=== PATIENT | male | born 1955 | race Hispanic/Latino ===

== ENCOUNTER 2017-05-30 21:04 | Emergency (ER) | payer BC ==
--- NOTE | 2017-05-30 22:43 | RAD ---
CERVICAL SPINE THREE VIEWS 05/30/17 HISTORY: Arrested for DWI with negative MRIs and neck pain. COMPARISON: None. FINDINGS: Dense calcification of the right carotid bulb. The C1-2 articulation appears normal although limited due to non true views. Cervical spine alignment is normal. No acute fracture. IMPRESSION: Mild spondylosis. No acute fracture. POS: [facility]
== END 2017-05-30 23:11 ==
LOC: ERS 21:04
DX: F10.129 Alcohol abuse with intoxication, unspecified (principal); M54.2 Cervicalgia; G89.29 Other chronic pain; E11.9 Type 2 diabetes mellitus without complications; I10 Essential (primary) hypertension
CPT/HCPCS: 72040

== ENCOUNTER 2019-07-17 17:32 | Observation (INO) | payer BC, SELFPAY ==
--- NOTE | 2019-07-17 18:27 | RAD ---
PORTABLE CHEST ONE VIEW: 07/17/19 at 6:13 p.m. HISTORY: Chest pain. FINDINGS: There is elevation of the left hemidiaphragm. The heart size is normal. No focal areas of consolidati on, pneumothoraces, or pleural effusions are seen. IMPRESSION: No acute process. POS: [facility]
[2019-07-17 18:36] LABS: #Basophils 0.1 thou/uL (0.0-0.2); #Eosinphils 0.6 thou/uL (0.0-0.7); #Lymphocytes 4.3 thou/uL (1.20-3.40); #Monocytes 1.4 thou/uL (0.11-0.59); #Neutrophils 7.6 thou/uL (1.40-6.50); %Basophils 0.9 % (0.0-1.0); %Eosinophils 4.4 % (0.0-10.0); %Lymphocytes 30.7 % (21.0-51.0); %Monocytes 10.2 % (0.0-10.0); %Neutrophils 53.8 % (42.0-75.0); Hemoglobin 14.4 g/dL (14.0-18.0); Mean Corpuscular HGB CONC 34.4 g/dL (32.0-36.0); Mean Corpuscular Hemoglobin 32.2 pg (27.0-31.0); Mean Corpuscular Volume 93.5 fL (78.0-98.0); Platelet Count 196 thou/uL (130-400); Red Blood Cell (RBC) Count 4.46 mill/uL (4.70-6.10); White Blood Cell (WBC) Count 14.1 thou/uL (4.8-10.8)
[2019-07-17] MEDS ORDERED: Morphine 4 MG/ML VIAL ONE (18:46)
[2019-07-17 18:54] LABS: ALT (SGPT) 12 U/L (8-55); AST (SGOT) 19 U/L (5-34); Albumin 3.4 g/dL (3.4-4.8); Alkaline Phosphatase 308 U/L (40-110); Anion Gap 15 mmol/L (10-20); BUN (Urea Nitrogen) 14 mg/dL (8.4-25.7); Bilirubin, Total 0.5 mg/dL (0.2-1.2); Calc. Creatinine Clearance 0 mL/min (70-130); Calcium 8.4 mg/dL (7.8-10.44); Carbon Dioxide 20 mmol/L (23-31); Chloride 101 mmol/L (98-107); Estimated GFR-MDRD 67; Globulin 3.5 g/dL (2.4-3.5); Glucose 299 mg/dL (80-115); Lipase 50 U/L (8-78); Potassium 4.2 mmol/L (3.5-5.1); Protein, Total 6.9 g/dL (5.8-8.1); Sodium 132 mmol/L (136-145)
[2019-07-17 19:06] LABS: INR-International Normal Ratio 1.2; Prothrombin Time 14.8 SEC (12.0-14.7)
[2019-07-17 19:08] LABS: D-Dimer Test 0.34 *mcg/mL (0.27-0.43)
[2019-07-17 19:13] LABS: Bilirubin Negative (Negative); Blood, Urine Negative (Negative); Clarity Clear (Clear); Glucose, Urine (Dipstick) Greater than 1000 mg/dL (Negative); Leukocyte Negative Leu/uL (Negative); Nitrite Negative (Negative); Protein, Urine (Dipstick) Negative (Neg-Trace); Urobilinogen Normal mg/dL (Less than 2)
--- NOTE | 2019-07-17 20:58 | ULT ---
GALLBLADDER ULTRASOUND: 07/17/19 HISTORY: Elevated LFTs. Epigastric pain. Real time imaging of the right upper quadrant shows a slightly distended appearing gallbladder withou t gallstones. Technologist describes a negative ultrasound Gates's sign. The common duct is 3 mm. Th e visualized liver parenchyma shows no focal findings. It is somewhat coarse and heterogeneous in ech otexture suggesting some fatty change. The pancreas is obscured. Right kidney is normal in size and n ot obstructed. IMPRESSION: Heterogeneous appearance to the liver suggesting some fatty change and a slightly nodular surface con tour which would be compatible with cirrhotic type change. POS: [facility]
[2019-07-17 21:51] LABS: Troponin I 0.018 ng/mL (< 0.028)
[2019-07-18 00:23] VITALS: BMI 30.2
[2019-07-18] MEDS ORDERED: Acetaminophen 325 MG TAB PO PRN (00:23)
[2019-07-18] MEDS ORDERED: Acetaminophen 650 MG Suppository PR PRN (00:23)
[2019-07-18] MEDS ORDERED: Ondansetron PF 4 MG/2 ML Vial IVP PRN (00:23)
[2019-07-18] MEDS ORDERED: Ondansetron ODT 4 MG TAB PO PRN (00:23)
[2019-07-18] MEDS ORDERED: Sodium Chloride 0.9% 1,000 ML IV SCH (00:30)
[2019-07-18] MEDS ORDERED: HumaLOG 300 UNITS/3 ML VIAL SC PRN (00:37)
[2019-07-18] MEDS ORDERED: Dextrose 50% Abboject 50 ML SYRINGE SLOW IVP PRN (00:37)
[2019-07-18] MEDS ORDERED: Dextrose 5% in Water 1,000 ML IV PRN (00:37)
[2019-07-18 01:01] LABS: Lactic Acid 1.7 mmol/L (0.5-2.2)
[2019-07-18 01:10] LABS: Troponin I 0.029 ng/mL (< 0.028)
[2019-07-18 01:44] LABS: Amphetamine Not Detected (NotDetected); Barbiturates Screen Not Detected (NotDetected); Benzodiazepine Screen Not Detected (NotDetected); Cocaine Metabolite Screen Not Detected (NotDetected); Medtox Control Line Valid? VALID (VALID); Medtox Reader # READER 4; Methadone Not Detected (NotDetected); Methamphetamine Not Detected (NotDetected); Opiate Screen Not Detected (NotDetected); Oxycodone Screen Not Detected (NotDetected); Phencyclidine (PCP) Not Detected (NotDetected); THC/Cannabinoid Screen Not Detected (NotDetected); Tricyclic Screen Not Detected (NotDetected)
[2019-07-18 05:17] LABS: #Basophils 0.1 thou/uL (0.0-0.2); #Eosinphils 0.8 thou/uL (0.0-0.7); #Lymphocytes 4.2 thou/uL (1.20-3.40); #Monocytes 1.2 thou/uL (0.11-0.59); #Neutrophils 7.4 thou/uL (1.40-6.50); %Basophils 0.7 % (0.0-1.0); %Lymphocytes 30.8 % (21.0-51.0); %Monocytes 8.6 % (0.0-10.0); Mean Corpuscular Hemoglobin 33.1 pg (27.0-31.0); Mean Corpuscular Volume 94.6 fL (78.0-98.0); Mean Platelet Volume 6.7 fL (7.4-10.4); Platelet Count 177 thou/uL (130-400); RBC Distribution Width 12.1 % (11.5-14.5); Red Blood Cell (RBC) Count 4.24 mill/uL (4.70-6.10); White Blood Cell (WBC) Count 13.7 thou/uL (4.8-10.8)
[2019-07-18 05:35] LABS: Anion Gap 12 mmol/L (10-20); BUN (Urea Nitrogen) 12 mg/dL (8.4-25.7); Calc. Creatinine Clearance 87 mL/min (70-130); Calcium 8.6 mg/dL (7.8-10.44); Carbon Dioxide 25 mmol/L (23-31); Cardiac Risk 2.7 (Less than 4.5); Chloride 102 mmol/L (98-107); Cholesterol 155 mg/dl (< 200 Desired); Estimated GFR-MDRD Greater than 90; Glucose 332 mg/dL (80-115); HDL Cholesterol 58 mg/dL (>60 Neg Risk); LDL Cholesterol, Calculated 86 mg/dL; Sodium 135 mmol/L (136-145); Triglycerides 56 mg/dL (Less than 150)
[2019-07-18 05:40] LABS: Troponin I 0.018 ng/mL (< 0.028)
[2019-07-18] MEDS ORDERED: Famotidine/PF 20 mg/2ml Vial SLOW IVP SCH (09:00)
--- NOTE | 2019-07-18 09:16 | CT ---
CT left shoulder noncontrast HISTORY: Left shoulder pain. FINDINGS: Acromioclavicular and glenohumeral alignment are maintained. Osteophytosis and joint space narrowing of each. Acromion is unremarkable. No acute fracture, dislocation, or aggressive osseous erosions. IMPRESSION: Osteoarthritic changes about the shoulder. No acute osseous abnormalities are demonstrate d.
[2019-07-18] MEDS: Aspirin 81 mg Enteric Coated Tablet PO SCH (09:30)
--- NOTE | 2019-07-18 09:53 | CT ---
CT CERVICAL SPINE WITH CORONAL AND SAGITTAL REFORMATIONS: HISTORY: A 63-year-old male with neck stiffness and pain and limited range of motion. FINDINGS: There are mild degenerative changes. No fracture, subluxation, bony destruction or facet malalignment is seen. No significant central canal stenosis or neural foraminal stenosis is identified. POS: [facility]
[2019-07-18] MEDS ORDERED: Sodium Chloride 0.9% (PF) 10 ML VIAL FS PRN (10:46)
[2019-07-18] MEDS ORDERED: Pantoprazole 40 MG VIAL IVP SCH (11:00)
[2019-07-18 11:16] LABS: Hemoglobin A1c 9.8 % (4.0-6.0)
[2019-07-18] MEDS: HumaLOG 300 UNITS/3 ML VIAL SC PRN (16:48)
[2019-07-18] MEDS: Pantoprazole 40 MG VIAL IVP SCH (21:08)
[2019-07-18] MEDS: Insulin Glargine 8 UNITS in Pre-Filled Syringe 1 EACH SC SCH (21:09)
--- NOTE | 2019-07-19 07:49 | HP ---
TIME OF ASSESSMENT: 0030 hours. CHIEF COMPLAINT: Neck pain and chest pain. HISTORY OF PRESENT ILLNESS: Mr. Castañeda is a 63-year-old man, who has a history of hypertension and diabetes, presenting with complaints of chest pain for the last 3 weeks. The patient states he has had the pain once every other day and it has come on while he has exerted himself and while at rest. There is no particular pattern to it, and he is not sure how long it lasts. However today, it became more severe and lasted 1 to 2 hours. The patient states he had gone for a very long walk and suddenly had pain across the center of his chest radiating into his left shoulder and left side of his neck. The patient reports having chronic neck pain and stiffness with limited range of motion, which has been constant since little less than a year ago before he went to group home. The patient was recently released few weeks ago. He states he has had x-ray imaging in the past, and I do see an x-ray from Friday and there is a cervical spine x-ray from May 2017, that demonstrated mild spondylosis. The patient states he thought the neck pain was due to the way he was sleeping while in group home, but it has not improved since he has been released. He denies any trauma/injuries. With regard to the chest pain, he states it had resolved once he arrived to the emergency department. He has had no recurring chest pain since. He denies any associated shortness of breath or diaphoresis. No lightheadedness. Denies having any recent cough or hemoptysis. Reports having issues with epigastric discomfort and occasional nausea. When he has felt the chest discomfort in the past, he states he felt it was associated with increased belching and relieved by belching. Denies any bowel changes. No dysphagia or odynophagia. No significant weight changes. Denies any lower extremity swelling or edema. All other review of systems are negative. ED COURSE: In the emergency department, the patient underwent an EKG, which demonstrated a normal sinus rhythm with a heart rate of 78. He had no ST changes or T-wave abnormalities. He was given 324 mg of aspirin and 4 mg of morphine. He underwent laboratory studies, which showed a white count of 14.1, hemoglobin of 14.4, and platelets 196. PT 14.8, INR 1.2, and PTT 30. D-dimer 0.34. Sodium 132, potassium 4.2, chloride 104, BUN 14, creatinine 1.12, GFR 67, glucose 299, and alkaline phosphatase 308. LFTs unremarkable. Troponin negative x2. Albumin 3.4. Lipase normal. BNP 10.3. TSH 2.3934. Urinalysis notable for greater than 1000 glucose, otherwise unremarkable. A plasma alcohol level was checked and negative. Chest x-ray obtained in the emergency department showed no acute cardiopulmonary process. He also underwent an abdominal ultrasound, which showed heterogeneous appearance of the liver, suggesting fatty change and a slightly nodular surface contour, felt to be compatible with cirrhotic-type changes. He was noted to have a slightly distended appearing gallbladder without gallstones. Negative Gates sign. Common bile duct measuring 3 mm. PAST MEDICAL HISTORY: 1. Type 2 diabetes mellitus. 2. Hypertension. 3. Chronic neck pain. PAST SURGICAL HISTORY: Surgery to his left hand due to a deep laceration couple of inches above the wrist. He has residual numbness and limited mobility involving this hand. SOCIAL HISTORY: He denies any tobacco use or alcohol consumption. States he has not had alcohol since before he went to group home. Denies any illicit drug use. ALLERGIES: NO KNOWN DRUG ALLERGIES. CURRENT MEDICATIONS: The patient states he ran out of his medications after being released from group home. He was only given two weeks worth of medications. He is on the following; 1. Aspirin. 2. Humalog. 3. Lantus. 4. Lisinopril. 5. Metformin. PHYSICAL EXAMINATION: GENERAL: The patient appears thin, well developed, and in no acute distress. VITAL SIGNS: Temperature 98.3, pulse 70, respirations 18, O2 saturation 97% on room air, and blood pressure 165/74. HEENT: Normocephalic and atraumatic. Pupils are equal, round, and reactive to light. Sclerae without icterus. Oropharynx is clear. NECK: With some discomfort on palpation along the cervical spine. The patient states this is chronic. Limited range of motion. LUNGS: Clear to auscultation bilaterally without any wheezes, rales, or rhonchi. CARDIAC: Regular rate and rhythm. Audible murmur. ABDOMEN: Soft, nondistended. Epigastric discomfort with palpation. No guarding or rigidity. Negative Gates sign. : No renal angle tenderness. EXTREMITIES: No lower leg swelling or edema. NEUROLOGIC: Alert and oriented x3. SKIN: Warm and dry. INVESTIGATIONS: As mentioned above in the HPI. IMPRESSION AND PLAN: Mr. Castañeda is a 63-year-old gentleman, who has been referred for the following; 1. Acute coronary syndrome rule out. The patient with complaints of chest pain for the last 2 to 3 weeks, which was significantly worse today. He rated it 10/10 in severity, lasting until he arrived to the emergency department. He has been given aspirin 324 mg and morphine. He is without any chest pain at present. Concerns for possible acute coronary syndrome. We will continue daily aspirin. We will obtain a lipid panel in the morning. We will keep him n.p.o. after midnight. Stress test ordered, which he states he has never had done before. He does have risk factors with history of hypertension and diabetes. Troponins negative x2. We will continue to trend troponins. Echo ordered. We will add urine drug screen. 2. Chronic neck pain. The patient states he has had severe neck pain with limited range of motion for nearly a year. He states the pain today in his chest radiated to his left shoulder and up into his neck. There is a possibility that the pain in his chest could have been due to radiculopathy associated with underlying cervical spine problems. We will obtain a CT cervical spine and given the limited range of motion and tenderness involving the left shoulder, we will obtain CT of the shoulder and shoulder joint as well. 3. Diabetes mellitus, uncontrolled. The patient ran out of medications 2 to 3 weeks ago. He has no PCP. We will monitor blood glucose and initiate insulin sliding scale. We will hold metformin, which he was previously on. 4. Hypertension. Monitor blood pressure and resume home medications once verified. 5. Epigastric pain. The patient with history of heavy alcohol use before going to group home. LFTs notable for an alkaline phosphatase of 308, otherwise unremarkable. Lipase normal. He could have some underlying gastritis; therefore, we will start pantoprazole. 6. Deep venous thrombosis prophylaxis with mechanical SCDs. 7. Code status, full. Surrogate decision maker is Marcellus Castañeda, his son. The patient's case to be discussed with attending for further recommendations. Job ID: [id number]
[2019-07-19] MEDS ORDERED: ADENOSINE 60 MG/20 ML VIAL ONE (09:34)
[2019-07-19] MEDS: Aspirin 81 mg Enteric Coated Tablet PO SCH (11:52)
[2019-07-19] MEDS: Pantoprazole 40 MG VIAL IVP SCH ×2 (11:53→20:49)
--- NOTE | 2019-07-19 13:12 | NM ---
CARDIAC SPECT: CLINICAL HISTORY: 63-year-old male with chest pain, hypertension, diabetes. TECHNIQUE: A myocardial perfusion scan was performed using the single isotope one day protocol with technetium-9 9m sestamibi. 10 mCi were injected intravenously for the rest exam followed by 30 mCi for the stress exam. Pharmacologic stress with Adenosine was monitored and interpreted by Ameya Rapp. FINDINGS: There is a small area of fixed defect in the distal anterior wall. There is normal contractility and wall thickening indicating this is most likely artifactual. No reversible defects are seen. GATED SPECT LVEF: 68%. WALL MOTION EXAM: Normal. IMPRESSION: No evidence of reversible ischemia. POS: [facility]
[2019-07-19 15:31] LABS: #Basophils 0.1 thou/uL (0.0-0.2); #Eosinphils 0.7 thou/uL (0.0-0.7); #Lymphocytes 3.3 thou/uL (1.20-3.40); #Monocytes 1.1 thou/uL (0.11-0.59); #Neutrophils 7.2 thou/uL (1.40-6.50); %Basophils 0.8 % (0.0-1.0); %Eosinophils 5.3 % (0.0-10.0); %Lymphocytes 26.8 % (21.0-51.0); %Monocytes 8.7 % (0.0-10.0); %Neutrophils 58.3 % (42.0-75.0); Hemoglobin 13.3 g/dL (14.0-18.0); Mean Corpuscular HGB CONC 34.8 g/dL (32.0-36.0); Mean Corpuscular Hemoglobin 33.1 pg (27.0-31.0); Mean Corpuscular Volume 95.2 fL (78.0-98.0); Mean Platelet Volume 6.9 fL (7.4-10.4); Platelet Count 160 thou/uL (130-400); RBC Distribution Width 11.9 % (11.5-14.5); Red Blood Cell (RBC) Count 4.02 mill/uL (4.70-6.10); White Blood Cell (WBC) Count 12.4 thou/uL (4.8-10.8)
[2019-07-19 15:42] LABS: Anion Gap 9 mmol/L (10-20); BUN (Urea Nitrogen) 15 mg/dL (8.4-25.7); Calc. Creatinine Clearance 87 mL/min (70-130); Calcium 8.3 mg/dL (7.8-10.44); Carbon Dioxide 25 mmol/L (23-31); Chloride 103 mmol/L (98-107); Estimated GFR-MDRD Greater than 90; Glucose 313 mg/dL (80-115); Potassium 4.1 mmol/L (3.5-5.1); Sodium 133 mmol/L (136-145)
[2019-07-19] MEDS: HumaLOG 300 UNITS/3 ML VIAL SC PRN (17:46)
[2019-07-19] MEDS: Insulin Glargine 8 UNITS in Pre-Filled Syringe 1 EACH SC SCH (20:53)
[2019-07-20] MEDS: Aspirin 81 mg Enteric Coated Tablet PO SCH (08:10)
[2019-07-20] MEDS: Pantoprazole 40 MG VIAL IVP SCH (08:11)
[2019-07-20 08:22] VITALS: BP 111/67; TEMP 97.7
[2019-07-20] MEDS ORDERED: Lisinopril 20 MG TAB PO SCH (09:00)
--- NOTE | 2019-07-21 10:27 | DIS ---
DATE OF ADMISSION: 07/17/2019 DATE OF DISCHARGE: 07/20/2019 DISCHARGE DIAGNOSES: 1. Chest pain. 2. Chronic neck pain. 3. Diabetes. 4. Hypertension. HOSPITAL COURSE: The patient is a very pleasant 63-year-old male with history of hypertension, diabetes, who just recently got out of [facility], who complains of chest pain going on for the past 3 weeks. The patient at this time underwent troponin checks and his troponins were negative, except for the one that was mildly elevated. On physical examination, he was found to have a systolic murmur and he did undergo an echocardiogram which indicated an EF of 55% to 60%, with [id number] aortic stenosis. At this time, he underwent a stress test, which indicated EF of 68%, wall motion was normal, however he did have a small fixed defect in the distal anterior wall. No reversible defects were seen. The patient also had an abdominal ultrasound which indicated cirrhotic liver, fatty changes. The patient does have a history of drinking prior to his incarceration. The patient did have an upper extremity CT which indicated osteoarthritis to his shoulder. He also had a cervical spine CT given his neck pain, which indicated mild degenerative changes. No fracture or subluxation noted. No significant central canal stenosis noted. The patient's chest pain improved. He will be discharged home. He will follow up with his primary. HOME MEDICATIONS: 1. Insulin, he was taking only regular insulin. His insulin has been changed to 70/30 of 10 units twice a day. 2. Lisinopril 20 mg daily. 3. Metformin 1000 mg b.i.d. 4. Aspirin 81 mg daily. 5. Pravastatin 20 mg daily. 6. Duloxetine 60 mg daily. I did mention to him that he needs to stop taking his short-acting since he is going to be on a combination of short-acting and long-acting insulin. His prescriptions were called in pharmacy since he had no money to purchase that prescriptions. We did provide him services for that also. PHYSICAL EXAMINATION: VITAL SIGNS: His discharge vitals; temp 97.8, pulse 68, blood pressure 117/68, respirations 16, 97% on room air. GENERAL: He is awake, alert, and oriented x3. Does not appear in any distress. CV: S1 and S2 present. No murmurs, rubs, or gallops. Again, he will be discharged home. He will follow up with primary. Job ID: [id number]
== END 2019-07-20 12:44 | disposition home or self-care (01) ==
LOC: ERS 17:32 → 2SW 20:45
PROVIDERS: ADMIT Family Medicine; ATTEND Family Medicine
DX: R07.9 Chest pain, unspecified (principal); G89.29 Other chronic pain; M54.2 Cervicalgia; E11.9 Type 2 diabetes mellitus without complications; I10 Essential (primary) hypertension; R10.13 Epigastric pain; R79.89 Other specified abnormal findings of blood chemistry; I35.0 Nonrheumatic aortic (valve) stenosis; M19.012 Primary osteoarthritis, left shoulder; Z79.4 Long term (current) use of insulin; Z79.82 Long term (current) use of aspirin; Z79.899 Other long term (current) drug therapy
CPT/HCPCS: 36415; 36416; 71045; 72125; 76705; 78452; 80048; 80053; 80061; 80306; 80307; 81003; 83036; 83605; 83690; 83735; 83880; 84443; 84484; 85025; 85379; 85610; 85730; 93005; 93017; 93306; 96374; 96375; 96376; A9500; C9113; G0378; J0153; J1815; J2270; S0028

== ENCOUNTER 2020-03-28 14:26 | Observation (INO) | payer OTHER, SELFPAY ==
[2020-03-28 14:56] LABS: #Basophils 0.1 thou/uL (0.0-0.2); #Lymphocytes 3.1 thou/uL (1.20-3.40); #Monocytes 0.9 thou/uL (0.11-0.59); #Neutrophils 5.8 thou/uL (1.40-6.50); %Basophils 1.2 % (0.0-1.0); %Eosinophils 8.8 % (0.0-10.0); %Lymphocytes 28.4 % (21.0-51.0); %Monocytes 7.8 % (0.0-10.0); %Neutrophils 53.8 % (42.0-75.0); Hemoglobin 13.2 g/dL (14.0-18.0); Mean Corpuscular Hemoglobin 30.8 pg (27.0-31.0); Mean Corpuscular Volume 90.7 fL (78.0-98.0); Mean Platelet Volume 6.5 fL (7.4-10.4); Platelet Count 214 thou/uL (130-400); RBC Distribution Width 12.4 % (11.5-14.5); Red Blood Cell (RBC) Count 4.28 mill/uL (4.70-6.10); White Blood Cell (WBC) Count 10.8 thou/uL (4.8-10.8)
--- NOTE | 2020-03-28 15:08 | CT ---
CT BRAIN WITHOUT CONTRAST: HISTORY: Altered mental status, hypotension COMPARISON: 08/19/2016 FINDINGS: No evidence of acute infarct, hemorrhage, midline shift or abnormal extra-axial fluid collections is seen. The ventricular size is appropriate and the basilar cisterns are patent. The bony calvarium is intact. The visualized paranasal sinuses and mastoid air cells are well aerated. IMPRESSION: No CT evidence of acute intracranial process.
[2020-03-28 15:10] LABS: ALT (SGPT) 12 U/L (8-55); AST (SGOT) 20 U/L (5-34); Albumin 3.1 g/dL (3.4-4.8); Alkaline Phosphatase 183 U/L (40-110); Anion Gap 16 mmol/L (10-20); BUN (Urea Nitrogen) 7 mg/dL (8.4-25.7); Bilirubin, Total 0.5 mg/dL (0.2-1.2); Calc. Creatinine Clearance 0 mL/min (70-130); Calcium 8.1 mg/dL (7.8-10.44); Carbon Dioxide 19 mmol/L (23-31); Chloride 103 mmol/L (98-107); Estimated GFR-MDRD 86; Globulin 3.8 g/dL (2.4-3.5); Glucose 403 mg/dL (80-115); Potassium 3.7 mmol/L (3.5-5.1); Protein, Total 6.9 g/dL (5.8-8.1); Sodium 134 mmol/L (136-145)
--- NOTE | 2020-03-28 15:10 | RAD ---
XR Chest 1 View Portable HISTORY: Hypoglycemia and hypotension COMPARISON: 07/17/2019 FINDINGS: The heart size is normal. There is continued elevation of the left hemidiaphragm. The lungs are without focal areas of consolidation, pneumothorax or pleural effusions. IMPRESSION: No radiographic evidence of acute cardiopulmonary process.
[2020-03-28] MEDS ORDERED: Potassium Chloride 20 MEQ TAB ONE (17:23)
[2020-03-28] MEDS ORDERED: Insulin Regular 300 UNITS/3 ML VIAL ONE (17:23)
[2020-03-28 17:56] LABS: Base Excess-Venous 2.1 mmol/L (-2.0 to 3.0); Bicarbonate (HCO3v) 24.3 mmol/L (22.0-28.0); CO2 Tension (PvCO2) 30.3 mmHg (40.0-50.0); Chloride 108 mmol/L (98-107); Hemoglobin - Calc 13.2 g/dL (14.0-18.0); Potassium 3.4 mmol/L (3.5-5.1); Sodium 141 mmol/L (138-145); T. Carbon Dioxide 25.3 mmol/L (22.0-28.0); vO2 Saturation-calc 86.4 % (60.0-85.0)
--- NOTE | 2020-03-28 18:13 | PDOC.HHP ---
Hospitalist HPI - History of Present Illness hyperglycemia History of Present Illness: This is a 64-year-old male patient with a history of diabetes mellitus who upon presentation to his PCP was referred to the ED on account of hypoglycemia with glucose above 500. He was brought in by EMS. Patient was on for the past month or so he had run out of his insulin syringe and therefore has not been giving himself insulin for his diabetes. He admits to polyuria polydipsia and nocturia. He also notes having passed out a couple of times within the past week all of a sudden. He denies any associated palpitation, headaches or dizziness. He however complains of severe easy fatigability. Of note he was recently admitted for chest pain and an echo showed EF of 65 to 60% with somewhat thickened aortic valves. On arrival of the ED His blood glucose was noted to be 403, bicarb was 19, anion gap was 12 however beta hydroxybutyric acid was elevated at 1.01. He also had an isolated elevated alkaline phosphatase. In the ED was given a bag of IV fluids and 10 units regular insulin with his blood glucose improving to 267 and then 121. Given his history of recent falls CT scan of his head was done which was negative for any acute events. Potassium was also replaced with insulin. Hospitalist team was consulted to admit patient. Hospitalist ROS - Review of Systems Constitutional: denies: fever, chills, sweats Respiratory: reports: shortness of breath, SOB with excertion. denies: cough, hemoptysis Cardiovascular: denies: chest pain, palpitations, orthopnea, paroxysmal noc. dyspnea Gastrointestinal: denies: nausea, vomiting, abdominal pain, diarrhea Genitourinary: reports: frequency. denies: dysuria, incontinence, hematuria, retention Neurological: reports: weakness. denies: numbness, incoordination, change in speech - Medication Medications: Aspirin 81 mg daily Duloxetine 60 mg daily Pravastatin 20 mg daily Insulin NPH 10 units subcu twice daily Lisinopril 20 mg daily Metformin 20 mg daily Allergies: No known drug allergies - Exam General - other findings: Patient alert and oriented. No acute distress. Heart - other findings: S1-S2 present and normal. No murmurs gallops or rubs. Respiratory - other findings: Air entry adequate bilaterally. No rhonchi or rales Gastrointestinal - other findings: Soft, nontender bowel sounds present and normal Extremities - other findings: No pedal edema Neurological: cranial nerve grossly intact, no new deficit Psychiatric: A&O x 3 Hospitalist Results - Labs Result Diagrams: 03/28/20 14:47 03/28/20 17:38 Lab results: WBC 10.8 thou/uL (4.8-10.8) 03/28/20 14:47 Hgb 13.2 g/dL (14.0-18.0) L 03/28/20 14:47 Hct 38.8 % (42.0-52.0) L 03/28/20 14:47 MCV 90.7 fL (78.0-98.0) 03/28/20 14:47 Plt Count 214 thou/uL (130-400) 03/28/20 14:47 Neutrophils % 53.8 % (42.0-75.0) 03/28/20 14:47 VBG pCO2 30.3 mmHg (40.0-50.0) L 03/28/20 17:51 VBG pO2 45.7 mmHg (35.0-45.0) H 03/28/20 17:51 Sodium 134 mmol/L (136-145) L 03/28/20 14:47 Potassium 3.7 mmol/L (3.5-5.1) 03/28/20 14:47 Chloride 103 mmol/L (98-107) 03/28/20 14:47 Carbon Dioxide 19 mmol/L (23-31) L 03/28/20 14:47 BUN 7 mg/dL (8.4-25.7) L 03/28/20 14:47 Creatinine 0.90 mg/dL (0.7-1.3) 03/28/20 14:47 Glucose 403 mg/dL (80-115) H 03/28/20 14:47 Calcium 8.1 mg/dL (7.8-10.44) 03/28/20 14:47 Total Bilirubin 0.5 mg/dL (0.2-1.2) 03/28/20 14:47 AST 20 U/L (5-34) 03/28/20 14:47 ALT 12 U/L (8-55) 03/28/20 14:47 Alkaline Phosphatase 183 U/L (40-110) H 03/28/20 14:47 Troponin I Less than 0.010 ng/mL (< 0.028) 03/28/20 14:44 Serum Total Protein 6.9 g/dL (5.8-8.1) 03/28/20 14:47 Albumin 3.1 g/dL (3.4-4.8) L 03/28/20 14:47 Hospitalist H&P A/P - Plan Plan: This is a 64-year-old male patient with a history of coronary artery disease, diabetes mellitus on insulin who presents as a transfer from his PCP on account of hyperglycemia with mild DKA. He will be admitted for observation and managed for hyperglycemia DKA Glucose was above 500 with beta hydroxybutyrate at 1.01 However did not have an anion gap. He had a mild metabolic acidosis. Hypoglycemia resolved with 10 units of regular insulin with glucose in the 100s after 1 dose. We will monitor overnight Discharge with prescription for his syringes and needles for insulin administration. Elevated alkaline phosphatase Unclear the significance of this We will repeat Hypertension Hold lisinopril for tonight Blood pressures were soft Depression Continue Cymbalta once verified Falls Has had recurrent falls Dyspnea likely secondary to hypotension from polyuria due to diabetes mellitus and hyperglycemia. This may be possible syncope We will check orthostatics Fall precautions Monitoring on telemetry. VTE prophylaxisLovenox
[2020-03-28 18:15] LABS: Troponin I Less than 0.010 ng/mL (< 0.028)
[2020-03-28 18:22] LABS: Chloride 105 mmol/L (98-107); Potassium 3.5 mmol/L (3.5-5.1); Sodium 137 mmol/L (136-145)
[2020-03-28 18:23] LABS: Calcium 8.1 mg/dL (7.8-10.44); Glucose 267 mg/dL (80-115)
[2020-03-28 18:25] LABS: Anion Gap 16 mmol/L (10-20); Carbon Dioxide 20 mmol/L (23-31)
[2020-03-28 18:26] LABS: Calc. Creatinine Clearance 0 mL/min (70-130); Estimated GFR-MDRD Greater than 90
[2020-03-28 18:27] LABS: BUN (Urea Nitrogen) 6 mg/dL (8.4-25.7); Phosphorus 2.5 mg/dL (2.3-4.7)
[2020-03-28 18:28] LABS: Magnesium 1.9 mg/dL (1.6-2.6)
[2020-03-28] MEDS ORDERED: Enoxaparin Sodium 40 MG/0.4 ML SYRINGE SC SCH (19:00)
[2020-03-28] MEDS ORDERED: Acetaminophen 325 MG TAB PO PRN (20:17)
[2020-03-28 20:50] LABS: Bilirubin Negative (Negative); Blood, Urine 2+ (Negative); Clarity Clear (Clear); Glucose, Urine (Dipstick) Greater than 1000 mg/dL (Negative); Ketone, Urine 20 mg/dL (Negative); Leukocyte Negative Leu/uL (Negative); Nitrite Negative (Negative); Protein, Urine (Dipstick) Negative (Neg-Trace); Specific Gravity, Urine 1.034 (1.002-1.036)
[2020-03-28] MEDS ORDERED: Dextrose 5% in Water 1,000 ML IV PRN (21:35)
[2020-03-28] MEDS ORDERED: HumaLOG 300 UNITS/3 ML VIAL SC PRN (21:35)
[2020-03-28] MEDS ORDERED: Dextrose 50% Abboject 50 ML SYRINGE SLOW IVP PRN (21:35)
[2020-03-28 21:53] LABS: Troponin I Less than 0.010 ng/mL (< 0.028)
[2020-03-28 22:52] VITALS: BMI 30.1
[2020-03-28 22:55] LABS: Anion Gap 15 mmol/L (10-20); BUN (Urea Nitrogen) 6 mg/dL (8.4-25.7); Calc. Creatinine Clearance 93 mL/min (70-130); Carbon Dioxide 20 mmol/L (23-31); Chloride 106 mmol/L (98-107); Estimated GFR-MDRD Greater than 90; Glucose 238 mg/dL (80-115); Potassium 3.7 mmol/L (3.5-5.1); Sodium 137 mmol/L (136-145)
[2020-03-29] MEDS: NS 0.9% w/ 40 MEQ KCL 1,000 ML IV SCH ×3 (01:38→09:31)
[2020-03-29] MEDS: HumaLOG 300 UNITS/3 ML VIAL SC PRN ×2 (01:39→21:11)
[2020-03-29 02:31] LABS: Anion Gap 12 mmol/L (10-20); BUN (Urea Nitrogen) 9 mg/dL (8.4-25.7); Calc. Creatinine Clearance 79 mL/min (70-130); Calcium 7.9 mg/dL (7.8-10.44); Carbon Dioxide 22 mmol/L (23-31); Chloride 105 mmol/L (98-107); Estimated GFR-MDRD 79; Glucose 494 mg/dL (80-115); Potassium 4.5 mmol/L (3.5-5.1); Sodium 134 mmol/L (136-145)
[2020-03-29] MEDS: Sodium Chloride 0.9% 1,000 ML IV SCH ×2 (10:06→22:25)
[2020-03-29] MEDS ORDERED: metFORMIN 500 MG TAB PO SCH (10:30)
[2020-03-29 12:37] LABS: SARS-CoV-2 MS2 Positive; SARS-CoV-2 N Gene Negative; SARS-CoV-2 S Gene Negative; SARS-CoV-2 by NAA Not Detected (NotDetected); SARS-CoV-2 orf1ab Negative
[2020-03-29] MEDS ORDERED: HumaLOG 300 UNITS/3 ML VIAL SC PRN (12:49)
[2020-03-29] MEDS ORDERED: Insulin Glargine 15 UNITS in Pre-Filled Syringe 1 EACH SC SCH (13:00)
[2020-03-29 13:06] LABS: Hemoglobin A1c 11.3 % (4.0-6.0)
[2020-03-29] MEDS ORDERED: Acetaminophen 325 MG TAB PO PRN (17:19)
[2020-03-29] MEDS ORDERED: Acetaminophen 325 MG TAB PO SCH (17:30)
[2020-03-29] MEDS: metFORMIN 500 MG TAB PO SCH (18:00)
--- NOTE | 2020-03-29 18:50 | PDOC.HOSPP ---
- Subjective Encounter Date: 03/29/20 Encounter Time: 09:00 Subjective: no overnight events. this morning, feeling well and has no complaints. - Objective Vital Signs & Weight: Vital Signs (12 hours) Temp Pulse Resp BP Pulse Ox 03/29/20 15:35 97.7 F 96 18 146/91 H 96 03/29/20 10:45 98.2 F 91 16 126/74 94 L 03/29/20 08:00 97.6 F 88 18 125/81 95 Weight Weight 154 lb 7 oz I&O: 03/28/20 03/29/20 03/30/20 06:59 06:59 06:59 Intake Total 1910 Output Total 1500 Balance 410 Result Diagrams: 03/28/20 14:47 03/29/20 02:04 Additional Labs: Accuchecks 03/29/20 03/29/20 03/29/20 17:25 10:39 06:12 POC Glucose 250 H 376 H 258 H 03/29/20 03/28/20 03/28/20 00:58 22:40 19:13 POC Glucose 405 H 457 H 121 H Hospitalist ROS - Review of Systems Constitutional: denies: chills, sweats Respiratory: denies: cough, shortness of breath Cardiovascular: denies: chest pain, palpitations Gastrointestinal: denies: nausea, vomiting, abdominal pain, diarrhea Genitourinary: denies: frequency - Medication Medications: Active Medications Generic Name Dose Route Start Last Admin Trade Name Freq PRN Reason Stop Dose Admin Sodium Chloride 1,000 mls @ 100 mls/hr 03/29/20 09:00 03/29/20 10:06 Normal Saline 0.9% IV 1,000 mls .Q10H MONI Administration Insulin Human Lispro 0 units 03/29/20 01:09 03/29/20 01:39 Humalog SC 5 unit .BEDTIME SLIDING SC PRN Administration BEDTIME SLIDING SCALE Protocol Insulin Human Lispro 0 units 03/29/20 12:49 03/29/20 17:58 Humalog 300 Units/3 Ml Vial SC 3 unit .MILD SLIDING SCALE PRN Administration Mild Correctional Scale Metformin HCl 1,000 mg 03/29/20 17:00 03/29/20 18:00 Metformin 500 Mg Tab PO 1,000 mg BID-WM MONI Administration - Exam General Appearance: NAD, awake alert General - other findings: obese Neck: no JVD Heart: RRR, no murmur, no gallops, no rubs Respiratory: CTAB, no wheezes, no rales, no ronchi Gastrointestinal: soft, non-tender, non-distended, normal bowel sounds Extremities: no edema Psychiatric: normal affect, normal behavior, A&O x 3 Hosp A/P - Plan #DKA #T2DM A1c grossly elevated will require subq regimen Elevated alkaline phosphatase GGT, vitamin D Hypertension continue to hold lisinopril Depression Continue Cymbalta Falls Has had recurrent falls Dyspnea likely secondary to hypotension from polyuria due to diabetes mellitus and hyperglycemia. This may be possible syncope We will check orthostatics Fall precautions Monitoring on telemetry. full code VTE prophylaxisLovenox
[2020-03-29 19:41] LABS: Anion Gap 13 mmol/L (10-20); BUN (Urea Nitrogen) 5 mg/dL (8.4-25.7); Calc. Creatinine Clearance 97 mL/min (70-130); Calcium 8.2 mg/dL (7.8-10.44); Carbon Dioxide 21 mmol/L (23-31); Chloride 105 mmol/L (98-107); Estimated GFR-MDRD Greater than 90; Glucose 227 mg/dL (80-115); Potassium 3.6 mmol/L (3.5-5.1); Sodium 135 mmol/L (136-145)
[2020-03-29] MEDS ORDERED: Simvastatin 10 MG TAB PO SCH (21:00)
[2020-03-29] MEDS ORDERED: DULoxetine 60 MG CAP PO SCH (21:00)
[2020-03-29] MEDS ORDERED: Cyclobenzaprine 10 MG TAB PO SCH (21:00)
[2020-03-30 05:04] LABS: Anion Gap 11 mmol/L (10-20); BUN (Urea Nitrogen) 4 mg/dL (8.4-25.7); Calc. Creatinine Clearance 103 mL/min (70-130); Calcium 8.1 mg/dL (7.8-10.44); Carbon Dioxide 22 mmol/L (23-31); Chloride 109 mmol/L (98-107); Estimated GFR-MDRD Greater than 90; Glucose 217 mg/dL (80-115); Magnesium 1.7 mg/dL (1.6-2.6); Potassium 3.7 mmol/L (3.5-5.1); Sodium 138 mmol/L (136-145)
[2020-03-30] MEDS: HumaLOG 300 UNITS/3 ML VIAL SC PRN ×2 (06:26→11:45)
[2020-03-30] MEDS: Sodium Chloride 0.9% 1,000 ML IV SCH (08:38)
[2020-03-30] MEDS: metFORMIN 500 MG TAB PO SCH (08:39)
[2020-03-30] MEDS ORDERED: Insulin Glargine 15 UNITS in Pre-Filled Syringe 1 EACH SC SCH (09:00)
[2020-03-30] MEDS ORDERED: Aspirin 81 mg Enteric Coated Tablet PO SCH (09:00)
[2020-03-30] MEDS ORDERED: Lisinopril 10 MG TAB PO SCH (09:00)
[2020-03-30] MEDS ORDERED: Ergocalciferol 1.25 MG(50,000 UNITS) CAP PO SCH (09:30)
[2020-03-30 12:06] VITALS: BP 176/87; TEMP 97.7
--- NOTE | 2020-03-31 08:06 | DIS ---
DATE OF ADMISSION: 03/28/2020 DATE OF DISCHARGE: 03/30/2020 HOSPITAL COURSE: Mr. Castañeda is a 64-year-old male with medical history of type 2 diabetes, presented for hyperglycemia. He was referred from his primary care physician after he was found to have grossly elevated blood pressure and hyperglycemia in the clinic. He was diagnosed with DKA and was started on IV insulin regimen. His mild anion gap closed promptly. A1c was 11.3, so the patient was discharged on subcu insulin regimen in addition to his metformin. Prior to discharge, the patient was educated regarding management of diabetes and was requested to follow up with his primary care physician within three days in order to follow his blood glucose levels. PHYSICAL EXAMINATION: VITAL SIGNS: Blood pressure 176/87, pulse 108, respiratory rate 20, oxygen saturation 95% on room air, and temperature 97.7. GENERAL: Lying comfortably in bed. Awake and alert, obese. HEENT: Normocephalic and atraumatic. CARDIAC: Regular rate and rhythm. No murmurs, gallops, or rubs. LUNGS: Clear to auscultation bilaterally. No wheezing, rales, or rhonchi. GI: Soft, nontender, and nondistended. Normal bowel sounds. EXTREMITIES: No edema. PSYCHIATRIC: Proper mood and affect. Alert and oriented x3. Of note, the patient was found to have moderate to severe aortic stenosis based on echocardiography. However, there was no indication for surgical intervention based on peak velocity and mean gradient. MEDICATION LIST: New medications: 1. Novolin 70/30, 15 units subcu b.i.d. before breakfast and before dinner. 2. Drisdol 1.25 mg every week for 8 weeks. Continued medications: 1. Duloxetine. 2. Aspirin. 3. Flexeril. 4. Metformin 1000 mg p.o. b.i.d. with meals. 5. Pravastatin. Modified medications: Lisinopril was changed from 20 mg daily to 10 mg daily. Job ID: [id number]
[2020-04-06] MEDS ORDERED: Ergocalciferol 1.25 MG(50,000 UNITS) CAP PO SCH (09:00)
== END 2020-03-30 16:09 | disposition home or self-care (01) ==
LOC: ERS 14:26 → 2SW 17:20
PROVIDERS: ADMIT Student in an Organized Health Care Education/Training Program; ATTEND Student in an Organized Health Care Education/Training Program
DX: E11.10 Type 2 diabetes mellitus with ketoacidosis without coma (principal); E11.65 Type 2 diabetes mellitus with hyperglycemia; I35.0 Nonrheumatic aortic (valve) stenosis; I25.10 Atherosclerotic heart disease of native coronary artery without angina pectoris; I10 Essential (primary) hypertension; F32.9 Major depressive disorder, single episode, unspecified; E78.5 Hyperlipidemia, unspecified; E78.00 Pure hypercholesterolemia, unspecified; Z79.4 Long term (current) use of insulin; Z79.82 Long term (current) use of aspirin; Z79.899 Other long term (current) drug therapy; Z20.828 Contact with and (suspected) exposure to other viral communicable diseases
CPT/HCPCS: 36415; 36416; 70450; 71045; 80048; 80053; 81003; 82010; 82306; 82330; 82803; 82977; 83036; 83735; 84100; 84484; 85025; 87635; 90471; 90732; 93005; 93306; 96360; 96361; 96372; 96374; G0009; G0378; J1650; J1815; J3480; U0003

== ENCOUNTER 2020-08-17 07:31 | Inpatient (IN) | payer OTHER, SELFPAY ==
[2020-08-17] MEDS ORDERED: Morphine 4 MG/ML VIAL ONE (07:58)
[2020-08-17] MEDS ORDERED: Ondansetron PF 4 MG/2 ML Vial ONE (07:58)
--- NOTE | 2020-08-17 08:04 | RAD ---
Portable frontal chest radiograph: 08/17/2020 COMPARISON: 06/21/2020 HISTORY: Chest pain FINDINGS: There is elevation of the left hemidiaphragm. There is increased linear interstitial densit y noted bilaterally, stable. No pneumothorax, focal consolidation, or alveolar edema. IMPRESSION: No significant interval change.
[2020-08-17 08:11] LABS: Mean Corpuscular HGB CONC 32.3 g/dL (32.0-36.0); Mean Corpuscular Hemoglobin 26.5 pg (27.0-31.0); Mean Corpuscular Volume 82.2 fL (78.0-98.0); Mean Platelet Volume 6.7 fL (7.4-10.4); Platelet Count 387 thou/uL (130-400); RBC Distribution Width 14.9 % (11.5-14.5); Red Blood Cell (RBC) Count 4.54 mill/uL (4.70-6.10)
[2020-08-17 08:31] LABS: ALT (SGPT) 15 U/L (8-55); AST (SGOT) 26 U/L (5-34); Albumin 3.6 g/dL (3.4-4.8); Alkaline Phosphatase 160 U/L (40-110); Anion Gap 23 mmol/L (10-20); BUN (Urea Nitrogen) 25 mg/dL (8.4-25.7); Calc. Creatinine Clearance 0 mL/min (70-130); Calcium 10.2 mg/dL (7.8-10.44); Carbon Dioxide 25 mmol/L (23-31); Chloride 95 mmol/L (98-107); Globulin 4.2 g/dL (2.4-3.5); Glucose 385 mg/dL (80-115); Lipase 36 U/L (8-78); Protein, Total 7.8 g/dL (5.8-8.1); Sodium 139 mmol/L (136-145)
[2020-08-17 08:42] LABS: Band 9 % (5-11); Lymphocytes 11 % (21-51); MDiff Complete? YES; Monocytes 9 % (0-10); Neutrophil 70 % (42-75); Platelet Morphology Comment Appears Adequate; Polychromasia SLIGHT = 2-3 cells (100X) (0-2/hpf)
--- NOTE | 2020-08-17 09:44 | CT ---
CT ABDOMEN AND PELVIS WITH IV CONTRAST: INDICATION: Epigastric pain. Hiccups. COMPARISON: No comparison. FINDINGS: Images through the lung bases show mural thickening involving the visualized distal esophagus. Which extends to the EG junction. This should be further evaluated with endoscopy. There is mild distenti on of the distal esophagus as also noted. The stomach is distended and filled with ingested fluid. Consider gastric outlet obstruction. The liver is somewhat small and shows irregular contour suggesting changes of cirrhosis. In addition , there are varicosities seen in the paraesophageal region and in the hepatogastric region. Some mil d splenic varices are also seen. Findings suggest portal hypertension. Spleen is unremarkable and normal size. The pancreas is unremarkable. Adrenal glands are normal. Kidneys unremarkable. Small bowel loops normal caliber. Appendix normal. Colon unremarkable. Aorta normal caliber. Images through the pelvis show mildly distended bladder with mild urinary bladder wall thickening. P rostate unremarkable. Osseous structures unremarkable. IMPRESSION: 1. Mural thickening of the visualized esophagus extending to the esophagogastric junction with mild fluid-filled distention of the distal esophagus. 2. There is also gastric distention with ingested fluid material. Gastric outlet narrowing should b e considered. Recommend gastrointestinal consultation and endoscopy. 3.Evidence of cirrhosis and portal hypertension as described above. 4. Urinary bladder wall thickening. Correlate for cystitis. POS: AGW
[2020-08-17] MEDS ORDERED: Iopamidol-370 76% 500 ML 1 ML ONE (10:04)
[2020-08-17 12:12] LABS: Bilirubin Negative (Negative); Blood, Urine Negative (Negative); Clarity Clear (Clear); Glucose, Urine (Dipstick) Greater than 1000 mg/dL (Negative); Ketone, Urine 40 mg/dL (Negative); Leukocyte Negative Leu/uL (Negative); Nitrite Negative (Negative); Protein, Urine (Dipstick) 20 mg/dL (Neg-Trace); Urobilinogen 3 mg/dL (Less than 2); pH, Urine 8.5 (5.0-9.0)
[2020-08-17 12:14] LABS: Specific Gravity, Urine 1.037 (1.002-1.036)
[2020-08-17] MEDS: Sodium Chloride 0.9% 1,000 ML IV SCH ×4 (13:20→23:24)
[2020-08-17] MEDS: Morphine 2 MG/ML VIAL SLOW IVP PRN (17:55)
--- NOTE | 2020-08-17 18:23 | PDOC.HHP ---
Hospitalist HPI abdominal pain History of Present Illness: This is a 64 year old male with past medical history of type II diabetes, GI disease, cirrhosis, peptic ulcer disease, hyperlipidemia who presented to the ER with abdominal pain x 3 days. The patient states his abdominal pain in is in the epigastric area. THe pain is constant. He was taking motrin to relieve the pain. Initially it worked, but then stopped working. His pain is exacerbated by eating. He denies radiation. His pain is severe, and he states that everytime he would eat, he would throw everything up. He denied fevers, chills, recent travel history. He denies eating anything unusual recently. He reports shortness of breath because of the pain and he hasn't been able to walk for the past few days because of the pain. ED Course: The patient presented to the ER with normal vitals. His heart rate was 130 on arrival. Chest X ray showed no significant change. CT abdomen showed thickening of the esophagus extending to the GE junction with mild fluid filled distension of the distal esophagus. There was also gastric distension. The patient was admitted for further workup. Allergies/Adverse Reactions: Allergy/AdvReac Type Severity Reaction Status Date / Time No Known Allergies Allergy Verified 08/17/20 13:07 Home Medications: Medication Instructions Recorded Confirmed Type DULoxetine [Cymbalta] 60 mg PO HS 07/18/19 08/17/20 History Lisinopril [Prinivil] 10 mg PO DAILY #30 tablet 03/30/20 08/17/20 Rx metFORMIN [Glucophage] 1,000 mg PO BID-WM #60 tab 03/30/20 08/17/20 Rx Celecoxib 200 mg PO DAILY 08/17/20 08/17/20 History HumuLIN 70/30 20 unit SC BID-AC 08/17/20 08/17/20 History Pravastatin Sodium 40 mg PO HS 08/17/20 08/17/20 History Past History: PMHx: Diabetes PSHx: Ulcer surgery in stomach, 90s Left hand, tendons FHx: DM, Heart problems Social: Never smoked or drank. No illicit drugs. ALL NKDA Hospitalist HPI ROS Constitutional: denies: fever, chills Eyes: denies: vision change ENT: denies: ear pain, ear discharge Respiratory: reports: shortness of breath (tires easily). denies: cough Cardiovascular: denies: chest pain, palpitations, orthopnea Gastrointestinal: denies: melena, hematochezia Genitourinary: denies: dysuria, frequency Musculoskeletal: reports: neck pain Skin: denies: rash, lesions, antonio Neurological: denies: weakness, numbness, incoordination Hospitalist Exam Vitals: Vital Signs (12 hours) Temp Pulse Resp BP Pulse Ox 08/17/20 12:50 97.7 F 121 H 16 146/83 H 97 Weight Weight 156 lb 9.6 oz General Appearance: NAD, awake alert Eye: PERRL, anicteric sclera ENT: normocephalic atraumatic Neck: no JVD Heart: RRR, no murmur, no gallops, no rubs Respiratory: CTAB, no wheezes, no rales, no ronchi Gastrointestinal: soft Gastrointestinal - other findings: diminished bowel sounds, abdomen distended. Diffuse mild tenderness Extremities: no cyanosis, no clubbing, no edema Skin: normal turgor, no lesions, no rashes Neurological: cranial nerve grossly intact, normal sensation to touch, no weakness Musculoskeletal: normal tone, normal strength, no muscle wasting Psychiatric: normal affect, normal behavior, A&O x 3, oriented to person Hospitalist Results Result Diagrams: 08/17/20 07:55 08/17/20 07:55 Lab results: Laboratory Last Values WBC 22.0 thou/uL (4.8-10.8) H 08/17/20 07:55 RBC 4.54 mill/uL (4.70-6.10) L 08/17/20 07:55 Hgb 12.0 g/dL (14.0-18.0) L 08/17/20 07:55 Hct 37.3 % (42.0-52.0) L 08/17/20 07:55 MCV 82.2 fL (78.0-98.0) 08/17/20 07:55 MCH 26.5 pg (27.0-31.0) L 08/17/20 07:55 MCHC 32.3 g/dL (32.0-36.0) 08/17/20 07:55 RDW 14.9 % (11.5-14.5) H 08/17/20 07:55 Plt Count 387 thou/uL (130-400) 08/17/20 07:55 MPV 6.7 fL (7.4-10.4) L 08/17/20 07:55 Neutrophils % (Manual) 70 % (42-75) 08/17/20 07:55 Band Neuts % (Manual) 9 % (5-11) 08/17/20 07:55 Lymphocytes % (Manual) 11 % (21-51) L 08/17/20 07:55 Monocytes % (Manual) 9 % (0-10) 08/17/20 07:55 Basophils % (Manual) 1 % (0-2) 08/17/20 07:55 Lymphocytes # Not Reportable 08/17/20 07:55 Plt Morphology Comment Appears Adequate 08/17/20 07:55 Polychromasia SLIGHT = 2-3 cells (100X) (0-2/hpf) 08/17/20 07:55 Sodium 139 mmol/L (136-145) 08/17/20 07:55 Potassium 4.0 mmol/L (3.5-5.1) 08/17/20 07:55 Chloride 95 mmol/L (98-107) L 08/17/20 07:55 Carbon Dioxide 25 mmol/L (23-31) 08/17/20 07:55 Anion Gap 23 mmol/L (10-20) H 08/17/20 07:55 BUN 25 mg/dL (8.4-25.7) 08/17/20 07:55 Creatinine 1.31 mg/dL (0.7-1.3) H 08/17/20 07:55 Estimated GFR (MDRD) 55 08/17/20 07:55 Glucose 385 mg/dL (80-115) H 08/17/20 07:55 POC Glucose 286 mg/dL (70-100) H 08/17/20 15:55 Calcium 10.2 mg/dL (7.8-10.44) 08/17/20 07:55 Total Bilirubin 1.0 mg/dL (0.2-1.2) 08/17/20 07:55 AST 26 U/L (5-34) 08/17/20 07:55 ALT 15 U/L (8-55) 08/17/20 07:55 Alkaline Phosphatase 160 U/L (40-110) H 08/17/20 07:55 Troponin I 0.021 ng/mL (< 0.028) 08/17/20 07:55 Serum Total Protein 7.8 g/dL (5.8-8.1) 08/17/20 07:55 Albumin 3.6 g/dL (3.4-4.8) 08/17/20 07:55 Globulin 4.2 g/dL (2.4-3.5) H 08/17/20 07:55 Albumin/Globulin Ratio 0.9 g/dL (1.2-2.2) L 08/17/20 07:55 Lipase 36 U/L (8-78) 08/17/20 07:55 Urine Color Yellow (Yellow) 08/17/20 11:48 Urine Clarity Clear (Clear) 08/17/20 11:48 Urine pH 8.5 (5.0-9.0) 08/17/20 11:48 Ur Specific [place] 1.037 (1.002-1.036) H 08/17/20 11:48 Urine Protein 20 mg/dL (Neg-Trace) 08/17/20 11:48 Urine Glucose (UA) Greater than 1000 mg/dL (Negative) A 08/17/20 11:48 Urine Ketones 40 mg/dL (Negative) A 08/17/20 11:48 Urine Blood Negative (Negative) 08/17/20 11:48 Urine Nitrite Negative (Negative) 08/17/20 11:48 Urine Bilirubin Negative (Negative) 08/17/20 11:48 Urine Urobilinogen 3 mg/dL (Less than 2) A 08/17/20 11:48 Ur Leukocyte Esterase Negative Danis/uL (Negative) 08/17/20 11:48 Hospitalist H&P A/P Plan: CT abdomen: mural thickening of the esophagus extending to the esophagogastric junction with mild fluid filled distension of the distal esophagus. Gastric distension with ingested fluid material. Cirrhosis and portal hypertension This is a 64 year old male with past medical history of type II diabetes, GI disease, cirrhosis, peptic ulcer disease, hyperlipidemia who presented to the ER with abdominal pain x [address] abdomen which showed gastric outlet obstruction Gastric outlet obstruction - noted on CT abdomen. Will place NG tube. GI was consulted, will see patient - will keep NPO for now - start IV fluids Cirrhosis - noted on CT scan. GI consulted, unclear if patient is aware about this Type II diabetes -fingersticks q6 hours - insulin sliding scale Dispo: admit to inpatient for now. May need endoscopy tomorrow
[2020-08-17] MEDS ORDERED: Dextrose 50% Abboject 50 ML SYRINGE SLOW IVP PRN (18:55)
[2020-08-17] MEDS ORDERED: Dextrose 5% in Water 1,000 ML IV PRN (18:55)
--- NOTE | 2020-08-18 02:18 | CON ---
DATE OF CONSULTATION: 08/17/2020 HISTORY OF PRESENT ILLNESS: The patient is a 64-year-old male, who presented with a 3 to 4 day history of severe epigastric pain, worsened by eating. He has also had nausea, vomiting. It has been going on for several months but it got worse in the last 3 days. He denies any changes in bowel movements, although he has not have been having any bowel movements because he has not been eating. CT showed severe gastric thickening with retained gastric contents and also thickened esophagus. He also has cirrhosis. He reports he was knowing about his cirrhosis in the past and he has drank heavily in the past as a source of his cirrhosis. PAST MEDICAL HISTORY: Includes diabetes mellitus. PAST SURGICAL HISTORY: Includes the stomach. SOCIAL HISTORY: Does not smoke, drank heavily in the past. MEDICATIONS: 1. Cymbalta 60 mg p.o. at bedtime. 2. Lisinopril 10 mg p.o. daily. 3. Metformin 1000 mg p.o. b.i.d. 4. Celecoxib 200 mg p.o. daily. 5. Humulin insulin 20 units subcu b.i.d. 6. Pravastatin 40 mg at bedtime. FAMILY HISTORY: Negative. REVIEW OF SYSTEMS: Noncontributory. PHYSICAL EXAMINATION: VITAL SIGNS: Temperature 97.7, pulse 121, respiratory rate 16, blood pressure 146/83. HEENT: Shows a nasogastric tube. NECK: Supple. CHEST: Clear. CARDIOVASCULAR: Regular rate and rhythm. ABDOMEN: Soft, tender in the epigastric area without rebound or guarding. Bowel sounds are present, normoactive. RECTAL: Deferred. EXTREMITIES: Normal. NEUROLOGIC: Nonfocal. LABORATORY DATA: White blood cell count 22.0, hemoglobin 12.0, hematocrit 37.3, creatinine 1.31, glucose 385, alkaline phosphatase 160. CT of the abdomen and pelvis showed mural thickening of visualized esophagus extending to the GE junction with mild fluid distention of the distal esophagus. There is also gastric distention with ingested fluid material. Gastric outlet narrowing should be considered. Evidence of cirrhosis and portal hypertension, urinary bladder thickening. ASSESSMENT: 1. Epigastric pain. 2. Gastric outlet obstruction by CT scan. 3. Thickened esophagus. 4. Cirrhosis. 5. Diabetes mellitus. RECOMMENDATIONS: 1. PPI. 2. NG. 3. EGD tomorrow. Job ID: [id number]
[2020-08-18] MEDS: Sodium Chloride 0.9% 1,000 ML IV SCH ×3 (05:53→20:34)
[2020-08-18 07:03] LABS: SARS-CoV-2 NAA Rapid Test Not Detected (NotDetected)
--- NOTE | 2020-08-18 08:36 | PDOC.HOSPP ---
- Subjective Encounter Date: 08/18/20 Encounter Time: 08:34 Subjective: F/u: gastric outlet obstruction The patient had NG tube placed overnight. He has had 600 ml drainage overnight. He states it is making his throat scratchy and the tube keeps having to be readjusted His abdominal pain has improved some, but not much. He still has nausea and dry heaved last night. He has had no bowel movement. He is frustrated and hoping to feel better - Objective Vital Signs & Weight: Vital Signs (12 hours) Temp Pulse Resp BP Pulse Ox 08/18/20 07:46 98.7 F 106 H 20 164/83 H 91 L 08/18/20 04:00 98.2 F 105 H 18 135/83 95 08/17/20 23:30 98.3 F 110 H 18 145/80 H 95 Weight Weight 157 lb 7 oz I&O: 08/17/20 08/18/20 08/19/20 06:59 06:59 06:59 Intake Total 1100 Output Total 1125 Balance -25 Result Diagrams: 08/17/20 07:55 08/17/20 07:55 Additional Labs: Accuchecks 08/18/20 08/17/20 08/17/20 04:46 19:44 15:55 POC Glucose 192 H 239 H 286 H Hospitalist ROS - Review of Systems Constitutional: denies: fever, chills - Medication Medications: Active Medications Generic Name Dose Route Start Last Admin Trade Name Freq PRN Reason Stop Dose Admin Sodium Chloride 1,000 mls @ 100 mls/hr 08/17/20 19:00 08/18/20 05:53 Normal Saline 0.9% IV Not Given .Q10H MONI Morphine Sulfate 2 mg 08/17/20 17:39 08/17/20 17:55 Morphine 2 Mg/Ml Vial SLOW IVP 2 mg Q4H PRN Administration Severe Pain (7-10) Hospitalist Exam Vitals: Vital Signs (12 hours) Temp Pulse Resp BP Pulse Ox 08/18/20 07:46 98.7 F 106 H 20 164/83 H 91 L 08/18/20 04:00 98.2 F 105 H 18 135/83 95 08/17/20 23:30 98.3 F 110 H 18 145/80 H 95 Weight Weight 157 lb 7 oz General Appearance: NAD Eye: PERRL, anicteric sclera ENT: normocephalic atraumatic, no oropharyngeal lesions ENT - other findings: NG tube in place with little output Neck: no JVD Heart: RRR, no gallops, no rubs Heart - other findings: systolic murmur left intercostal space Respiratory: CTAB, no wheezes, no rales, no ronchi Gastrointestinal: soft Gastrointestinal - other findings: diffuse mild tenderness Extremities: no cyanosis, no clubbing, no edema Skin: normal turgor, no lesions, no rashes Neurological: cranial nerve grossly intact, normal sensation to touch, no weakness Musculoskeletal: normal tone, normal strength, no muscle wasting Psychiatric: normal affect, normal behavior, A&O x 3 Hosp A/P - Plan CT abdomen: mural thickening of the visualized esophagus extending to the esophagogastric junction with mild fluid filled distension of the distal esophagus. Gastric distension with ingested fluid material. Cirrhosis and portal hypertension This is a 64 year old male with past medical history of type II diabetes, GI disease, cirrhosis, peptic ulcer disease, hyperlipidemia who presented to the ER with abdominal pain x [address] abdomen which showed gastric outlet obstruction Gastric outlet obstruction - noted on CT abdomen. NG tube was placed. GI consulted, plan for EGD today Cirrhosis - noted on CT scan. GI consulted. Patient to get EGD today Systolic murmur - patient has never had an ECHO. Will order Type II diabetes -fingersticks q6 hours - insulin sliding scale
[2020-08-18] MEDS ORDERED: Pantoprazole 40 MG VIAL IVP SCH (10:00)
[2020-08-18] MEDS ORDERED: Sodium Chloride 0.9% (PF) 10 ML VIAL FS PRN (10:00)
--- NOTE | 2020-08-18 10:23 | OP ---
DATE OF PROCEDURE: 08/18/2020 PROCEDURE IN DETAIL: After informed consent was obtained, the patient was placed in the left lateral decubitus position. Anesthesia administered per the Anesthesia Department. Forward-viewing endoscope was inserted into esophagus under direct visualization with ease and passed to the second portion of the duodenum with ease. Second portion of the duodenum was normal. The duodenal bulb was taken up mostly by a large ulcer. The edges of the ulcer cannot be seen, but seems to involve most of the duodenal wall. The pylorus was normal. The endoscope easily the pylorus. There was some clot covering the duodenal ulcer, but no active bleeding. No visible vessel was noted. No blood was seen in the upper GI tract. Biopsies were taken from the antrum for Helicobacter pylori. The antrum, body, fundus, and cardia were normal except full visualization could not be achieved secondary to a large amount of retained gastric contents. The esophagus displayed diffuse grade D reflux esophagitis from 38 to 25 cm. Remainder of the esophagus was normal. ASSESSMENT: 1. Large duodenal bulb ulcer, no active bleeding or visible vessel seen. 2. Retained gastric contents. 3. Grade D reflux esophagitis involving the esophagus from 38 to 25 cm. RECOMMENDATIONS: 1. Continue n.p.o. status and NG suction. 2. Begin IV PPI. 3. Avoid NSAIDs. Job ID: [id number]
[2020-08-18] MEDS ORDERED: Lidocaine 1% PF 5 ML VIAL ONE (11:14)
[2020-08-18] MEDS ORDERED: PROPOFOL 200 MG/20 ML VIAL ONE (11:14)
[2020-08-18 12:28] LABS: Hemoglobin 10.3 g/dL (14.0-18.0); Mean Corpuscular HGB CONC 31.9 g/dL (32.0-36.0); Mean Corpuscular Hemoglobin 26.9 pg (27.0-31.0); Mean Corpuscular Volume 84.4 fL (78.0-98.0); Mean Platelet Volume 6.6 fL (7.4-10.4); Platelet Count 232 thou/uL (130-400); RBC Distribution Width 14.9 % (11.5-14.5); Red Blood Cell (RBC) Count 3.82 mill/uL (4.70-6.10); White Blood Cell (WBC) Count 23.9 thou/uL (4.8-10.8)
[2020-08-18 12:51] LABS: ALT (SGPT) 11 U/L (8-55); AST (SGOT) 18 U/L (5-34); Albumin 2.9 g/dL (3.4-4.8); Alkaline Phosphatase 114 U/L (40-110); Anion Gap 14 mmol/L (10-20); BUN (Urea Nitrogen) 21 mg/dL (8.4-25.7); Bilirubin, Total 0.8 mg/dL (0.2-1.2); Calc. Creatinine Clearance 91 mL/min (70-130); Calcium 7.7 mg/dL (7.8-10.44); Carbon Dioxide 25 mmol/L (23-31); Chloride 105 mmol/L (98-107); Globulin 3.6 g/dL (2.4-3.5); Glucose 224 mg/dL (80-115); Potassium 4.3 mmol/L (3.5-5.1); Protein, Total 6.5 g/dL (5.8-8.1); Sodium 140 mmol/L (136-145)
[2020-08-18] MEDS ORDERED: FLU VACC QS2020-21(6MOS UP)/PF 60 MCG/0.5 ML SYRINGE IM ONE (14:30)
[2020-08-18] MEDS: Pantoprazole 40 MG VIAL IVP SCH (20:37)
[2020-08-19] MEDS: Sodium Chloride 0.9% 1,000 ML IV SCH ×2 (05:47→17:41)
[2020-08-19] MEDS: Pantoprazole 40 MG VIAL IVP SCH ×2 (08:36→21:17)
--- NOTE | 2020-08-19 13:56 | PRG ---
DATE OF SERVICE: 08/19/2020 SUBJECTIVE: The patient is doing well without complaints. He is getting hungry. His epigastric pain is mostly relieved. OBJECTIVE: VITAL SIGNS: Temperature 98.6, pulse 98, respiratory rate 20, blood pressure 149/84. CHEST: Clear. CARDIOVASCULAR: Regular rate and rhythm. ABDOMEN: Soft, nontender without organomegaly or masses. LABORATORY DATA: Shows a hemoglobin of 10.3 yesterday. Chemistries today shows a glucose of 164. ASSESSMENT: 1. Duodenal ulcer. 2. Partial gastric outlet obstruction secondary to duodenal ulcer. 3. Grade D reflux esophagitis. RECOMMENDATIONS: 1. Discontinue NG tube. 2. Trial clear liquids. 3. Continue proton pump inhibitor. Job ID: [id number]
--- NOTE | 2020-08-19 14:33 | PDOC.HOSPP ---
- Objective Vital Signs & Weight: Vital Signs (12 hours) Temp Pulse Resp BP Pulse Ox 08/19/20 08:00 94 L 08/19/20 07:00 98.6 F 98 20 149/84 H 94 L 08/19/20 05:52 98.1 F 100 18 162/81 H 92 L Weight Admit Weight 157 lb 7 oz Weight 158 lb 8 oz I&O: 08/18/20 08/19/20 08/20/20 06:59 06:59 06:59 Intake Total 1100 1100 Output Total 1125 850 650 Balance -25 250 -650 Result Diagrams: 08/18/20 12:10 08/18/20 12:10 Additional Labs: Accuchecks 08/19/20 08/19/20 08/18/20 11:36 04:30 20:03 POC Glucose 164 H 161 H 186 H 08/18/20 15:56 POC Glucose 182 H Hospitalist ROS - Medication Medications: Active Medications Generic Name Dose Route Start Last Admin Trade Name Freq PRN Reason Stop Dose Admin Sodium Chloride 1,000 mls @ 100 mls/hr 08/17/20 19:00 08/19/20 05:47 Normal Saline 0.9% IV 1,000 mls .Q10H MONI Administration Morphine Sulfate 2 mg 08/17/20 17:39 08/17/20 17:55 Morphine 2 Mg/Ml Vial SLOW IVP 2 mg Q4H PRN Administration Severe Pain (7-10) Pantoprazole Sodium 40 mg 08/18/20 21:00 08/19/20 08:36 Pantoprazole 40 Mg Vial IVP 40 mg Q12HR MONI Administration Sodium Chloride 10 ml 08/18/20 10:00 08/18/20 20:37 Sodium Chloride 0.9% (Pf) 10 Ml Vial FS 10 ml PRN PRN Administration RECONSTITUTION Hospitalist Exam Vitals: Vital Signs (12 hours) Temp Pulse Resp BP Pulse Ox 08/19/20 08:00 94 L 08/19/20 07:00 98.6 F 98 20 149/84 H 94 L 08/19/20 05:52 98.1 F 100 18 162/81 H 92 L Weight Admit Weight 157 lb 7 oz Weight 158 lb 8 oz Hosp A/P - Plan 64 year old male with past medical history of type II diabetes, GI disease, cirrhosis, peptic ulcer disease, hyperlipidemia who presented to the ER with abdominal pain x [address] abdomen which showed gastric outlet obstruction Gastric outlet obstruction secondary to duodenal ulcer - noted on CT abdomen. Status post NG tube -Status post EGD which showed duodenal ulcer and partial gastric outlet obstruction secondary to duodenal ulcer -Esophagitis -PPI Cirrhosis - noted on CT scan. Systolic murmur -Echo showed 55% EF normal LV function and diastolic dysfunction. Moderate aortic stenosis and mild mitral regurgitation Type II diabetes -fingersticks q6 hours - insulin sliding scale Clear liquid diet
[2020-08-19] MEDS: HumaLOG 300 UNITS/3 ML VIAL SC PRN (17:40)
[2020-08-20] MEDS: Sodium Chloride 0.9% 1,000 ML IV SCH ×2 (08:35→17:08)
[2020-08-20] MEDS: Pantoprazole 40 MG VIAL IVP SCH ×2 (08:35→19:11)
--- NOTE | 2020-08-20 08:58 | PRG ---
DATE OF SERVICE: 08/20/2020 SUBJECTIVE: The patient is feeling good. He tolerated clear liquids without any nausea or vomiting. He has had no bowel movements. He did have an episode of sweats last night, but feels better today. OBJECTIVE: VITAL SIGNS: Temperature 97.8, pulse 86, respiratory rate 18, and blood pressure 155/85. CHEST: Clear. CARDIOVASCULAR: Regular rate and rhythm. ABDOMEN: Benign, slightly tender, but no rebound or guarding. LABORATORY DATA: Shows a glucose 157. ASSESSMENT: 1. Large duodenal ulcer with partial gastric outlet obstruction-improved. 2. Grade D reflux esophagitis secondary to #1. 3. Night sweats. RECOMMENDATIONS: 1. Advance diet to a diabetic diet. 2. Continue proton pump inhibitor. 3. Repeat CBC in the morning. 4. Stable for discharge tomorrow morning if remains stable. Job ID: [id number]
[2020-08-20 11:48] LABS: #Basophils 0.1 thou/uL (0.0-0.2); #Eosinphils 0.6 thou/uL (0.0-0.7); #Lymphocytes 2.6 thou/uL (1.20-3.40); #Monocytes 1.1 thou/uL (0.11-0.59); #Neutrophils 6.6 thou/uL (1.40-6.50); %Neutrophils 59.9 % (42.0-75.0); Hemoglobin 10.5 g/dL (14.0-18.0); Mean Corpuscular HGB CONC 31.8 g/dL (32.0-36.0); Mean Corpuscular Hemoglobin 26.3 pg (27.0-31.0); Mean Corpuscular Volume 82.8 fL (78.0-98.0); Mean Platelet Volume 6.4 fL (7.4-10.4); Platelet Count 251 thou/uL (130-400); RBC Distribution Width 14.7 % (11.5-14.5); Red Blood Cell (RBC) Count 3.99 mill/uL (4.70-6.10)
[2020-08-20] MEDS: HumaLOG 300 UNITS/3 ML VIAL SC PRN ×3 (12:04→19:11)
--- NOTE | 2020-08-20 14:23 | PDOC.HOSPP ---
- Subjective Encounter Date: 08/20/20 Encounter Time: 09:45 Subjective: Patient seen this morning he is very happy without NG tube. He is tolerating his diabetic diet. He wants to take a shower. - Objective Vital Signs & Weight: Vital Signs (12 hours) Temp Pulse Resp BP Pulse Ox 08/20/20 12:47 98.1 F 84 18 148/71 H 97 08/20/20 08:54 98.3 F 86 18 166/87 H 97 08/20/20 08:00 97 08/20/20 05:28 97.8 F 86 18 155/85 H 97 Weight Admit Weight 157 lb 7 oz Weight 159 lb 1.6 oz I&O: 08/19/20 08/20/20 08/21/20 06:59 06:59 06:59 Intake Total 1100 480 Output Total 850 1550 Balance 250 -1070 Result Diagrams: 08/20/20 11:26 08/18/20 12:10 Additional Labs: Accuchecks 08/20/20 08/20/20 08/19/20 11:12 04:15 19:24 POC Glucose 215 H 157 H 209 H 08/19/20 16:34 POC Glucose 200 H Hospitalist ROS - Medication Medications: Active Medications Generic Name Dose Route Start Last Admin Trade Name Freq PRN Reason Stop Dose Admin Sodium Chloride 1,000 mls @ 100 mls/hr 08/17/20 19:00 08/20/20 08:35 Normal Saline 0.9% IV 1,000 mls .Q10H MONI Administration Insulin Human Lispro 0 units 08/17/20 18:55 08/20/20 12:04 Humalog 300 Units/3 Ml Vial SC 3 unit .MILD SLIDING SCALE PRN Administration Mild Correctional Scale Morphine Sulfate 2 mg 08/17/20 17:39 08/17/20 17:55 Morphine 2 Mg/Ml Vial SLOW IVP 2 mg Q4H PRN Administration Severe Pain (7-10) Pantoprazole Sodium 40 mg 08/18/20 21:00 08/20/20 08:35 Pantoprazole 40 Mg Vial IVP 40 mg Q12HR MONI Administration Sodium Chloride 10 ml 08/18/20 10:00 08/18/20 20:37 Sodium Chloride 0.9% (Pf) 10 Ml Vial FS 10 ml PRN PRN Administration RECONSTITUTION Hospitalist Exam Vitals: Vital Signs (12 hours) Temp Pulse Resp BP Pulse Ox 08/20/20 12:47 98.1 F 84 18 148/71 H 97 08/20/20 08:54 98.3 F 86 18 166/87 H 97 08/20/20 08:00 97 08/20/20 05:28 97.8 F 86 18 155/85 H 97 Weight Admit Weight 157 lb 7 oz Weight 159 lb 1.6 oz General Appearance: NAD, awake alert Eye: PERRL ENT: normocephalic atraumatic Neck: supple Heart: RRR, normal peripheral pulses Respiratory: CTAB, normal chest expansion Gastrointestinal: soft, normal bowel sounds Neurological: cranial nerve grossly intact, no focal deficits Psychiatric: normal affect, normal behavior, A&O x 3 Hosp A/P - Plan 64 year old male with past medical history of type II diabetes, GI disease, cirrhosis, peptic ulcer disease, hyperlipidemia who presented to the ER with abdominal pain x [address] abdomen which showed gastric outlet obstruction Gastric outlet obstruction secondary to duodenal ulcer - noted on CT abdomen. Status post NG tube -Status post EGD which showed duodenal ulcer and partial gastric outlet obstruction secondary to duodenal ulcer -Esophagitis -PPI Cirrhosis - noted on CT scan. Systolic murmur -Echo showed 55% EF normal LV function and diastolic dysfunction. Moderate aortic stenosis and mild mitral regurgitation Type II diabetes -fingersticks q6 hours - insulin sliding scale Diabetic diet
[2020-08-21] MEDS: Sodium Chloride 0.9% 1,000 ML IV SCH (01:00)
[2020-08-21] MEDS: Morphine 2 MG/ML VIAL SLOW IVP PRN (05:27)
[2020-08-21 07:06] VITALS: BP 150/78; TEMP 98.8
[2020-08-21] MEDS: Pantoprazole 40 MG VIAL IVP SCH (07:41)
[2020-08-21 08:28] LABS: #Basophils 0.1 thou/uL (0.0-0.2); #Eosinphils 0.7 thou/uL (0.0-0.7); #Lymphocytes 3.2 thou/uL (1.20-3.40); #Monocytes 1.6 thou/uL (0.11-0.59); %Basophils 0.6 % (0.0-1.0); %Eosinophils 4.3 % (0.0-10.0); %Lymphocytes 19.1 % (21.0-51.0); %Monocytes 9.4 % (0.0-10.0); %Neutrophils 66.7 % (42.0-75.0); Hemoglobin 9.8 g/dL (14.0-18.0); Mean Corpuscular HGB CONC 31.8 g/dL (32.0-36.0); Mean Corpuscular Hemoglobin 26.1 pg (27.0-31.0); Mean Corpuscular Volume 82.1 fL (78.0-98.0); Mean Platelet Volume 6.4 fL (7.4-10.4); Platelet Count 247 thou/uL (130-400); Red Blood Cell (RBC) Count 3.75 mill/uL (4.70-6.10); White Blood Cell (WBC) Count 16.5 thou/uL (4.8-10.8)
[2020-08-21] MEDS ORDERED: Acetaminophen 325 MG TAB PO PRN (09:48)
[2020-08-21 11:27] VITALS: BMI 31.0
--- NOTE | 2020-08-21 13:38 | PDOC.DS.DS ---
Provider Date of Admission: 08/17/20 18:51 Admitting Provider: Luz Elena Badillo MD Primary Care Physician: [facility] Course Hospital Course: 64 year old male with past medical history of type II diabetes, GI disease, cirrhosis, peptic ulcer disease, hyperlipidemia who presented to the ER with abdominal pain x [address] abdomen which showed gastric outlet obstruction Gastric outlet obstruction secondary to duodenal ulcer -perCT abdomen. Status post NG tube -Status post EGD which showed duodenal ulcer and partial gastric outlet obstruction secondary to duodenal ulcer -Esophagitis -PPI Cirrhosis - noted on CT scan. Systolic murmur -Echo showed 55% EF normal LV function and diastolic dysfunction. Moderate aortic stenosis and mild mitral regurgitation Type II diabetes -fingersticks q6 hours - insulin sliding scale Diabetic diet He says that he has chronic headache on the right side. He says he is on disability and may be on Medicare as well but he is not sure. I recommended that he follows with outpatient neurology if he has ongoing persistent headache. Nothing clinically acute to do immediate work-up as an inpatient. Patient tolerated his diabetic diet. Cleared by GI. Discharged with PPI twice a day for 1 month and then once daily. Expected to follow-up with primary care physician in 1 week. Discharge time over 30 minutes. Lab Results: 08/21/20 07:33 08/18/20 12:10 Abnormal Lab Results - Last 48 hrs 08/20/20 11:26: WBC 11.0 H, RBC 3.99 L, Hgb 10.5 L, Hct 33.0 L, MCH 26.3 L, MCHC 31.8 L, RDW 14.7 H, MPV 6.4 L, Neutrophils # 6.6 H, Monocytes # 1.1 H 08/21/20 07:33: WBC 16.5 H, RBC 3.75 L, Hgb 9.8 L, Hct 30.8 L, MCH 26.1 L, MCHC 31.8 L, RDW 15.0 H, MPV 6.4 L, Lymphocytes % 19.1 L, Neutrophils # 11.0 H, Monocytes # 1.6 H Vitals: Vital Signs (12 hours) Temp Pulse Resp BP Pulse Ox 08/21/20 08:00 97 08/21/20 07:03 98.8 F 87 16 150/78 H 97 Weight Admit Weight 157 lb 7 oz Weight 159 lb 1.6 oz Physical Exam: The patient was seen and examined on the day of discharge. Patient appears well. He says that he has chronic headache on the right side. He says he is on disability and may be on Medicare as well but he is not sure. I recommended that he follows with outpatient neurology if he has ongoing persistent headache. Nothing clinically acute to do immediate work-up as an inpatient. General Appearance: NAD, awake alert Eye: PERRL ENT: normocephalic atraumatic Neck: supple Respiratory: CTAB, normal chest expansion Cardiovascular: RRR, normal peripheral pulses Gastrointestinal: soft, normal bowel sounds Plan Prescriptions: Lisinopril [Prinivil] 20 mg PO DAILY 30 Days #30 tablet Pantoprazole Sodium [Protonix] 40 mg PO BID 30 Days #60 granpkt. [place] Medications: Medication Instructions Recorded Confirmed Type DULoxetine [Cymbalta] 60 mg PO HS 07/18/19 08/17/20 History metFORMIN [Glucophage] 1,000 mg PO BID-WM #60 tab 03/30/20 08/17/20 Rx HumuLIN 70/30 [HumuLIN 70/30 Vial] 20 unit SC BID-AC 08/17/20 08/17/20 History Pravastatin Sodium 40 mg PO HS 08/17/20 08/17/20 History Lisinopril [Prinivil] 20 mg PO DAILY 30 Days #30 tablet 08/21/20 Rx Pantoprazole Sodium [Protonix] 40 mg PO BID 30 Days #60 granpkt. 08/21/20 Rx Allergies: No Known Allergies Allergy (Verified 08/17/20 13:07) Discharge Instructions:: FOLLOW UP WITH PCP 1 WEEK YOUR PRESCRIPTIONS WERE SENT TO: [facility] [address] [place] [id number] Activity:: Activity as Tolerated Nourishment:: Diabetic Diet Referrals: [facility] [Primary Care Provider] - Jm Ramos MD [Active] - Disposition: HOME Quality CORE MEASURES:: N/A
[2020-08-21] MEDS ORDERED: Lisinopril 20 MG TAB PO SCH (21:00)
--- NOTE | 2020-08-23 13:23 | EKG ---
Test Reason : Blood Pressure : / mmHG Vent. Rate : 116 BPM Atrial Rate : 116 BPM P-R Int : 160 ms QRS Dur : 084 ms QT Int : 362 ms P-R-T Axes : 056 052 089 degrees QTc Int : 503 ms Sinus tachycardia Possible Left atrial enlargement Left ventricular hypertrophy Cannot rule out Septal infarct , age undetermined Abnormal ECG Confirmed by IDANIA WHALEN ([id number]), photographic editor EPI GARCIA ([id number]) on 08/23/2020 1:22:55 PM Referred By: Confirmed By:IDANIA Kan
== END 2020-08-21 14:27 | disposition home or self-care (01) | DRG 384 ==
LOC: ERS 07:31 → T4-A 12:48 → OBSVTOIN 18:51
PROVIDERS: ADMIT Internal Medicine; ATTEND Internal Medicine
PROC: 0DB68ZX Excision of Stomach, Via Natural or Artificial Opening Endoscopic, Diagnostic (ICD-10-PCS; principal; 2020-08-18)
DX: K26.9 Duodenal ulcer, unspecified as acute or chronic, without hemorrhage or perforation (principal); K31.1 Adult hypertrophic pyloric stenosis; E11.9 Type 2 diabetes mellitus without complications; E78.5 Hyperlipidemia, unspecified; K74.60 Unspecified cirrhosis of liver; R01.1 Cardiac murmur, unspecified; K21.00 Gastro-esophageal reflux disease with esophagitis, without bleeding; I35.0 Nonrheumatic aortic (valve) stenosis; I34.0 Nonrheumatic mitral (valve) insufficiency; Z20.822 Contact with and (suspected) exposure to COVID-19
CPT/HCPCS: 36415; 36416; 71045; 74177; 80053; 81003; 83690; 84484; 85025; 85027; 87635; 88305; 88312; 93005; 93306; 96374; 96375; 96376; C9113; G0378; J2270; J2405; J2704; Q9967; U0002; U0003; U0005

== ENCOUNTER 2020-08-28 12:27 | Inpatient (IN) | payer MEDICARE, SELFPAY ==
[2020-08-28 15:41] LABS: Bacteria/HPF None Seen HPF (None Seen); Bilirubin Negative (Negative); Blood, Urine 1+ (Negative); Clarity Clear (Clear); Glucose, Urine (Dipstick) Greater than 1000 mg/dL (Negative); Ketone, Urine Negative (Negative); Leukocyte Negative Leu/uL (Negative); Nitrite Negative (Negative); Protein, Urine (Dipstick) 10 mg/dL (Neg-Trace); Specific Gravity, Urine 1.009 (1.002-1.036); Squamous Epithelial None Seen HPF (0-3); Urobilinogen Normal mg/dL (Less than 2); pH, Urine 6.5 (5.0-9.0)
[2020-08-28 16:17] LABS: SARS-CoV-2 NAA Rapid Test Not Detected (NotDetected)
[2020-08-28 16:23] LABS: Amphetamine Not Detected (NotDetected); Barbiturates Screen Not Detected (NotDetected); Benzodiazepine Screen Not Detected (NotDetected); Cocaine Metabolite Screen Not Detected (NotDetected); Medtox Control Line Valid? VALID (VALID); Medtox Reader # READER 4; Methadone Not Detected (NotDetected); Methamphetamine Not Detected (NotDetected); Opiate Screen Not Detected (NotDetected); Oxycodone Screen Not Detected (NotDetected); Phencyclidine (PCP) Not Detected (NotDetected); THC/Cannabinoid Screen Not Detected (NotDetected); Tricyclic Screen Not Detected (NotDetected)
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
[2020-08-28 17:11] VITALS: BMI 28.6
[2020-08-28] MEDS ORDERED: Lorazepam 2 MG/ML VIAL SLOW IVP PRN ×2 (17:13→17:55)
--- NOTE | 2020-08-28 17:27 | CT ---
HEAD CT WITHOUT CONTRAST: Date: 08/28/2020 COMPARISON: None. HISTORY: Stroke protocol, left-sided weakness with left-sided neglect. TECHNIQUE: Axial CT imaging at 2.5 mm intervals from vertex through skull base without contrast. Coronal and sag ittal reformatted imaging obtained. FINDINGS: The visualized paranasal sinuses and mastoid air cells are well aerated. There is no displaced calvar ial fracture, intracranial hemorrhage, midline shift, or mass effect. IMPRESSION: No intracranial hemorrhage. Results called to Dr. Francois at 1:00 p.m. on 08/28/2020. CODE CR. POS: [facility]
[2020-08-28] MEDS ORDERED: Ondansetron ODT 4 MG TAB SL PRN (17:30)
[2020-08-28] MEDS ORDERED: Sodium Chloride 0.9% 1,000 ML IV SCH (17:30)
[2020-08-28] MEDS ORDERED: Ondansetron PF 4 MG/2 ML Vial IVP PRN ×2 (17:30→17:52)
[2020-08-28] MEDS ORDERED: Acetaminophen 650 MG Suppository PR PRN (17:52)
[2020-08-28] MEDS ORDERED: Senokot S 8.6-50 MG TAB PO PRN (17:52)
[2020-08-28] MEDS ORDERED: Ondansetron ODT 4 MG TAB PO PRN (17:52)
[2020-08-28] MEDS ORDERED: Guaifenesin DM 100-10/5 ML UDCUP PO PRN (17:52)
[2020-08-28] MEDS ORDERED: Dextrose 5% in Water 1,000 ML IV PRN (18:35)
[2020-08-28] MEDS ORDERED: Dextrose 50% Abboject 50 ML SYRINGE SLOW IVP PRN (18:35)
[2020-08-28] MEDS ORDERED: Thiamine HCl 200 MG/2 ML VIAL IM SCH (18:45)
[2020-08-28 18:57] LABS: ALT (SGPT) 17 U/L (8-55); AST (SGOT) 86 U/L (5-34); Albumin 3.1 g/dL (3.4-4.8); Alkaline Phosphatase 111 U/L (40-110); Anion Gap 20 mmol/L (10-20); BUN (Urea Nitrogen) 5 mg/dL (8.4-25.7); Bilirubin, Total 0.5 mg/dL (0.2-1.2); Calc. Creatinine Clearance 82 mL/min (70-130); Calcium 7.9 mg/dL (7.8-10.44); Carbon Dioxide 16 mmol/L (23-31); Chloride 104 mmol/L (98-107); Glucose 228 mg/dL (80-115); Potassium 6.1 mmol/L (3.5-5.1); Protein, Total 8.1 g/dL (5.8-8.1); Sodium 134 mmol/L (136-145); Troponin I Less than 0.010 ng/mL (< 0.028)
[2020-08-28 20:27] LABS: #Basophils 0.2 thou/uL (0.0-0.2); #Eosinphils 0.8 thou/uL (0.0-0.7); #Lymphocytes 4.5 thou/uL (1.20-3.40); #Monocytes 1.5 thou/uL (0.11-0.59); #Neutrophils 6.5 thou/uL (1.40-6.50); %Basophils 1.3 % (0.0-1.0); %Eosinophils 5.8 % (0.0-10.0); %Lymphocytes 33.4 % (21.0-51.0); %Monocytes 11.4 % (0.0-10.0); %Neutrophils 48.1 % (42.0-75.0); Hemoglobin 10.7 g/dL (14.0-18.0); Mean Corpuscular HGB CONC 31.2 g/dL (32.0-36.0); Mean Corpuscular Hemoglobin 25.8 pg (27.0-31.0); Mean Corpuscular Volume 82.6 fL (78.0-98.0); Mean Platelet Volume 8.2 fL (7.4-10.4); Platelet Count 257 thou/uL (130-400); RBC Distribution Width 16.1 % (11.5-14.5); Red Blood Cell (RBC) Count 4.14 mill/uL (4.70-6.10); White Blood Cell (WBC) Count 13.5 thou/uL (4.8-10.8)
[2020-08-28 20:29] LABS: INR-International Normal Ratio 1.2; PTT 29.5 sec (22.9-36.1); Prothrombin Time 15.1 sec (12.0-14.7)
[2020-08-28] MEDS: Sodium Chloride 0.9% 1,000 ML IV SCH (20:37)
[2020-08-28] MEDS: Pantoprazole 40 MG VIAL IVP SCH (20:38)
[2020-08-28 20:49] LABS: Acetaminophen Less than 6.0 mcg/mL (10.0-30.0); Alcohol Less than 10 mg/dL (Less than 10); Salicylate Less than 8.0 mg/dL (15.0-30.0)
[2020-08-29 04:07] LABS: #Basophils 0.1 thou/uL (0.0-0.2); #Eosinphils 0.2 thou/uL (0.0-0.7); #Lymphocytes 3.4 thou/uL (1.20-3.40); #Monocytes 1.6 thou/uL (0.11-0.59); #Neutrophils 9.9 thou/uL (1.40-6.50); %Basophils 0.5 % (0.0-1.0); %Eosinophils 1.2 % (0.0-10.0); %Lymphocytes 22.3 % (21.0-51.0); %Monocytes 10.4 % (0.0-10.0); %Neutrophils 65.6 % (42.0-75.0); Hemoglobin 9.4 g/dL (14.0-18.0); Mean Corpuscular HGB CONC 32.4 g/dL (32.0-36.0); Mean Corpuscular Hemoglobin 27.3 pg (27.0-31.0); Mean Corpuscular Volume 84.3 fL (78.0-98.0); Mean Platelet Volume 6.8 fL (7.4-10.4); Platelet Count 213 thou/uL (130-400); RBC Distribution Width 15.1 % (11.5-14.5); Red Blood Cell (RBC) Count 3.45 mill/uL (4.70-6.10); White Blood Cell (WBC) Count 15.1 thou/uL (4.8-10.8)
[2020-08-29 04:32] LABS: ALT (SGPT) 12 U/L (8-55); AST (SGOT) 27 U/L (5-34); Albumin 2.7 g/dL (3.4-4.8); Alkaline Phosphatase 104 U/L (40-110); Anion Gap 11 mmol/L (10-20); BUN (Urea Nitrogen) 6 mg/dL (8.4-25.7); Bilirubin, Total 0.4 mg/dL (0.2-1.2); Calc. Creatinine Clearance 101 mL/min (70-130); Calcium 7.4 mg/dL (7.8-10.44); Carbon Dioxide 24 mmol/L (23-31); Chloride 107 mmol/L (98-107); Globulin 3.4 g/dL (2.4-3.5); Glucose 150 mg/dL (80-115); Protein, Total 6.1 g/dL (5.8-8.1); Sodium 138 mmol/L (136-145)
[2020-08-29] MEDS ORDERED: Labetalol HCl 100 MG/20 ML VIAL SLOW IVP PRN (07:37)
[2020-08-29] MEDS ORDERED: hydrALAZINE 20 MG/ML VIAL SLOW IVP PRN (07:37)
--- NOTE | 2020-08-29 08:06 | PDOC.HOSPP ---
- Subjective Encounter Date: 08/29/20 Encounter Time: 11:00 Subjective: Patient much more alert today. He is now moving both sides of his body and talking coherently. Currently getting his EEG and then MRI will be done after that. Patient reports continued mild left posterior headache. No other complaints. - Objective Vital Signs & Weight: Vital Signs (12 hours) Temp Pulse Resp BP Pulse Ox 08/29/20 05:28 97 18 123/63 99 08/29/20 04:00 99 F 88 18 143/84 H 96 08/29/20 02:00 99 20 111/59 L 96 08/29/20 00:00 98.1 F 94 18 114/56 L 96 08/28/20 22:29 98 08/28/20 22:00 101 H 18 137/79 99 Weight Weight 156 lb 8 oz Result Diagrams: 08/29/20 03:36 08/29/20 03:36 Additional Labs: Accuchecks 08/29/20 08/28/20 05:19 21:06 POC Glucose 129 H 174 H Hospitalist ROS - Review of Systems Constitutional: denies: fever, chills Respiratory: denies: cough, shortness of breath Cardiovascular: denies: chest pain, palpitations Gastrointestinal: denies: nausea, vomiting, abdominal pain - Medication Medications: Active Medications Generic Name Dose Route Start Last Admin Trade Name Freq PRN Reason Stop Dose Admin Sodium Chloride 1,000 mls @ 100 mls/hr 08/28/20 18:00 08/28/20 20:37 Normal Saline 0.9% IV 1,000 mls .Q10H MONI Administration Pantoprazole Sodium 40 mg 08/28/20 21:00 08/28/20 20:38 Pantoprazole 40 Mg Vial IVP 40 mg Q12HR MONI Administration Hospitalist Exam Vitals: Vital Signs (12 hours) Temp Pulse Resp BP Pulse Ox 08/29/20 05:28 97 18 123/63 99 08/29/20 04:00 99 F 88 18 143/84 H 96 08/29/20 02:00 99 20 111/59 L 96 08/29/20 00:00 98.1 F 94 18 114/56 L 96 08/28/20 22:29 98 08/28/20 22:00 101 H 18 137/79 99 Weight Weight 156 lb 8 oz General Appearance: NAD, awake alert ENT: moist mucosa Heart: RRR, no murmur, no gallops, no rubs Respiratory: CTAB, no wheezes, no rales, no ronchi Gastrointestinal: soft, non-tender, non-distended, normal bowel sounds Neurological: cranial nerve grossly intact, no focal deficits Psychiatric: normal affect, normal behavior Hosp A/P - Plan Acute ischemic strokesymptoms resolved this morning We will check MRI of the brain Rectal aspirin We will get neurology consultation Stroke team consultation New onset seizures Continue Keppra IV twice a day As needed Ativan Patient on ASE protocol in case of alcohol withdrawals, though niece denies him having any recent alcohol. Acute metabolic encephalopathy Likely related to patient's recent seizure along with Ativan in the setting of liver cirrhosis We will check MRI Hyperammonemia resolved this morning. Can give rectal lactulose if needed, but stable for now. Neurology consult Markedly improved this morning Alcoholic cirrhosis of the liver No evidence for acute decompensation at this time We will need to be careful about using too large doses of benzodiazepines. We will also avoid Valium or other long-acting that require hepatic breakdown. Diabetes mellitus type 2 We will do fingerstick blood sugars every 4 hours with low insulin sliding scale Diabetic diet once he starts eating Large duodenal ulcer with gastric outlet obstruction We will continue IV PPI twice a day No history of recurrent symptoms when he presented to the emergency room We will observe closely for signs of any persistent gastric outlet obstruction Essential hypertension We will resume home medications once he is taking p.o. We will give as needed IV labetalol and hydralazine DVT prophylaxis: SCDs, hold Lovenox for now with large duodenal ulcer GI prophylaxis: Continue PPI CODE STATUS: Patient is a full code. His medical decision makers would be his sons. I spoke with his son Dmitry Castañeda yesterday at [phone]. I also spoke with patient's niece Cinthya Benavides at [phone] as she and her daughter are living with him. I plan to update patient's son once we have results from the MRI.
[2020-08-29] MEDS ORDERED: FLU VACC QS2020-21(6MOS UP)/PF 60 MCG/0.5 ML SYRINGE IM ONE (09:00)
[2020-08-29] MEDS: Thiamine 100 MG TAB PO SCH (11:20)
[2020-08-29] MEDS: Magnesium Oxide 400 MG TAB PO SCH (11:20)
[2020-08-29] MEDS: Aspirin 300 MG Suppository PR SCH (11:20)
[2020-08-29] MEDS: Folic Acid 1 MG TAB PO SCH (11:21)
[2020-08-29] MEDS: Sodium Chloride 0.9% 1,000 ML IV SCH (11:23)
[2020-08-29] MEDS: levETIRAcetam in NS 1,000 MG in Premix Bag 1 BAG IVPB SCH ×2 (12:29→21:37)
[2020-08-29] MEDS: Pantoprazole 40 MG VIAL IVP SCH ×2 (12:30→21:37)
[2020-08-29] MEDS: Multivitamin W/ Minerals 1 TAB PO SCH (12:30)
--- NOTE | 2020-08-29 15:37 | CON ---
NEUROLOGY CONSULTATION DATE OF CONSULTATION: 08/29/2020 REASON FOR CONSULTATION: Seizures. HISTORY OF PRESENT ILLNESS: Mr. Cedric Castañeda Junior is a 64-year-old male with medical history significant for diabetes mellitus, hypertension, alcoholic cirrhosis of the liver, chronic neck pain, presented to the emergency room with left-sided weakness and seizure. The patient is not a good historian, so history is obtained from review of the medical records. According to the medical records, the patient's niece gave the history and explained that he woke up in the morning with a bad headache and neck pain, which he has been complaining for several months, but this time, it became worse. He took ibuprofen and then the electricity went out around 3 a.m. in the morning, so the house was cold, he built the fire and brought the dogs in front of it and she realized that his left arm suddenly started shaking and then he became still and not moving for a few minutes, so she asked the patient if he was okay, but he seems to be confused, so she was worried that he may be having a seizure, so she decided to call the EMS and bring him to the hospital for further evaluation. On arrival to the house, the EMS noted that his gaze was deviated to the right and he was weak on the left upper and lower extremities, but able to follow commands on the right upper and lower extremities. Per patient's daughter, he did not have alcohol for some time since he has been staying with her. The daughter denies any fever, nausea, vomiting, chest pain, abdominal pain, recent illness, or recent exposure to COVID-19. After arrival to the emergency room, the patient had another generalized tonic-clonic seizure, which resolved with Ativan. He was loaded with Keppra and admitted for further management. REVIEW OF SYSTEMS: Unobtainable due to the patient's mental status. ALLERGIES: NO KNOWN DRUG ALLERGIES. PAST MEDICAL HISTORY: Diabetes mellitus type 2, hypertension, alcoholic cirrhosis of the liver, recently diagnosed duodenal ulcer with gastric outlet obstruction, chronic neck pain. PAST SURGICAL HISTORY: Tendon repair to left hand after deep laceration, ulcer surgery of the stomach in the . FAMILY HISTORY: Diabetes, coronary artery disease. SOCIAL HISTORY: The patient denies smoking, alcohol, or illegal drug use. He does have a past history of heavy alcohol abuse, but recently stopped after going to custodial. Home Medications: Medication Instructions Recorded Confirmed Type DULoxetine [Cymbalta] 60 mg PO HS 07/18/19 08/17/20 History metFORMIN [Glucophage] 1,000 mg PO BID-WM #60 tab 03/30/20 08/17/20 Rx HumuLIN 70/30 [HumuLIN 70/30 Vial] 20 unit SC BID-AC 08/17/20 08/17/20 History Pravastatin Sodium 40 mg PO HS 08/17/20 08/17/20 History Pantoprazole Sodium [Protonix] 40 mg PO BID 30 Days #60 08/21/20 Rx Lisinopril [Prinivil] 20 mg PO DAILY 08/28/20 08/28/20 History Vital Signs & Weight: Vital Signs (12 hours) Temp Pulse Resp BP Pulse Ox 08/29/20 05:28 97 18 123/63 99 08/29/20 04:00 99 F 88 18 143/84 H 96 08/29/20 02:00 99 20 111/59 L 96 08/29/20 00:00 98.1 F 94 18 114/56 L 96 08/28/20 22:29 98 08/28/20 22:00 101 H 18 137/79 99 Weight Weight 156 lb 8 oz Additional Labs: Accuchecks 08/29/20 08/28/20 05:19 21:06 POC Glucose 129 H 174 H Active Medications Generic Name Dose Route Start Last Admin Trade Name Freq PRN Reason Stop Dose Admin Sodium Chloride 1,000 mls @ 100 mls/hr 08/28/20 18:00 08/28/20 20:37 Normal Saline 0.9% IV 1,000 mls .Q10H MONI Administration Pantoprazole Sodium 40 mg 08/28/20 21:00 08/28/20 20:38 Pantoprazole 40 Mg Vial IVP 40 mg Q12HR MONI Administration PHYSICAL EXAMINATION: General - Awake and alert x 2 Eye: anicteric sclera Eye - other findings: Pupils 3 mm bilaterally, sluggish but reactive ENT: normocephalic atraumatic, no oropharyngeal lesions, moist mucosa Neck: supple, symmetric, no JVD, no thyromegaly, no lymphadenopathy Heart: RRR, no murmur, no gallops, no rubs, normal peripheral pulses Respiratory: CTAB, no wheezes, no rales, no ronchi, normal chest expansion, no tachypnea Gastrointestinal: soft, non-tender, non-distended, normal bowel sounds, no palpable masses Extremities: no cyanosis, no clubbing, no edema Skin: normal turgor, no lesions, no rashes Neurological - other findings: Mental status; the patient is alert and oriented to person and place, but not to time or year. Cranial nerves 2 through 12 intact. Motor, muscle tone and bulk are normal. Moving all 4 extremities equally and symmetrically. Sensory intact. Cerebellar, finger-nose testing intact. Gait deferred due to the patient's safety reason. DIAGNOSTIC STUDIES: Data reviewed. I reviewed the labs, in which the patient does have elevated ammonia level. CT scan did not reveal acute intracranial pathology. EKG showed sinus tachycardia. Laboratory Last Values Urine Color Light-Yellow (Yellow) 08/28/20 Unknown Urine Clarity Clear (Clear) 08/28/20 Unknown Urine pH 6.5 (5.0-9.0) 08/28/20 Unknown Ur Specific [place] 1.009 (1.002-1.036) 08/28/20 Unknown Urine Protein 10 mg/dL (Neg-Trace) 08/28/20 Unknown Urine Glucose (UA) Greater than 1000 mg/dL (Negative) A 08/28/20 Unknown Urine Ketones Negative mg/dL (Negative) 08/28/20 Unknown Urine Blood 1+ (Negative) A 08/28/20 Unknown Urine Nitrite Negative (Negative) 08/28/20 Unknown Urine Bilirubin Negative (Negative) 08/28/20 Unknown Urine Urobilinogen Normal mg/dL (Less than 2) 08/28/20 Unknown Ur Leukocyte Esterase Negative Danis/uL (Negative) 08/28/20 Unknown Urine RBC 4-6 HPF (0-3) A 08/28/20 Unknown Urine WBC 4-6 HPF (0-3) A 08/28/20 Unknown Ur Squamous Epith Cells None Seen HPF (0-3) 08/28/20 Unknown Urine Bacteria None Seen HPF (None Seen) 08/28/20 Unknown Hyaline Casts 0-3 LPF (0-3) 08/28/20 Unknown Urine Opiates Screen Not Detected (NotDetected) 08/28/20 Unknown Ur Oxycodone Screen Not Detected (NotDetected) 08/28/20 Unknown Urine Methadone Screen Not Detected (NotDetected) 08/28/20 Unknown Ur Propoxyphene Screen Not Detected (NotDetected) 08/28/20 Unknown Ur Barbiturates Screen Not Detected (NotDetected) 08/28/20 Unknown Ur Tricyclics Screen Not Detected (NotDetected) 08/28/20 Unknown Ur Phencyclidine Scrn Not Detected (NotDetected) 08/28/20 Unknown Ur Amphetamines Screen Not Detected (NotDetected) 08/28/20 Unknown U Methamphetamines Scrn Not Detected (NotDetected) 08/28/20 Unknown U Benzodiazepines Scrn Not Detected (NotDetected) 08/28/20 Unknown U Cocaine Metab Screen Not Detected (NotDetected) 08/28/20 Unknown U Cannabinoids Screen Not Detected (NotDetected) 08/28/20 Unknown Drug Screen Comment () 08/28/20 Unknown Influenza A RNA INAAT Not Detected (NotDetected) 08/28/20 15:21 Influenza B RNA INAAT Not Detected (NotDetected) 08/28/20 15:21 SARS-CoV-2 Rap RNA(RT-PCR) Not Detected (NotDetected) 08/28/20 15:21 Blood Type O POSITIVE 08/28/20 12:54 Antibody Screen NEGATIVE 08/28/20 12:54 ASSESSMENT AND PLAN: Mr. Cedric Castañeda is a 64-year-old male, who was consulted for new-onset seizures x2. Per the patient, he does have remote history of seizures, but not sure they were related to alcohol withdrawal. EEG reviewed, which showed right temporal sharps. Agree with starting Keppra 1000 mg p.o. b.i.d. Continue Keppra at the current dose. Observe seizure precautions. Ativan 2 mg IV for seizure greater than 2 minutes. Continue home medications. MRI of the brain to evaluate for seizure focus. Continue medical management per primary team. We will continue to follow. Thank you for the consult. Job ID: [id number] MTDD
--- NOTE | 2020-08-29 15:54 | PDOC.EEG ---
Neurology EEG Report - Report Report: This EEG was performed using 24 channel Qriket video digital EEG machine with 24 disc electrodes. This was an extended 2 hours 5 minutes of inpatient video EEG recording. Digital analysis of the EEG was done for Amado and seizure detection which revealed no abnormalities. Background: There is a nonsustained posterior background rhythm not observed Hyperventilation: . Not performed Photic stimulation: No significant response Sleep: Drowsiness and sleep are observed EEG diagnosis: Intermittent irregular theta activity intermixed with rare sharps in the right temporal region Absence of posterior background rhythm Clinical interpretation: This EEG is consistent with interictal expression of partial epilepsy with potential epileptogenicity in the right temporal region in the setting of moderate generalized nonspecific cerebral dysfunction.
--- NOTE | 2020-08-29 16:20 | MRI ---
MRI BRAIN WITHOUT CONTRAST: Date: 08/29/2020 HISTORY: Left-sided weakness and left-sided neglect. FINDINGS: There is restricted diffusion involving the cortex of the posteromedial aspect of the left temporopar ietal lobe with hypointensity on ADC maps. No hemorrhage, midline shift, or abnormal extra-axial flui d collections are seen. There is a focal area of T2 hyperintensity in the right centrum semiovale wit h shine-through on the diffusion-weighted images and ADC maps. A few foci of T2 prolongation in the p eriventricular white matter are likely due to chronic small vessel ischemic disease. The ventricular size is appropriate and the basilar cisterns are patent. IMPRESSION: Acute left posteromedial temporoparietal infarction. POS: ADALA
[2020-08-29] MEDS: HumaLOG 300 UNITS/3 ML VIAL SC PRN ×2 (18:29→21:38)
[2020-08-30] MEDS: Acetaminophen 325 MG TAB PO PRN ×3 (05:37→20:25)
[2020-08-30] MEDS: levETIRAcetam in NS 1,000 MG in Premix Bag 1 BAG IVPB SCH ×2 (08:31→20:27)
[2020-08-30] MEDS: Sodium Chloride 0.9% 1,000 ML IV SCH ×3 (08:31→17:48)
[2020-08-30] MEDS: Magnesium Oxide 400 MG TAB PO SCH (08:35)
[2020-08-30] MEDS: Folic Acid 1 MG TAB PO SCH (08:35)
[2020-08-30] MEDS: Thiamine 100 MG TAB PO SCH (08:35)
[2020-08-30] MEDS: Pantoprazole 40 MG VIAL IVP SCH ×2 (08:35→20:27)
[2020-08-30] MEDS: Multivitamin W/ Minerals 1 TAB PO SCH (08:36)
[2020-08-30] MEDS: Aspirin 300 MG Suppository PR SCH (11:03)
--- NOTE | 2020-08-30 11:29 | PDOC.HOSPP ---
- Subjective Encounter Date: 08/30/20 Encounter Time: 13:00 Subjective: Patient spiked a fever of 102 this morning. No more seizure activity. Patient is still confused, oriented to person and occasionally to place, but not to year. Occasionally he can give his year as well but not always. He is moving both sides of his body now. He just got back from a lumbar puncture due to the fever. Has also had culture sent. - Objective Vital Signs & Weight: Vital Signs (12 hours) Temp Pulse Resp BP Pulse Ox 08/30/20 11:02 102.5 F H 08/30/20 10:30 102.5 F H 114 H 18 143/72 H 98 08/30/20 08:30 97 08/30/20 08:00 100.2 F H 100 18 129/74 97 08/30/20 05:39 119 H 16 149/78 H 94 L 08/30/20 05:37 100.2 F H 119 H 16 08/30/20 03:35 100.2 F H 104 H 18 112/63 93 L 08/30/20 02:00 97 18 137/78 93 L 08/30/20 00:00 100.2 F H 104 H 18 112/63 93 L 08/29/20 23:57 100.1 F H 102 H 20 143/84 H 95 Weight Admit Weight 156 lb 8 oz Weight 156 lb 8 oz I&O: 08/29/20 08/30/20 08/31/20 06:59 06:59 06:59 Output Total 200 Balance -200 Result Diagrams: 08/29/20 03:36 08/29/20 03:36 Additional Labs: Accuchecks 08/30/20 08/29/20 08/29/20 05:48 20:21 17:19 POC Glucose 148 H 236 H 179 H 08/29/20 11:06 POC Glucose 150 H Hospitalist ROS - Review of Systems ROS unobtainable: due to mental status - Medication Medications: Active Medications Generic Name Dose Route Start Last Admin Trade Name Freq PRN Reason Stop Dose Admin Acetaminophen 650 mg 08/28/20 17:52 08/30/20 11:02 Acetaminophen 325 Mg Tab PO 650 mg Q4H PRN Administration Headache/Fever/Mild Pain (1-3) Aspirin 300 mg 08/29/20 09:00 08/30/20 11:03 Aspirin 300 Mg Suppository MO 300 mg DAILY MONI Administration Folic Acid 1 mg 08/29/20 09:00 08/30/20 08:35 Folic Acid 1 Mg Tab PO 1 mg DAILY MONI Administration Sodium Chloride 1,000 mls @ 100 mls/hr 08/28/20 18:00 08/30/20 10:36 Normal Saline 0.9% IV Not Given .Q10H MONI Levetiracetam 1,000 mg/ Device 100 mls @ 200 mls/hr 08/29/20 09:00 08/30/20 08:31 IVPB 100 mls BID MONI Administration Insulin Human Lispro 0 units 08/28/20 18:35 08/29/20 18:29 Humalog 300 Units/3 Ml Vial SC 2 unit .MILD SLIDING SCALE PRN Administration Mild Correctional Scale Insulin Human Lispro 0 units 08/28/20 18:35 08/29/20 21:38 Humalog 300 Units/3 Ml Vial SC 2 unit .BEDTIME SLIDING SC PRN Administration Bedtime Correctional Scale Iron/Minerals/Multivitamins 1 tab 08/29/20 09:00 08/30/20 08:36 Multivitamin W/ Minerals 1 Tab PO 1 tab DAILY MONI Administration Magnesium Oxide 400 mg 08/29/20 09:00 08/30/20 08:35 Magnesium Oxide 400 Mg Tab PO 400 mg DAILY MONI Administration Pantoprazole Sodium 40 mg 08/28/20 21:00 08/30/20 08:35 Pantoprazole 40 Mg Vial IVP 40 mg Q12HR MONI Administration Sodium Chloride 10 ml 08/29/20 09:00 08/30/20 08:31 Flush - Normal Saline 10 Ml Syringe IVF 10 ml Q12HR MONI Administration Thiamine HCl 100 mg 08/29/20 09:00 08/30/20 08:35 Thiamine 100 Mg Tab PO 100 mg DAILY MONI Administration Hospitalist Exam Vitals: Vital Signs (12 hours) Temp Pulse Resp BP Pulse Ox 08/30/20 11:02 102.5 F H 08/30/20 10:30 102.5 F H 114 H 18 143/72 H 98 08/30/20 08:30 97 08/30/20 08:00 100.2 F H 100 18 129/74 97 08/30/20 05:39 119 H 16 149/78 H 94 L 08/30/20 05:37 100.2 F H 119 H 16 08/30/20 03:35 100.2 F H 104 H 18 112/63 93 L 08/30/20 02:00 97 18 137/78 93 L 08/30/20 00:00 100.2 F H 104 H 18 112/63 93 L 08/29/20 23:57 100.1 F H 102 H 20 143/84 H 95 Weight Admit Weight 156 lb 8 oz Weight 156 lb 8 oz General Appearance: NAD, awake alert ENT: moist mucosa Heart: RRR, no murmur, no gallops, no rubs Respiratory: CTAB, no wheezes, no rales, no ronchi Gastrointestinal: soft, non-tender, non-distended, normal bowel sounds Extremities: no edema Neurological - other findings: Moving bilateral upper and lower extremities, no facial droop Psychiatric: normal affect, normal behavior, oriented to person, oriented to place (Sometimes). negative: oriented to time Hosp A/P - Plan Sepsis Fever spike to 102 and leukocytosis Check blood culture, urine culture, chest x-ray (negative for infection), and lumbar puncture for culture and HSV. We will consult Dr. Mann with infectious disease for recommendations on antibiotics and antiviral medications. For now we will start cefepime, ampicillin, and vancomycin. Acute ischemic strokesymptoms resolved Acute stroke in left temporoparietal region on MRI brain not consistent with location of symptoms Rectal aspirin Appreciate allergy assistance Stroke team consultation New onset seizures Continue Keppra IV twice a day As needed Ativan Patient on ASE protocol in case of alcohol withdrawals, though niece denies him having any recent alcohol. EEG with right-sided temporal lobe spikes consistent with symptoms that have been seen on the left. On Keppra. Concern for possibility of HSV though inflammation not seen on MRI. Acute metabolic encephalopathy Likely related to patient's recent seizure along with Ativan in the setting of liver cirrhosis See MRI results Hyperammonemia resolved this morning. Can give rectal lactulose if needed, but stable for now. Neurology consulted Markedly improved Alcoholic cirrhosis of the liver No evidence for acute decompensation at this time We will need to be careful about using too large doses of benzodiazepines. We will also avoid Valium or other long-acting that require hepatic breakdown. Diabetes mellitus type 2 We will do fingerstick blood sugars every 4 hours with low insulin sliding scale Diabetic diet Resume home metformin. Not needing his home insulin at this time. Large duodenal ulcer with gastric outlet obstruction We will continue IV PPI twice a day, can likely back off to once a day soon No history of recurrent symptoms when he presented to the emergency room We will observe closely for signs of any persistent gastric outlet obstruction Essential hypertension Resume home lisinopril. We will give as needed IV labetalol and hydralazine DVT prophylaxis: SCDs, hold Lovenox for now with large duodenal ulcer GI prophylaxis: Continue PPI CODE STATUS: Patient is a full code. His medical decision makers would be his sons. I spoke with his son Dmitry Castañeda this morning at [phone] and told him about the fever and the plan for work-up. I did tell him to expect a phone call from the radiologist getting consent for the lumbar puncture. I also spoke with patient's niece Cinthya Benavides at [phone] as she and her daughter are living with him. MRI BRAIN WITHOUT CONTRAST: Date: 08/29/2020 HISTORY: Left-sided weakness and left-sided neglect. FINDINGS: There is restricted diffusion involving the cortex of the posteromedial aspect of the left temporoparietal lobe with hypointensity on ADC maps. No hemorrhage, midline shift, or abnormal extra-axial fluid collections are seen. There is a focal area of T2 hyperintensity in the right centrum semiovale with shine-through on the diffusion-weighted images and ADC maps. A few foci of T2 prolongation in the periventricular white matter are likely due to chronic small vessel ischemic disease. The ventricular size is appropriate and the basilar cisterns are patent. IMPRESSION: Acute left posteromedial temporoparietal infarction.
[2020-08-30] MEDS: HumaLOG 300 UNITS/3 ML VIAL SC PRN ×3 (11:33→20:42)
--- NOTE | 2020-08-30 11:45 | PDOC.BPN ---
- Brief Progress Note Patient had right temporal spikes on EEG which explains his initial presentation and is consistent with the semiology of seizures. MRI Brain showed left temporoparietal infarct which does not explain his symptoms. Consider Stroke work - up Start aspirin and high statin for secondary stroke prevention. Overnight , patient had spiked a fever of 102. Consider LP and ID consult for further recommendations. Suspicion for HSV due to right temporal seizures. Continue Keppra for seizure prophylaxis. Ativan 2 mg IV for seizure greater than 2 minutes. Continue medical management per primary team. Plan discussed with the primary attending Dr. Stafford via phone.
--- NOTE | 2020-08-30 12:03 | RAD ---
Portable frontal chest radiograph: 08/30/2020 COMPARISON: 08/17/2020 HISTORY: Fever, possible pneumonia FINDINGS: Mild increased linear interstitial density is noted, stable. Heart and mediastinal contours are unchanged. No pneumothorax, pleural fluid, lobar consolidation, or alveolar edema. Impression: No acute findings.
--- NOTE | 2020-08-30 13:15 | RAD ---
Lumbar puncture with fluoroscopic guidance: 08/30/2020 COMPARISON: None HISTORY: Clinical concern for meningitis, fever, elevated white blood cell count FINDINGS: Informed consent obtained prior to the procedure. [employer] imaging demonstrates mild lower lum bar spine facet hypertrophy and multilevel mild lumbar spine disc space narrowing. The patient was placed in the oblique prone position on the fluoroscopic table and skin overlying the L4 level was anesthetized with 1% buffered lidocaine. With intermittent fluoroscopic guidance, a 22-gauge spinal needle is advanced into the thecal sac at the L4 level and removal of the stylet yiel ds clear cerebrospinal fluid. Opening pressure is normal, approximately 10-11 cm of water. Approximately 7-8 cc of clear CSF was obtained and sent to the laboratory for assessment. The patient tolerated the procedure well. IMPRESSION: Successful lumbar puncture with fluoroscopic guidance.
[2020-08-30] MEDS ORDERED: Cefepime 2 GM in Sodium Chloride 0.9% 100 ML IVPB SCH (14:00)
[2020-08-30 14:23] LABS: CSF, Glucose 109 mg/dl (40-70); CSF, Protein 34 mg/dL (15-40)
[2020-08-30 14:40] LABS: CSF Source CSF; Clarity Clear (Clear); Tube # 4
[2020-08-30 14:41] LABS: Bacteria/HPF None Seen HPF (None Seen); Bilirubin Negative (Negative); Blood, Urine Negative (Negative); Clarity Turbid (Clear); Glucose, Urine (Dipstick) Greater than 1000 mg/dL (Negative); Ketone, Urine 10 mg/dL (Negative); Leukocyte Negative Leu/uL (Negative); Nitrite 2+ (Negative); Protein, Urine (Dipstick) Negative (Neg-Trace); RBC/HPF 0-3 HPF (0-3); Specific Gravity, Urine 1.023 (1.002-1.036); Squamous Epithelial 0-3 HPF (0-3)
[2020-08-30] MEDS ORDERED: Ampicillin 2 GM in Sodium Chloride 0.9% 100 ML IVPB SCH (15:00)
[2020-08-30] MEDS ORDERED: Vancomycin 1 GM in Premix Bag 1 BAG IVPB SCH (16:00)
--- NOTE | 2020-08-30 16:36 | CON ---
DATE OF CONSULTATION: 08/30/2020 REASON FOR CONSULTATION: Fever, CVA, seizure activity. HISTORY OF PRESENT ILLNESS: A 64-year-old who apparently had a TIA at the end of 1998, treated elsewhere. He also has a history of type 2 diabetes and hypertension. He was admitted in 07/2019 with chest pain and he also had abdominal ultrasound, which indicated cirrhosis of the liver. In 03/2020, he presented with hyperglycemia and elevation in blood pressure. He was diagnosed with DKA and was given IV insulin, and finally on 08/21/2020, he presented with abdominal pain for [address] of abdomen showed gastric outlet obstruction. An EGD was done, showed duodenal ulcer, partial gastric outlet obstruction secondary to duodenal ulcer and a positive H pylori test. At this time, the patient presents with right leg weakness and pain, left side weakness, confusional state, altered mental status, and gaze deviation to the right, both eyes, and so stroke activation was initiated since the time. Last seen normal was greater than [address] did not show any intracerebral hemorrhage, so he was felt not to be a tPA candidate due to time of onset of symptoms outside the window. His initial findings included a BP 110/85, pulse 130, temperature 97.8, and O2 saturation 100. He appeared confused, although he was responsive to verbal stimuli, but could not answer questions. The initial exam showed normal neck, lung, and heart findings. He was unable to ambulate. In the emergency room note, it is stated that there were no focal motor deficits. The patient had a brain CT, which did not show any hemorrhage. The brain MRI which demonstrated an acute left posterior medial temporoparietal infarction with restricted diffusion involving the cortex of the posterior medial aspect of the left temporoparietal lobe and hypointensity on the ADC maps, has also evidence of chronic small-vessel ischemic changes. He had a spinal tap today and basically the CSF showed 5 nucleated cells, protein was normal, glucose 109. Currently, Mr. Castañeda is awake and alert, he is oriented, follows commands. He does not have any headaches. He had some neck pain intermittently. No respiratory symptoms. No abdominal pain except for the very lower abdomen, which is mild and intermittent. No genitourinary symptoms. No diarrhea. No bleeding. No joint symptoms. He has weakness in the left upper extremity and some dysmetria. PAST MEDICAL HISTORY: 1. TIA in 1998 reportedly. 2. Type 2 diabetes. 3. Hypertension. 4. Alcoholism. 5. Coronary artery disease. 6. Myocardial infarction. 7. GERD. 8. H pylori associated ulcer with gastric outlet obstruction due to it. 9. Hyperlipidemia. 10. History of depression. SURGICAL HISTORY: EGD. SOCIAL HISTORY: Used to suffer from alcoholism, he is abstinent now for 70 years. Lives alone. from his . He has been in senior care before. ALLERGIES: NONE. MEDICATION LIST: At the moment, he is receivin. Ampicillin. 2. Cefepime. 3. Duloxetine. 4. Glucagon. 5. Insulin. 6. Keppra. 7. Lisinopril. 8. Thiamine. 9. Vancomycin. PHYSICAL EXAMINATION: VITAL SIGNS: On the , his temp went up to 100.1 and then 100.2 and 102.5 on 08/30 and now he is 98.7. He is saturating 93 to 95 on room air. HEENT: His ocular movements are conjugate. Pupils are equal. Oral cavity normal still quite a few teeth in place with moderate decay. SKIN: Normal. No lymphadenopathy. NECK: No jugular vein distention. LUNGS: Clear to auscultation and percussion. HEART: There is a soft murmur at the left and right parasternal border, is kind soft and ejection type, best heard in the right side of the parasternal border. S2 is normal. No S3. Regular rate. ABDOMEN: Soft, not distended or tender. No ascites. No bladder distention. EXTREMITIES: No joint inflammatory activity. No edema. Pulses are 1+ in dorsalis pedis. Plantar responses are flexor. Strength in lower extremities appears to be preserved. NEUROLOGIC: He is awake, oriented, and follows commands. Good recollection of events. LABORATORY DATA: The other findings are white cell count 15,000, hemoglobin 9.4, and platelets 213 with a normal differential. INR 1.2. Creatinine now is 0.76. Liver profile normal. Albumin 2.7. SARS-CoV-2 is not detected. ASSESSMENT: 1. Type 2 diabetes. 2. Prior transient ischemic attack many years ago. 3. History of alcoholism, in remission. 4. Coronary artery disease. 5. Acute cerebrovascular accident in the left temporoparietal region, more than 24 hours before admission, did not receive tPA because of that seems to be improving somewhat. He is not confused anymore and then developed fever the 2nd day after admission. DISCUSSION: The differential diagnosis includes fever secondary to aspiration pneumonia or an alternate inflammatory process due to infectious versus noninfectious causes of CVA associated fever. Typically noninfectious CVA associated fever usually happens in larger CVAs than smaller ones. Usually fever after CVA early on is not associated with infection in general. There was a concern with a meningitis, but I think that has been ruled out effectively. We will go ahead and check for other infectious disease associated with CVA, such as syphilis, HIV, and we will submit SARS-CoV-2 antibodies to complete the workup. In view of his history of cirrhosis, we will check his hepatitis C as well. I do not think he needs antimicrobial therapy at this point in time. Job ID: [id number] MTDD
[2020-08-30] MEDS: metFORMIN 500 MG TAB PO SCH (17:15)
[2020-08-30 17:50] LABS: Syphilis Antibody Nonreactive (Nonreactive); Syphilis Antibody Index 0.09 S/CO (<1.00 Non-Reactive)
[2020-08-30 17:51] LABS: HIV (1/2) Antibody/Antigen Non-Reactive (NonReactive); HIV 1/2 INDEX 0.43 S/CO (<1.00); Hep C IgG Ab Non-Reactive (NonReactive); Hep C Index 0.14 S/CO (0-0.79)
[2020-08-30] MEDS: DULoxetine 60 MG CAP PO SCH (20:25)
[2020-08-30] MEDS ORDERED: Atorvastatin Calcium 10 MG TAB PO SCH (21:00)
[2020-08-30] MEDS ORDERED: Nitroglycerin 0.4 MG TAB (25 Tab Bottle) SL PRN (22:31)
[2020-08-30] MEDS ORDERED: Lidocaine 2% Viscous Solution 10 ML, Aluminum & Magnesium Hydroxide 30 ML SSW SCH (23:30)
[2020-08-31] MEDS ORDERED: Magnesium 2 GM/50 ML 2 GM in Premix Bag 1 BAG IVPB SCH (02:00)
[2020-08-31] MEDS ORDERED: ALPRAZolam 0.25 MG TAB PO SCH (02:00)
[2020-08-31 02:05] LABS: #Lymphocytes 1.8 thou/uL (1.20-3.40); #Monocytes 1.2 thou/uL (0.11-0.59); #Neutrophils 8.9 thou/uL (1.40-6.50); %Basophils 0.3 % (0.0-1.0); %Eosinophils 0.3 % (0.0-10.0); %Lymphocytes 15.2 % (21.0-51.0); %Neutrophils 74.2 % (42.0-75.0); Mean Corpuscular HGB CONC 32.4 g/dL (32.0-36.0); Mean Corpuscular Hemoglobin 25.9 pg (27.0-31.0); Platelet Count 197 thou/uL (130-400); RBC Distribution Width 15.2 % (11.5-14.5); Red Blood Cell (RBC) Count 3.47 mill/uL (4.70-6.10)
[2020-08-31 02:34] LABS: Anion Gap 12 mmol/L (10-20); BUN (Urea Nitrogen) 7 mg/dL (8.4-25.7); Calc. Creatinine Clearance 101 mL/min (70-130); Calcium 7.8 mg/dL (7.8-10.44); Carbon Dioxide 20 mmol/L (23-31); Chloride 109 mmol/L (98-107); Glucose 174 mg/dL (80-115); Potassium 3.7 mmol/L (3.5-5.1); Sodium 137 mmol/L (136-145)
[2020-08-31] MEDS: Sodium Chloride 0.9% 1,000 ML IV SCH (03:00)
[2020-08-31 05:15] LABS: ALT (SGPT) 11 U/L (8-55); AST (SGOT) 24 U/L (5-34); Albumin 2.6 g/dL (3.4-4.8); Alkaline Phosphatase 90 U/L (40-110); Bilirubin, Direct 0.4 mg/dL (0.1-0.3); Bilirubin, Total 0.7 mg/dL (0.2-1.2); Magnesium 2.2 mg/dL (1.6-2.6); Protein, Total 5.9 g/dL (5.8-8.1)
[2020-08-31] MEDS: metFORMIN 500 MG TAB PO SCH ×2 (07:45→16:28)
[2020-08-31] MEDS: levETIRAcetam in NS 1,000 MG in Premix Bag 1 BAG IVPB SCH (09:45)
[2020-08-31] MEDS: Lisinopril 20 MG TAB PO SCH (09:46)
[2020-08-31] MEDS: Pantoprazole 40 MG VIAL IVP SCH (09:46)
[2020-08-31] MEDS: Folic Acid 1 MG TAB PO SCH (09:46)
[2020-08-31] MEDS: Magnesium Oxide 400 MG TAB PO SCH (09:46)
[2020-08-31] MEDS: Multivitamin W/ Minerals 1 TAB PO SCH (09:46)
[2020-08-31] MEDS: Lidocaine 5% Patch TD SCH (09:46)
[2020-08-31] MEDS: Thiamine 100 MG TAB PO SCH (09:46)
[2020-08-31] MEDS: Aspirin 300 MG Suppository PR SCH (10:23)
[2020-08-31] MEDS ORDERED: Aspirin 325 MG TAB PO SCH (10:30)
[2020-08-31] MEDS: HumaLOG 300 UNITS/3 ML VIAL SC PRN ×2 (12:07→16:34)
--- NOTE | 2020-08-31 17:34 | PDOC.HOSPP ---
- Subjective Encounter Date: 08/31/20 Subjective: She reports she feels very well. Denies any specific complaints. Nurses have noted that he is "pleasantly confused". - Objective Vital Signs & Weight: Vital Signs (12 hours) Temp Pulse Resp BP BP BP BP 08/31/20 16:00 98.6 F 93 19 151/87 H 08/31/20 15:00 151/87 H 08/31/20 14:05 134/85 117/76 08/31/20 14:00 103 H 18 117/76 08/31/20 11:58 99.1 F 89 16 149/86 H 08/31/20 11:00 149/86 H 08/31/20 09:55 95 20 147/81 H 08/31/20 09:46 124/73 08/31/20 08:00 08/31/20 07:44 98.4 F 88 16 124/73 08/31/20 07:00 124/73 Pulse Ox 08/31/20 16:00 97 08/31/20 15:00 08/31/20 14:05 08/31/20 14:00 100 08/31/20 11:58 99 08/31/20 11:00 08/31/20 09:55 98 08/31/20 09:46 08/31/20 08:00 100 08/31/20 07:44 100 08/31/20 07:00 Weight Admit Weight 156 lb 8 oz Weight 156 lb 8 oz I&O: 08/30/20 08/31/20 09/01/20 06:59 06:59 06:59 Intake Total 3501 800 Output Total 1250 Balance 2251 800 Result Diagrams: 08/31/20 01:49 08/31/20 01:49 Additional Labs: Accuchecks 08/31/20 08/31/20 08/31/20 16:33 11:11 06:03 POC Glucose 182 H 181 H 130 H 08/30/20 08/30/20 21:20 20:40 POC Glucose 212 H 205 H Hospitalist ROS - Medication Medications: Active Medications Generic Name Dose Route Start Last Admin Trade Name Freq PRN Reason Stop Dose Admin Acetaminophen 650 mg 08/28/20 17:52 08/30/20 20:25 Acetaminophen 325 Mg Tab PO 650 mg Q4H PRN Administration Headache/Fever/Mild Pain (1-3) Atorvastatin Calcium 10 mg 08/30/20 21:00 08/30/20 20:25 Atorvastatin Calcium 10 Mg Tab PO 10 mg HS MONI Administration Duloxetine HCl 60 mg 08/30/20 21:00 08/30/20 20:25 Duloxetine 60 Mg Cap PO 60 mg HS MONI Administration Folic Acid 1 mg 08/29/20 09:00 08/31/20 09:46 Folic Acid 1 Mg Tab PO 1 mg DAILY MONI Administration Insulin Human Lispro 0 units 08/28/20 18:35 08/31/20 16:34 Humalog 300 Units/3 Ml Vial SC 2 unit .MILD SLIDING SCALE PRN Administration Mild Correctional Scale Insulin Human Lispro 0 units 08/28/20 18:35 08/30/20 20:42 Humalog 300 Units/3 Ml Vial SC 2 unit .BEDTIME SLIDING SC PRN Administration Bedtime Correctional Scale Iron/Minerals/Multivitamins 1 tab 08/29/20 09:00 08/31/20 09:46 Multivitamin W/ Minerals 1 Tab PO 1 tab DAILY MONI Administration Lidocaine 1 patch 08/31/20 09:00 08/31/20 09:46 Lidocaine 5% Patch TD 1 patch DAILY MONI Administration Lisinopril 20 mg 08/31/20 09:00 08/31/20 09:46 Lisinopril 20 Mg Tab PO 20 mg DAILY MONI Administration Magnesium Oxide 400 mg 08/29/20 09:00 08/31/20 09:46 Magnesium Oxide 400 Mg Tab PO 400 mg DAILY MONI Administration Metformin HCl 1,000 mg 08/30/20 17:00 08/31/20 16:28 Metformin 500 Mg Tab PO 1,000 mg BID-WM MONI Administration Sodium Chloride 10 ml 08/29/20 09:00 08/31/20 09:46 Flush - Normal Saline 10 Ml Syringe IVF 10 ml Q12HR MONI Administration Thiamine HCl 100 mg 08/29/20 09:00 08/31/20 09:46 Thiamine 100 Mg Tab PO 100 mg DAILY MONI Administration Hospitalist Exam Vitals: Vital Signs (12 hours) Temp Pulse Resp BP BP BP BP 08/31/20 16:00 98.6 F 93 19 151/87 H 08/31/20 15:00 151/87 H 08/31/20 14:05 134/85 117/76 08/31/20 14:00 103 H 18 117/76 08/31/20 11:58 99.1 F 89 16 149/86 H 08/31/20 11:00 149/86 H 08/31/20 09:55 95 20 147/81 H 08/31/20 09:46 124/73 08/31/20 08:00 08/31/20 07:44 98.4 F 88 16 124/73 08/31/20 07:00 124/73 Pulse Ox 08/31/20 16:00 97 08/31/20 15:00 08/31/20 14:05 08/31/20 14:00 100 08/31/20 11:58 99 08/31/20 11:00 08/31/20 09:55 98 08/31/20 09:46 08/31/20 08:00 100 08/31/20 07:44 100 08/31/20 07:00 Weight Admit Weight 156 lb 8 oz Weight 156 lb 8 oz General Appearance: NAD, awake alert Heart: RRR, no gallops, II/IV Respiratory: CTAB, no wheezes, no rales, no ronchi, normal chest expansion Gastrointestinal: soft, non-tender, non-distended, normal bowel sounds Extremities: no cyanosis, no clubbing, no edema Skin: normal turgor Neurological: no focal deficits Musculoskeletal: normal tone, normal strength Psychiatric: normal affect, normal behavior, not oriented Hosp A/P (1) CVA (cerebral vascular accident) Code(s): I63.9 - CEREBRAL INFARCTION, UNSPECIFIED Status: Acute (2) Seizure Code(s): R56.9 - UNSPECIFIED CONVULSIONS Status: Acute (3) Diabetes mellitus Code(s): E11.9 - TYPE 2 DIABETES MELLITUS WITHOUT COMPLICATIONS Status: Acute (4) Hypertension Code(s): I10 - ESSENTIAL (PRIMARY) HYPERTENSION Status: Acute (5) Hyperlipidemia Code(s): E78.5 - HYPERLIPIDEMIA, UNSPECIFIED Status: Acute (6) Hyperammonemia Code(s): E72.20 - DISORDER OF UREA CYCLE METABOLISM, UNSPECIFIED Status: Acute - Plan CVA: Patient presented with a mix of neurologic symptoms. MRI of the brain showed a left posterior lateral infarct which appears acute. Location of the CVA does not necessarily align with the patient's neurologic symptoms. Patient is on aspirin and statin. We will obtain carotid Dopplers. Patient had an echocardiogram on 08/18/2020, will not repeat. Neurology consult obtained. PT OT and speech therapy consults appreciated. Appears as though he will likely need some rehab. He does appear to have significant improvement of his mechanical deficits. Continues to have some cognitive and balance issues. Seizure: Possibly related to the acute CVA. Also possible the patient had some Juanjo's paralysis or symptoms related to the seizure and unrelated to the CVA. Appreciate neurology consult. Continue Keppra 1000 mg twice daily. Continue as needed benzodiazepine for recurrent seizure. Dysphagia: Appears to be improving significantly. Advancing diet textures as possible. Converting medications to p.o. Hyperammonemia: Patient presented with an elevated ammonia level. Unclear how this might have affected his overall neurologic presentation. Appears to have improved. Alcoholic cirrhosis: No evidence of decompensated liver failure presently. Continue thiamine and folate. Acute metabolic encephalopathy: Likely postictal state from seizure. Could have been related to hyperammonemia. Appears resolved. Peptic ulcer disease: Patient recently admitted with gastric outlet obstruction secondary to duodenal ulcer. Continue with PPI. Diabetes mellitus: Blood sugars are very well controlled. Continue with Metformin. Hypomagnesemia: Repleted. Hyperlipidemia: Continue with statin. We will increase the dosage to be high intensity based on the stroke. Recheck lipid panel in the morning.
[2020-08-31] MEDS: DULoxetine 60 MG CAP PO SCH (20:28)
[2020-08-31] MEDS: levETIRAcetam 500 MG TAB PO SCH (20:28)
[2020-08-31] MEDS: Atorvastatin Calcium 10 MG TAB PO SCH (20:28)
[2020-08-31] MEDS: Acetaminophen 325 MG TAB PO PRN (20:29)
--- NOTE | 2020-08-31 21:20 | EKG ---
Test Reason : Blood Pressure : / mmHG Vent. Rate : 111 BPM Atrial Rate : 111 BPM P-R Int : 170 ms QRS Dur : 078 ms QT Int : 344 ms P-R-T Axes : 052 031 076 degrees QTc Int : 467 ms Sinus tachycardia Nonspecific T wave abnormality Abnormal ECG Confirmed by LEA ZUÑIGA, DR. Mantilla ([id number]) on 08/31/2020 9:20:25 PM Referred By: JOSE Confirmed By:DR. Jose Rafael TATE MD
--- NOTE | 2020-08-31 22:20 | ULT ---
Carotid duplex sonogram HISTORY: CVA. FINDINGS: Right: Scattered plaque. Color and spectral Doppler evaluation, peak systolic velocity of 100 cm/s, a nd IC to CC ratio of 0.8 suggest no hemodynamically significant stenosis within the extracranial right ICA. Antegrade flow within the vertebral artery. Left: Scattered plaque. Color and spectral Doppler evaluation, peak systolic velocity of 106 cm/s, an d IC to CC ratio 1.0 suggest no hemodynamically significant stenosis within the extracranial left ICA. Antegrade flow within the vertebral artery. IMPRESSION : Atherosclerosis. No evidence of significant stenosis.
[2020-09-01 03:16] LABS: Vancomycin, Trough Less than 1.1 ug/mL
[2020-09-01] MEDS: Aspirin 325 MG TAB PO SCH (08:52)
[2020-09-01] MEDS: Thiamine 100 MG TAB PO SCH (08:53)
[2020-09-01] MEDS: Folic Acid 1 MG TAB PO SCH (08:53)
[2020-09-01] MEDS: Magnesium Oxide 400 MG TAB PO SCH (08:53)
[2020-09-01] MEDS: Lisinopril 20 MG TAB PO SCH (08:53)
[2020-09-01] MEDS: Alogliptin 25 MG TAB PO SCH (08:53)
[2020-09-01] MEDS: metFORMIN 500 MG TAB PO SCH ×2 (08:53→16:24)
[2020-09-01] MEDS: levETIRAcetam 500 MG TAB PO SCH ×2 (08:53→21:20)
[2020-09-01] MEDS: Lidocaine 5% Patch TD SCH (08:54)
[2020-09-01] MEDS: Multivitamin W/ Minerals 1 TAB PO SCH (08:54)
[2020-09-01] MEDS ORDERED: Alogliptin 6.25 MG TAB PO SCH ×2 (09:00)
[2020-09-01 09:41] LABS: Hemoglobin A1c 8.2 % (4.0-6.0)
[2020-09-01 09:46] LABS: Hemoglobin 9.5 g/dL (14.0-18.0); Mean Corpuscular HGB CONC 31.7 g/dL (32.0-36.0); Mean Corpuscular Hemoglobin 25.5 pg (27.0-31.0); Mean Corpuscular Volume 80.7 fL (78.0-98.0); Mean Platelet Volume 7.1 fL (7.4-10.4); Platelet Count 240 thou/uL (130-400); RBC Distribution Width 15.3 % (11.5-14.5); White Blood Cell (WBC) Count 6.9 thou/uL (4.8-10.8)
[2020-09-01 10:46] LABS: Band 8 % (5-11); Burr Cells SLIGHT = 2-5 cells (100X) (0-1/hpf); Eosinophils 6 % (0-10); Hypochromia SLIGHT = 6-15 cells (100X) (0-5/hpf); Lymphocytes 26 % (21-51); MDiff Complete? YES; Monocytes 20 % (0-10); Neutrophil 39 % (42-75); Platelet Morphology Comment Appears Adequate; Polychromasia SLIGHT = 2-3 cells (100X) (0-2/hpf); Reactive Lymphocytes 1 % (0-10)
[2020-09-01] MEDS ORDERED: Iopamidol-370 76% 500 ML 1 ML ONE (11:21)
[2020-09-01] MEDS: HumaLOG 300 UNITS/3 ML VIAL SC PRN (11:41)
--- NOTE | 2020-09-01 14:08 | PDOC.NEUPN ---
- Subjective Encounter Date: 09/01/20 Subjective: Mr. Castañeda is alert and oriented to person and place but not to time and year. He is pleasantly confused at baseline. - Objective Vital Signs & Weight: Vital Signs (12 hours) Temp Pulse Resp BP BP Pulse Ox 09/01/20 12:46 123/76 09/01/20 11:30 97.9 F 78 16 123/76 99 09/01/20 08:53 141/85 H 09/01/20 07:42 98.4 F 92 16 142/81 H 97 09/01/20 06:43 141/85 H 09/01/20 04:00 98.0 F 106 H 24 H 136/72 97 Weight Admit Weight 156 lb 8 oz Weight 156 lb 8 oz I&O: 08/31/20 09/01/20 09/02/20 06:59 06:59 06:59 Intake Total 3501 1280 474 Output Total 1250 Balance 2251 1280 474 Result Diagrams: 09/01/20 09:23 08/31/20 01:49 Additional Labs: Accuchecks 09/01/20 09/01/20 08/31/20 10:38 05:10 20:26 POC Glucose 165 H 136 H 181 H 08/31/20 16:33 POC Glucose 182 H Radiology Reviewed by me: Yes EKG Reviewed by me: Yes ROS - Review of Systems ROS unobtainable: due to mental status - Medication Medications: Active Medications Generic Name Dose Route Start Last Admin Trade Name Freq PRN Reason Stop Dose Admin Acetaminophen 650 mg 08/28/20 17:52 08/31/20 20:29 Acetaminophen 325 Mg Tab PO 650 mg Q4H PRN Administration Headache/Fever/Mild Pain (1-3) Alogliptin Benzoate 25 mg 09/01/20 09:00 09/01/20 08:53 Alogliptin 25 Mg Tab PO 25 mg DAILY MONI Administration Aspirin 325 mg 09/01/20 09:00 09/01/20 08:52 Aspirin 325 Mg Tab PO 325 mg DAILY MONI Administration Atorvastatin Calcium 40 mg 08/31/20 21:00 08/31/20 20:28 Atorvastatin Calcium 10 Mg Tab PO 40 mg HS MONI Administration Duloxetine HCl 60 mg 08/30/20 21:00 08/31/20 20:28 Duloxetine 60 Mg Cap PO 60 mg HS MONI Administration Folic Acid 1 mg 08/29/20 09:00 09/01/20 08:53 Folic Acid 1 Mg Tab PO 1 mg DAILY MONI Administration Insulin Human Lispro 0 units 08/28/20 18:35 09/01/20 11:41 Humalog 300 Units/3 Ml Vial SC 2 unit .MILD SLIDING SCALE PRN Administration Mild Correctional Scale Insulin Human Lispro 0 units 08/28/20 18:35 08/30/20 20:42 Humalog 300 Units/3 Ml Vial SC 2 unit .BEDTIME SLIDING SC PRN Administration Bedtime Correctional Scale Iron/Minerals/Multivitamins 1 tab 08/29/20 09:00 09/01/20 08:54 Multivitamin W/ Minerals 1 Tab PO 1 tab DAILY MONI Administration Levetiracetam 1,000 mg 08/31/20 21:00 09/01/20 08:53 Levetiracetam 500 Mg Tab PO 1,000 mg BID MONI Administration Lidocaine 1 patch 08/31/20 09:00 09/01/20 08:54 Lidocaine 5% Patch TD 1 patch DAILY MONI Administration Lisinopril 20 mg 08/31/20 09:00 09/01/20 08:53 Lisinopril 20 Mg Tab PO 20 mg DAILY MONI Administration Magnesium Oxide 400 mg 08/29/20 09:00 09/01/20 08:53 Magnesium Oxide 400 Mg Tab PO 400 mg DAILY MONI Administration Metformin HCl 1,000 mg 08/30/20 17:00 09/01/20 08:53 Metformin 500 Mg Tab PO 1,000 mg BID-WM MONI Administration Pantoprazole Sodium 40 mg 09/01/20 09:00 09/01/20 08:53 Pantoprazole 40 Mg Tab PO 40 mg DAILY MONI Administration Sodium Chloride 10 ml 08/29/20 09:00 09/01/20 08:54 Flush - Normal Saline 10 Ml Syringe IVF 10 ml Q12HR MONI Administration Thiamine HCl 100 mg 08/29/20 09:00 09/01/20 08:53 Thiamine 100 Mg Tab PO 100 mg DAILY MONI Administration - Exam General Appearance: awake alert Eye: PERRL ENT: normocephalic atraumatic Neck: supple Respiratory: CTAB Cardiovascular: RRR Gastrointestinal: soft Extremities: no cyanosis Skin: normal turgor Neurological: no new deficit Musculoskeletal: normal tone, no muscle wasting PSYCH: normal affect, normal behavior, oriented to person, oriented to place Results - Labs Result Diagrams: 09/01/20 09:23 08/31/20 01:49 Lab results: WBC 6.9 thou/uL (4.8-10.8) 09/01/20 09:23 Hgb 9.5 g/dL (14.0-18.0) L 09/01/20 09:23 Hct 29.8 % (42.0-52.0) L 09/01/20 09:23 MCV 80.7 fL (78.0-98.0) 09/01/20 09:23 Plt Count 240 thou/uL (130-400) 09/01/20 09:23 Neutrophils % 74.2 % (42.0-75.0) 08/31/20 01:49 Band Neuts % (Manual) 8 % (5-11) 09/01/20 09:23 Sodium 137 mmol/L (136-145) 08/31/20 01:49 Potassium 3.7 mmol/L (3.5-5.1) 08/31/20 01:49 Chloride 109 mmol/L (98-107) H 08/31/20 01:49 Carbon Dioxide 20 mmol/L (23-31) L 08/31/20 01:49 BUN 7 mg/dL (8.4-25.7) L 08/31/20 01:49 Creatinine 0.76 mg/dL (0.7-1.3) 08/31/20 01:49 Glucose 174 mg/dL (80-115) H 08/31/20 01:49 Calcium 7.8 mg/dL (7.8-10.44) 08/31/20 01:49 Total Bilirubin 0.7 mg/dL (0.2-1.2) 08/31/20 04:39 AST 24 U/L (5-34) 08/31/20 04:39 ALT 11 U/L (8-55) 08/31/20 04:39 Alkaline Phosphatase 90 U/L (40-110) 08/31/20 04:39 Ammonia 48 umol/L (18-72) 08/31/20 04:39 Troponin I 0.020 ng/mL (< 0.028) 08/31/20 01:49 B-Natriuretic Peptide 252.4 pg/mL (0-100) H 08/31/20 01:49 Serum Total Protein 5.9 g/dL (5.8-8.1) 08/31/20 04:39 Albumin 2.6 g/dL (3.4-4.8) L 08/31/20 04:39 Urine Ketones 10 mg/dL (Negative) A 08/30/20 14:08 Urine Blood Negative (Negative) 08/30/20 14:08 Urine Nitrite 2+ (Negative) A 08/30/20 14:08 Ur Leukocyte Esterase Negative Danis/uL (Negative) 08/30/20 14:08 Urine RBC 0-3 HPF (0-3) 08/30/20 14:08 Urine WBC 4-6 HPF (0-3) A 08/30/20 14:08 Ur Squamous Epith Cells 0-3 HPF (0-3) 08/30/20 14:08 Urine Bacteria None Seen HPF (None Seen) 08/30/20 14:08 - Radiology Interpretation MRI - head Additional Comment: MRI of the brain showed acute infarction in the left temporal parietal region. PN A/P (1) CVA (cerebral vascular accident) Code(s): I63.9 - CEREBRAL INFARCTION, UNSPECIFIED Status: Acute (2) Diabetes mellitus Code(s): E11.9 - TYPE 2 DIABETES MELLITUS WITHOUT COMPLICATIONS Status: Acute (3) Hyperammonemia Code(s): E72.20 - DISORDER OF UREA CYCLE METABOLISM, UNSPECIFIED Status: Acute (4) Hyperlipidemia Code(s): E78.5 - HYPERLIPIDEMIA, UNSPECIFIED Status: Acute (5) Hypertension Code(s): I10 - ESSENTIAL (PRIMARY) HYPERTENSION Status: Acute (6) Seizure Code(s): R56.9 - UNSPECIFIED CONVULSIONS Status: Acute - Plan Daily Plan: PT/OT, speech therapy, DVT proph w/lovenox Mr. Castañeda is a 64-year-old male who was consulted for altered mental status and focal weakness he seems to be resolved. Patient had right temporal spikes on EEG which explains his initial presentation and is consistent with the semiology of seizures. Continue Keppra 500 mg twice daily for seizure prophylaxis Observe seizure precautions. Ativan 2 mg IV for seizure greater than 2 minutes. Patient had no further seizures since initiation of Keppra. MRI Brain showed left temporoparietal infarct which does not explain his symptoms. Carotid Dopplers did not reveal hemodynamically significant stenosis 2D echo to evaluate for left ventricular ejection fraction is pending at this time. Continue telemetry to rule out arrhythmias Monitor blood pressure and blood glucose Continue aspirin high intensity statin for secondary stroke prevention. New home medications PT/OT/speech DVT prophylaxis Patient had spiked a fever of 102. Lumbar puncture seems unremarkable. ID is on board. Continue medical management per primary team.
--- NOTE | 2020-09-01 15:50 | PDOC.HOSPP ---
- Subjective Encounter Date: 09/01/20 Subjective: Patient reports he feels well. He denies any complaints. - Objective Vital Signs & Weight: Vital Signs (12 hours) Temp Pulse Pulse Pulse Resp BP BP 09/01/20 14:03 101 H 86 151/83 H 09/01/20 12:46 123/76 09/01/20 11:30 97.9 F 78 16 09/01/20 08:53 141/85 H 09/01/20 07:42 98.4 F 92 16 09/01/20 06:43 141/85 H 09/01/20 04:00 98.0 F 106 H 24 H BP BP Pulse Ox 09/01/20 14:03 129/81 09/01/20 12:46 09/01/20 11:30 123/76 99 09/01/20 08:53 09/01/20 07:42 142/81 H 97 09/01/20 06:43 09/01/20 04:00 136/72 97 Weight Admit Weight 156 lb 8 oz Weight 156 lb 8 oz I&O: 08/31/20 09/01/20 09/02/20 06:59 06:59 06:59 Intake Total 3501 1280 474 Output Total 1250 Balance 2251 1280 474 Result Diagrams: 09/01/20 09:23 08/31/20 01:49 Additional Labs: Accuchecks 09/01/20 09/01/20 08/31/20 10:38 05:10 20:26 POC Glucose 165 H 136 H 181 H 08/31/20 16:33 POC Glucose 182 H Hospitalist ROS - Medication Medications: Active Medications Generic Name Dose Route Start Last Admin Trade Name Freq PRN Reason Stop Dose Admin Acetaminophen 650 mg 08/28/20 17:52 08/31/20 20:29 Acetaminophen 325 Mg Tab PO 650 mg Q4H PRN Administration Headache/Fever/Mild Pain (1-3) Alogliptin Benzoate 25 mg 09/01/20 09:00 09/01/20 08:53 Alogliptin 25 Mg Tab PO 25 mg DAILY MONI Administration Aspirin 325 mg 09/01/20 09:00 09/01/20 08:52 Aspirin 325 Mg Tab PO 325 mg DAILY MONI Administration Atorvastatin Calcium 40 mg 08/31/20 21:00 08/31/20 20:28 Atorvastatin Calcium 10 Mg Tab PO 40 mg HS MONI Administration Duloxetine HCl 60 mg 08/30/20 21:00 08/31/20 20:28 Duloxetine 60 Mg Cap PO 60 mg HS MONI Administration Folic Acid 1 mg 08/29/20 09:00 09/01/20 08:53 Folic Acid 1 Mg Tab PO 1 mg DAILY MONI Administration Insulin Human Lispro 0 units 08/28/20 18:35 09/01/20 11:41 Humalog 300 Units/3 Ml Vial SC 2 unit .MILD SLIDING SCALE PRN Administration Mild Correctional Scale Insulin Human Lispro 0 units 08/28/20 18:35 08/30/20 20:42 Humalog 300 Units/3 Ml Vial SC 2 unit .BEDTIME SLIDING SC PRN Administration Bedtime Correctional Scale Iron/Minerals/Multivitamins 1 tab 08/29/20 09:00 09/01/20 08:54 Multivitamin W/ Minerals 1 Tab PO 1 tab DAILY MONI Administration Levetiracetam 1,000 mg 08/31/20 21:00 09/01/20 08:53 Levetiracetam 500 Mg Tab PO 1,000 mg BID MONI Administration Lidocaine 1 patch 08/31/20 09:00 09/01/20 08:54 Lidocaine 5% Patch TD 1 patch DAILY MONI Administration Lisinopril 20 mg 08/31/20 09:00 09/01/20 08:53 Lisinopril 20 Mg Tab PO 20 mg DAILY MONI Administration Magnesium Oxide 400 mg 08/29/20 09:00 09/01/20 08:53 Magnesium Oxide 400 Mg Tab PO 400 mg DAILY MONI Administration Metformin HCl 1,000 mg 08/30/20 17:00 09/01/20 08:53 Metformin 500 Mg Tab PO 1,000 mg BID-WM MONI Administration Pantoprazole Sodium 40 mg 09/01/20 09:00 09/01/20 08:53 Pantoprazole 40 Mg Tab PO 40 mg DAILY MONI Administration Sodium Chloride 10 ml 08/29/20 09:00 09/01/20 08:54 Flush - Normal Saline 10 Ml Syringe IVF 10 ml Q12HR MONI Administration Thiamine HCl 100 mg 08/29/20 09:00 09/01/20 08:53 Thiamine 100 Mg Tab PO 100 mg DAILY MONI Administration Hospitalist Exam Vitals: Vital Signs (12 hours) Temp Pulse Pulse Pulse Resp BP BP 09/01/20 14:03 101 H 86 151/83 H 09/01/20 12:46 123/76 09/01/20 11:30 97.9 F 78 16 09/01/20 08:53 141/85 H 09/01/20 07:42 98.4 F 92 16 09/01/20 06:43 141/85 H 09/01/20 04:00 98.0 F 106 H 24 H BP BP Pulse Ox 09/01/20 14:03 129/81 09/01/20 12:46 09/01/20 11:30 123/76 99 09/01/20 08:53 09/01/20 07:42 142/81 H 97 09/01/20 06:43 09/01/20 04:00 136/72 97 Weight Admit Weight 156 lb 8 oz Weight 156 lb 8 oz General Appearance: NAD, awake alert Heart: RRR, no murmur, no gallops, no rubs, normal peripheral pulses Respiratory: CTAB, no wheezes, no rales, no ronchi, normal chest expansion, no tachypnea, normal percussion Gastrointestinal: soft, non-tender, non-distended, normal bowel sounds, no palpable masses, no hepatomegaly, no splenomegaly, no bruit Extremities: no cyanosis, no clubbing, no edema Skin: normal turgor Neurological - other findings: Left hand weakness. Musculoskeletal: normal tone, normal strength, no muscle wasting Psychiatric: normal affect, normal behavior, A&O x 3 Hosp A/P (1) CVA (cerebral vascular accident) Code(s): I63.9 - CEREBRAL INFARCTION, UNSPECIFIED Status: Acute (2) Seizure Code(s): R56.9 - UNSPECIFIED CONVULSIONS Status: Acute (3) Diabetes mellitus Code(s): E11.9 - TYPE 2 DIABETES MELLITUS WITHOUT COMPLICATIONS Status: Acute (4) Hypertension Code(s): I10 - ESSENTIAL (PRIMARY) HYPERTENSION Status: Acute (5) Hyperlipidemia Code(s): E78.5 - HYPERLIPIDEMIA, UNSPECIFIED Status: Acute (6) Hyperammonemia Code(s): E72.20 - DISORDER OF UREA CYCLE METABOLISM, UNSPECIFIED Status: Acute (7) History of alcohol abuse Code(s): F10.11 - ALCOHOL ABUSE, IN REMISSION Status: Acute - Plan CVA: Patient presented with a mix of neurologic symptoms. MRI of the brain showed a left posterior lateral infarct which appears acute. Location of the CVA does not necessarily align with the patient's neurologic symptoms. Patient is on aspirin and statin. We will obtain carotid Dopplers. Patient had an echocardiogram on 08/18/2020, will not repeat. Neurology consult obtained. PT OT and speech therapy consults appreciated. Appears as though he will likely need some rehab. He does appear to have significant improvement of his mechanical deficits. Continues to have some cognitive and balance issues. Case management for possible disposition options Seizure: Possibly related to the acute CVA. Also possible the patient had some Juanjo's paralysis or symptoms related to the seizure and unrelated to the CVA. Appreciate neurology consult. Continue Keppra 1000 mg twice daily. Continue as needed benzodiazepine for recurrent seizure. Has not had any recurrences since admission Dysphagia: Appears to be improving significantly. Advancing diet textures as possible. Converting medications to p.o. Hyperammonemia: Patient presented with an elevated ammonia level. Unclear how this might have affected his overall neurologic presentation. Appears to have improved. Not on specific treatment at this time. Alcoholic cirrhosis: No evidence of decompensated liver failure presently. Continue thiamine and folate. Acute metabolic encephalopathy: Likely postictal state from seizure. Could have been related to hyperammonemia. Appears resolved. Peptic ulcer disease: Patient recently admitted with gastric outlet obstruction secondary to duodenal ulcer. Continue with PPI. Diabetes mellitus: Blood sugars are very well controlled. Continue with Metformin. Hypomagnesemia: Repleted. Hyperlipidemia: Continue with statin. We will increase the dosage to be high intensity based on the stroke. Recheck lipid panel in the morning.
--- NOTE | 2020-09-01 18:16 | PRG ---
DATE OF SERVICE: 09/01/2020 SUBJECTIVE: Mr. Castañeda is sitting up, starting to eat dinner, complains of pain in the left side of his throat when he swallows. He says it has been there for quite a while. He points to the junction between the hypopharynx and the esophagus. Otherwise, he is about the same as his neurological status has not changed much left hemiparesis. He does not choke when he eats. No shortness of breath or chest pain. No abdominal pain. He is voiding in the urinal and he is saturating 98 on room air. OBJECTIVE: VITAL SIGNS: Awake, alert, oriented. NECK: Tenderness on the left side of his neck, lateral aspect. LUNGS: Clear to auscultation and percussion. HEART: S1 and S2, regular rate. ABDOMEN: Soft. EXTREMITIES: Left hemiparesis. LABORATORY DATA: Syphilis, hepatitis C and HIV negative. White cell count down to 6.9, hemoglobin 9.5, platelets 240. Creatinine 0.76. Urine culture with gram-positive cocci, probably not meaningful. ASSESSMENT AND DISCUSSION: Type 2 diabetes; prior transient ischemic attack; history of alcoholism, in remission; coronary artery disease; acute cerebrovascular accident in the left temporoparietal region, more than 24 hours before admission and fever, which seems to have resolved now. He is off antimicrobials. His SARS-CoV-2 antibodies are not back yet. The patient probably did not have any bacterial infection and I agree to continue withholding antimicrobial therapy at this point in time. SARS-CoV-2 antibodies are pending and syphilis, HIV and hepatitis C have been ruled out as well. The neck pain needs to be further evaluated since it has been there for a while and probably will need at least an EGD, may need a CT of the neck as well with contrast to be performed. Job ID: [id number] [facility]
--- NOTE | 2020-09-01 20:03 | CT ---
CT of the neck: 09/01/2020 HISTORY: Transient ischemic attack, throat pain TECHNIQUE: Axial CT imaging at 2.5 mm intervals through the neck with IV contrast. Coronal and sagitt al reformatted imaging obtained. FINDINGS: Partially imaged brain parenchyma appears grossly unremarkable. Visualized paranasal sinuse s and mastoid air cells grossly unremarkable. The retroantral fat and parapharyngeal fat appears clear bilaterally. The parotid glands and the submandibular glands appear grossly unremarkable bilaterally. Region of the tonsillar pillars, epiglottis and preepiglottic fat, hyoid bone, thyroid cartilage, and cricoid cartilage grossly unremarkable. Imaged lung apices demonstrate nonspecific increased linear interstitial density, left greater than r ight. There is atherosclerotic calcification of the aortic arch. No lymphadenopathy is appreciated within the neck. There is atherosclerotic calcification of the distal right CCA and proximal right ICA. There is mild atherosclerotic calcification of the distal left CCA and proximal left ICA. No fluid collection/abscess is appreciated within the neck. Review of the osseous structures demonstrate significant degenerative change at the atlantoaxial inte rspace and the C1-2 articulation on the left. There is lower cervical spine facet hypertrophy on the right. No acute osseous abnormality is evident . IMPRESSION: Imaged lung apices demonstrate nonspecific scattered areas of interstitial prominence, ch ronicity uncertain. Findings could be related to chronic interstitial density or could be related to interstitial infectious process. No lymphadenopathy is seen in the neck and there is no evidence for abscess. Prominent atherosclerotic calcification of the distal CCA and proximal ICA, right greater than left.
[2020-09-01] MEDS: DULoxetine 60 MG CAP PO SCH (21:19)
[2020-09-01] MEDS: Acetaminophen 325 MG TAB PO PRN (21:19)
[2020-09-01] MEDS: Atorvastatin Calcium 10 MG TAB PO SCH (21:21)
[2020-09-02] MEDS: Lisinopril 20 MG TAB PO SCH (08:36)
[2020-09-02] MEDS: Aspirin 325 MG TAB PO SCH (08:37)
[2020-09-02] MEDS: Magnesium Oxide 400 MG TAB PO SCH (08:37)
[2020-09-02] MEDS: Multivitamin W/ Minerals 1 TAB PO SCH (08:37)
[2020-09-02] MEDS: Alogliptin 25 MG TAB PO SCH (08:37)
[2020-09-02] MEDS: levETIRAcetam 500 MG TAB PO SCH ×2 (08:38→20:32)
[2020-09-02] MEDS: Folic Acid 1 MG TAB PO SCH (08:38)
[2020-09-02] MEDS: metFORMIN 500 MG TAB PO SCH ×2 (08:38→16:58)
[2020-09-02] MEDS: Thiamine 100 MG TAB PO SCH (08:38)
[2020-09-02] MEDS: Lidocaine 5% Patch TD SCH (08:39)
--- NOTE | 2020-09-02 11:46 | PRG ---
DATE OF SERVICE: 09/02/2020 SUBJECTIVE: I was asked to re-evaluate the patient for throat discomfort and "dysphagia." He complains of throat in the left side of his neck when he swallows this is "scratchy." He states sometimes when he eats, he feels some discomfort in his esophagus. This is going on for quite some time. He has no overt dysphagia. He has no melena or hematemesis. The patient was seen by the GI service on 08/18/2020 for epigastric pain, nausea, vomiting, and a thickened esophagus on CT. He has a history of cirrhosis. He underwent an upper endoscopy with Dr. Jm Ramos on 08/18/2020. This showed LA grade D reflux esophagitis, retained gastric contents and a large duodenal bulb ulcer with no active bleeding. IV PPIs are recommended and avoidance of NSAIDs. The patient denies any overt odynophagia with swallowing in through the chest with burning. Presently, he is on omeprazole 40 mg once a day. He had a CT scan of his neck yesterday, which showed nonspecific interstitial prominence in his lungs. No lymphadenopathy in the neck and no evidence of abscess. He also had prominent atherosclerotic calcifications, distal OCA and proximal ICA, right greater than left. PHYSICAL EXAMINATION: GENERAL: He is resting comfortably in bed. VITAL SIGNS: Temperature is 98.7, pulse 81, blood pressure 153/82. HEENT: Oropharynx shows no evidence of thrush. NECK: Supple without nodes, masses, or tenderness. LUNGS: Clear. ABDOMEN: Soft and nontender. EXTREMITIES: No clubbing, cyanosis, or edema. LABORATORY STUDIES: White count 6.8, hemoglobin 6.9, MCV 80.7, platelets 240 and that was yesterday. INR is 1.52 on the 17th. AST and ALT are 24 and 11 with a bilirubin of 0.7 on the 18th. Albumin of 2.6 and a protein of 5.9. ASSESSMENT: 1. Throat scratchiness in the left when swallowing, probably related to his reflux. There are no signs of thrush. He had a recent endoscopy 15 days ago, which showed severe LA grade D reflux esophagitis. He is on one oral PPI daily and lying flat in bed most of the time. 2. Large duodenal ulcer. Biopsy was positive for H pylori gastritis. 3. History of alcohol abuse and cirrhosis and portal hypertension seen on previous admission CAT scan. RECOMMENDATIONS: 1. Increase Protonix to 40 IV b.i.d. while he is here in the hospital. 2. Avoid NSAIDs. 3. If throat symptoms persist and needs to be evaluated further, ENT evaluation would be reasonable to rule out pharyngeal lesions. We will defer to primary service. 4. Regarding his H pylori, this can be treated with quadruple therapy which will start now and needs to be continued at discharge for 14 days. At this time, we will sign off. If I can be any further assistance in patient's care, please do not hesitate to contact me. Job ID: [id number]
[2020-09-02] MEDS: HumaLOG 300 UNITS/3 ML VIAL SC PRN (12:17)
[2020-09-02] MEDS: Pepto Bismol Chew TAB PO SCH ×2 (13:22→16:58)
[2020-09-02] MEDS: metroNIDAZOLE 250 MG TAB PO SCH ×3 (13:22→20:32)
--- NOTE | 2020-09-02 14:43 | EKG ---
Test Reason : Blood Pressure : / mmHG Vent. Rate : 126 BPM Atrial Rate : 120 BPM P-R Int : 000 ms QRS Dur : 066 ms QT Int : 308 ms P-R-T Axes : 000 044 105 degrees QTc Int : 446 ms Sinus tachycardia with tremor artifact Septal infarct , age undetermined Abnormal ECG Confirmed by ELISEO ZUÑIGA, NICHOLAS Mckoy ([id number]), film or videotape editor EPI GARCIA ([id number]) on 09/02/2020 2:42:53 PM Referred By: Confirmed By:NICHOLAS GOMES MD
[2020-09-02 15:31] VITALS: BP 143/83; TEMP 98
--- NOTE | 2020-09-02 16:04 | PDOC.DS.DS ---
Provider Date of Admission: 08/28/20 15:18 Admitting Provider: Rivera Lisa MD Primary Care Physician: [facility] Course Hospital Course: Patient is a 64-year-old male with a history of significant alcohol use who presented to the hospital on a previous admission with gastric outlet obstruction from peptic ulcer disease. Patient was discharged from that admission and had been home a few days when he developed some stiffening and shaking concerning for possible seizure or stroke. CVA: Patient presented with a mix of neurologic symptoms. MRI of the brain showed a left posterior lateral infarct which appears acute. Location of the CVA does not necessarily align with the patient's neurologic symptoms. Patient is on aspirin and statin. Carotid Dopplers did not reveal any occlusive disease Patient had an echocardiogram on 08/18/2020, was not repeated Neurology consult obtained. PT OT and speech therapy consults appreciated. Based on their assessments it was felt the patient would benefit from rehab. He does appear to have significant improvement of his mechanical deficits. Continues to have some cognitive and balance issues. Case management for possible disposition options Seizure: Possibly related to the acute CVA. Also possible the patient had some Juanjo's paralysis or symptoms related to the s eizure and unrelated to the CVA. Appreciate neurology consult. Continue Keppra 1000 mg twice daily. No recurrences since admission. Dysphagia: On initial evaluation patient demonstrated some dysphagia. Appears to be improving significantly. Advancing diet textures as possible. Converted to p.o. medications. Hyperammonemia: Patient presented with an elevated ammonia level. Unclear how this might have affected his overall neurologic presentation. Appears to have improved. Not on specific treatment at this time. Should he have recurrence is would likely need to initiate lactulose. Alcoholic cirrhosis: No evidence of decompensated liver failure presently. Continue thiamine and folate. Acute metabolic encephalopathy: Likely postictal state from seizure. Could have been related to hyperammonemia. Appears resolved. Peptic ulcer disease: Patient recently admitted with gastric outlet obstruction secondary to duodenal ulcer. Continue with PPI. Diabetes mellitus: Blood sugars are very well controlled. Continue with Metformin. Hypomagnesemia: Repleted. Hyperlipidemia: Continue with statin. We will increase the dosage to be high intensity based on the stroke. Recheck lipid panel in the morning. 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 Resuscitation Status: 08/28/20 17:52 Resuscitation Status Routine Resuscitation Status: FULL: Full Resuscitation Discussed with: Patient's son Dmitry Castañeda Lab Results: 09/01/20 09:23 08/31/20 01:49 Abnormal Lab Results - Last 48 hrs 09/01/20 09:23: Hemoglobin A1c 8.2 H 09/01/20 09:23: RBC 3.70 L, Hgb 9.5 L, Hct 29.8 L, MCH 25.5 L, MCHC 31.7 L, RDW 15.3 H, MPV 7.1 L, Neutrophils % (Manual) 39 L, Monocytes % (Manual) 20 H Microbiology - Entire Visit 08/30/20 14:08 Urine voided Urine Culture - Final Staphylococcus epidermidis 08/30/20 13:02 Spinal Fluid Body Fluid Culture - Preliminary 08/30/20 12:21 Venous blood - Left Arm Blood Culture - Preliminary NO GROWTH AT 48 HOURS 08/30/20 12:21 Venous blood - Right Hand Blood Culture - Preliminary NO GROWTH AT 48 HOURS Vitals: Vital Signs (12 hours) Temp Pulse Resp BP BP BP Pulse Ox 09/02/20 15:29 98 F 74 16 143/83 H 99 09/02/20 11:29 98.2 F 81 14 135/83 97 09/02/20 08:38 99 09/02/20 07:33 97.9 F 81 16 153/82 H 99 09/02/20 04:06 98.2 F 84 14 139/84 99 09/02/20 04:00 139/84 Weight Admit Weight 156 lb 8 oz Weight 156 lb 8 oz Physical Exam: The patient was seen and examined on the day of discharge. General Appearance: NAD, awake alert Neck: supple, symmetric, no JVD, no thyromegaly, no lymphadenopathy Respiratory: CTAB, no wheezes, no rales, no ronchi Cardiovascular: RRR, no murmur, no gallops, no rubs Gastrointestinal: soft, non-tender, non-distended, normal bowel sounds Extremities: no cyanosis, no clubbing, no edema Skin: normal turgor Neurological - other findings: Left hand weakness secondary to denervation Musculoskeletal: normal tone, normal strength, no muscle wasting PSYCH: normal affect, normal behavior, A&O x 3 Problem (1) CVA (cerebral vascular accident) Code(s): I63.9 - CEREBRAL INFARCTION, UNSPECIFIED Status: Acute (2) Seizure Code(s): R56.9 - UNSPECIFIED CONVULSIONS Status: Acute (3) Diabetes mellitus Code(s): E11.9 - TYPE 2 DIABETES MELLITUS WITHOUT COMPLICATIONS Status: Acute (4) Hypertension Code(s): I10 - ESSENTIAL (PRIMARY) HYPERTENSION Status: Acute (5) Hyperlipidemia Code(s): E78.5 - HYPERLIPIDEMIA, UNSPECIFIED Status: Acute (6) Hyperammonemia Code(s): E72.20 - DISORDER OF UREA CYCLE METABOLISM, UNSPECIFIED Status: Acute (7) History of alcohol abuse Code(s): F10.11 - ALCOHOL ABUSE, IN REMISSION Status: Acute (8) Paralysis of left hand Code(s): G83.24 - MONOPLEGIA OF UPPER LIMB AFFECTING LEFT NONDOMINANT SIDE Status: Chronic (9) Peptic ulcer disease Code(s): K27.9 - PEPTIC ULC, SITE UNSP, UNSP AC OR CHR, W/O HEMOR OR PERF Status: Acute (10) Odynophagia Code(s): R13.10 - DYSPHAGIA, UNSPECIFIED Status: Acute (11) Acute metabolic encephalopathy Code(s): G93.41 - METABOLIC ENCEPHALOPATHY Status: Acute Time Spent in discharge related activities (mins): 35 Plan Home Medications: Medication Instructions Recorded Confirmed Type DULoxetine [Cymbalta] 60 mg PO HS 07/18/19 08/28/20 History metFORMIN [Glucophage] 1,000 mg PO BID-WM #60 tab 03/30/20 08/28/20 Rx HumuLIN 70/30 [HumuLIN 70/30 Vial] 20 unit SC BID-AC 08/17/20 08/28/20 History Pantoprazole Sodium [Protonix] 40 mg PO BID 30 Days #60 dominickt 08/21/20 08/28/20 Rx Lisinopril [Prinivil] 20 mg PO DAILY 08/28/20 08/28/20 History Acetaminophen [Tylenol Regular 650 mg PO Q4H PRN tab 09/02/20 Rx Strength] Alogliptin 25 mg PO DAILY tab 09/02/20 Rx Aspirin 325 mg PO DAILY tab 09/02/20 Rx Atorvastatin Calcium [Lipitor] 40 mg PO HS tab 09/02/20 Rx Bismuth Subsalicylate 2 tab PO QID tablet 09/02/20 Rx [Pepto-Bismol] Doxycycline [Vibramycin] 100 mg PO BID cap 09/02/20 Rx Folic Acid [Folvite] 1 mg PO DAILY tab 09/02/20 Rx Magnesium Oxide 400 mg PO DAILY tab 09/02/20 Rx Sennosides/Docusate Sodium 2 tab PO BID PRN tab 09/02/20 Rx [Senokot S] Thiamine 100 mg PO DAILY tab 09/02/20 Rx levETIRAcetam [Keppra] 1,000 mg PO BID tab 09/02/20 Rx metroNIDAZOLE [Flagyl] 250 mg PO QID tab 09/02/20 Rx Allergies: No Known Allergies Allergy (Verified 08/17/20 13:07) Activity:: Activity as Tolerated Nourishment:: Diabetic Diet Referrals: [facility] [Primary Care Provider] - Disposition: [facility] CORE MEASURES:: N/A
[2020-09-02] MEDS: Atorvastatin Calcium 10 MG TAB PO SCH (20:30)
[2020-09-02] MEDS: DULoxetine 60 MG CAP PO SCH (20:32)
[2020-09-02] MEDS ORDERED: Pantoprazole 40 MG VIAL IVP SCH (21:00)
[2020-09-02] MEDS ORDERED: Doxycycline 100 MG CAP PO SCH (21:00)
--- NOTE | 2020-09-04 04:35 | PQF ---
CLINICAL DOCUMENTATION CLARIFICATION FORM: Dear : Paolo Proctor Date / Time: 09/04/20 Please exercise your independent, professional judgment in responding to the clarification form. Clinical indicators are provided on the bottom of this form for your review Please check appropriate box(es): Conflicting documentation was noted in the Medical Record; please clarify if patient is being treated/monitored for: [ ] Sepsis [ ] No Sepsis [ ] Other diagnosis, please specify: [ ] Unable to determine In addition, please specify: Present on Admission (POA): [ ] Yes [ ] No [ ] Unable to determine Physician Signature: Date/Time: For continuity of documentation, please document condition throughout progress notes and discharge summary. Thank You To be completed by CDI/Coding staff for physician review: Present Clinical Indicators - Signs / Symptoms / Labs Results and Location in Medical Record [x] Sepsis PN 08/30 [x] He was confused and altered ED Notes 08/28 [x] fever spike to 102 and leukocytosis PN 08/30 [x] differebtial diagnosuis includes fever secondary to aspiration PNA..due to infectious vs noninfectious causes of CVA associated fever Consult 08/30 [x] Patient has no evidence of active infection PN 09/01 [x] Fever could potentially be central fever PN 09/01 [x] Pfuo=111.1 Pxfgi=321 Respi=20 FP=804/56 VS 08/29 [x] WBC: 08/28=13.5 08/29=15.1 08/31=12.0 Laboratory 08/28 [x] blood culture: coagulase neg staph Laboratory 08/30 Present Risk Factors Results and Location in Medical Record [x] 64 years old male ED Notes 08/28 [x] DM ED Notes 08/28 [x] Alcoholic Liver cirrhosis HP 08/28 Present Treatments Results and Location in Medical Record [x] LP LP 08/30 [x] IVF MAR 08/28 [x] Ampicillin 2gm IV SEP 12 [x] Vancomycin 1gm IV SEP 12 [x] Cefepime 2gm IV SEP 12 [x] Vibramycin 100mg Oral SEP 12 [x] Flagyl 250mg Oral SEP 12 CDS/Purification Operator Signature: Katy Caceres Phone #: [phone] Date/Time: 09/04/20 This is a permanent part of the Medical Record [facility]
== END 2020-09-02 21:02 | DRG 64 ==
LOC: ERS 12:27 → 2SE 15:18
PROVIDERS: ADMIT Emergency Medicine; ATTEND Internal Medicine
PROC: 009U3ZX Drainage of Spinal Canal, Percutaneous Approach, Diagnostic (ICD-10-PCS; principal; 2020-08-30)
DX: I63.9 Cerebral infarction, unspecified (principal); A41.9 Sepsis, unspecified organism; G93.41 Metabolic encephalopathy; K31.1 Adult hypertrophic pyloric stenosis; G81.94 Hemiplegia, unspecified affecting left nondominant side; Z20.822 Contact with and (suspected) exposure to COVID-19; I10 Essential (primary) hypertension; K21.9 Gastro-esophageal reflux disease without esophagitis; E11.9 Type 2 diabetes mellitus without complications; E78.00 Pure hypercholesterolemia, unspecified; F32.9 Major depressive disorder, single episode, unspecified; G89.29 Other chronic pain; K70.30 Alcoholic cirrhosis of liver without ascites; K26.9 Duodenal ulcer, unspecified as acute or chronic, without hemorrhage or perforation; R13.10 Dysphagia, unspecified; F10.20 Alcohol dependence, uncomplicated; I25.10 Atherosclerotic heart disease of native coronary artery without angina pectoris; E78.5 Hyperlipidemia, unspecified; E83.42 Hypomagnesemia; I25.2 Old myocardial infarction; Z79.84 Long term (current) use of oral hypoglycemic drugs; Z79.899 Other long term (current) drug therapy; Z86.73 Personal history of transient ischemic attack (TIA), and cerebral infarction without residual deficits
CPT/HCPCS: 0240U; 36415; 36416; 51701; 62270; 70450; 70491; 70551; 71045; 80048; 80053; 80076; 80202; 80306; 80307; 81003; 81015; 82140; 82945; 83036; 83735; 83880; 84157; 84484; 85025; 85379; 85610; 85730; 86780; 86803; 86850; 86900; 86901; 87040; 87070; 87077; 87086; 87149; 87186; 87205; 87389; 87529; 89051; 93005; 93010; 93880; 95712; 95819; 95957; 96365; 96366; 96375; C9113; J0290; J0692; J1815; J1953; J3411; J3475; J3490; Q9967

== ENCOUNTER 2020-10-05 22:02 | Emergency (ER) | payer MEDICARE ==
[2020-10-05 23:47] LABS: Amphetamine Not Detected (NotDetected); Barbiturates Screen Not Detected (NotDetected); Benzodiazepine Screen Not Detected (NotDetected); Cocaine Metabolite Screen Not Detected (NotDetected); Medtox Control Line Valid? VALID (VALID); Medtox Reader # READER 1; Methadone Not Detected (NotDetected); Methamphetamine Not Detected (NotDetected); Opiate Screen Not Detected (NotDetected); Oxycodone Screen Not Detected (NotDetected); Phencyclidine (PCP) Not Detected (NotDetected); THC/Cannabinoid Screen Not Detected (NotDetected); Tricyclic Screen Not Detected (NotDetected)
[2020-10-05 23:55] LABS: #Basophils 0.1 thou/uL (0.0-0.2); #Eosinphils 1.5 thou/uL (0.0-0.7); #Lymphocytes 4.2 thou/uL (1.20-3.40); #Monocytes 1.5 thou/uL (0.11-0.59); #Neutrophils 4.8 thou/uL (1.40-6.50); %Eosinophils 12.3 % (0.0-10.0); %Lymphocytes 34.6 % (21.0-51.0); %Monocytes 12.3 % (0.0-10.0); %Neutrophils 39.7 % (42.0-75.0); Hemoglobin 9.9 g/dL (14.0-18.0); Mean Corpuscular HGB CONC 31.7 g/dL (32.0-36.0); Mean Corpuscular Hemoglobin 24.5 pg (27.0-31.0); Mean Corpuscular Volume 77.2 fL (78.0-98.0); Mean Platelet Volume 8.4 fL (7.4-10.4); Platelet Count 225 thou/uL (130-400); RBC Distribution Width 16.6 % (11.5-14.5); Red Blood Cell (RBC) Count 4.02 mill/uL (4.70-6.10); White Blood Cell (WBC) Count 12.1 thou/uL (4.8-10.8)
[2020-10-06 00:15] LABS: ALT (SGPT) 13 U/L (8-55); AST (SGOT) 23 U/L (5-34); Albumin 3.3 g/dL (3.4-4.8); Alcohol Less than 10 mg/dL (Less than 10); Alkaline Phosphatase 121 U/L (40-110); Anion Gap 14 mmol/L (10-20); BUN (Urea Nitrogen) 13 mg/dL (8.4-25.7); Bilirubin, Total 0.4 mg/dL (0.2-1.2); Calc. Creatinine Clearance 0 mL/min (70-130); Calcium 8.7 mg/dL (7.8-10.44); Carbon Dioxide 19 mmol/L (23-31); Chloride 111 mmol/L (98-107); Globulin 3.5 g/dL (2.4-3.5); Glucose 106 mg/dL (80-115); Potassium 3.9 mmol/L (3.5-5.1); Protein, Total 6.8 g/dL (5.8-8.1); Sodium 140 mmol/L (136-145)
[2020-10-06 01:13] LABS: Bilirubin Negative (Negative); Blood, Urine Negative (Negative); Clarity Clear (Clear); Glucose, Urine (Dipstick) 150 mg/dL (Negative); Ketone, Urine Negative (Negative); Leukocyte Negative Leu/uL (Negative); Nitrite Negative (Negative); Protein, Urine (Dipstick) Negative (Neg-Trace); Specific Gravity, Urine 1.009 (1.002-1.036); Urobilinogen Normal mg/dL (Less than 2); pH, Urine 6.5 (5.0-9.0)
== END 2020-10-06 01:28 | disposition home or self-care (01) ==
LOC: ERS 22:02
DX: R53.1 Weakness (principal); I10 Essential (primary) hypertension; I25.2 Old myocardial infarction; Z79.84 Long term (current) use of oral hypoglycemic drugs; Z79.899 Other long term (current) drug therapy
CPT/HCPCS: 36415; 36416; 70450; 80053; 80306; 80307; 81003; 84484; 85025; 93005

== ENCOUNTER 2020-10-06 12:29 | Emergency (ER) | payer MEDICARE ==
[2020-10-06 13:52] LABS: #Basophils 0.1 thou/uL (0.0-0.2); #Eosinphils 1.1 thou/uL (0.0-0.7); #Lymphocytes 3.1 thou/uL (1.20-3.40); #Monocytes 1.1 thou/uL (0.11-0.59); #Neutrophils 5.6 thou/uL (1.40-6.50); %Basophils 0.7 % (0.0-1.0); %Eosinophils 10.1 % (0.0-10.0); %Lymphocytes 27.8 % (21.0-51.0); %Neutrophils 51.4 % (42.0-75.0); Hemoglobin 9.9 g/dL (14.0-18.0); Mean Corpuscular HGB CONC 31.2 g/dL (32.0-36.0); Mean Corpuscular Hemoglobin 24.3 pg (27.0-31.0); Mean Platelet Volume 8.4 fL (7.4-10.4); Platelet Count 211 thou/uL (130-400); RBC Distribution Width 16.7 % (11.5-14.5); Red Blood Cell (RBC) Count 4.06 mill/uL (4.70-6.10); White Blood Cell (WBC) Count 10.9 thou/uL (4.8-10.8)
[2020-10-06 14:02] LABS: ALT (SGPT) 10 U/L (8-55); AST (SGOT) 18 U/L (5-34); Albumin 3.3 g/dL (3.4-4.8); Alkaline Phosphatase 117 U/L (40-110); Anion Gap 12 mmol/L (10-20); BUN (Urea Nitrogen) 13 mg/dL (8.4-25.7); Bilirubin, Total 0.5 mg/dL (0.2-1.2); Calc. Creatinine Clearance 0 mL/min (70-130); Calcium 8.4 mg/dL (7.8-10.44); Carbon Dioxide 21 mmol/L (23-31); Chloride 111 mmol/L (98-107); Globulin 3.4 g/dL (2.4-3.5); Glucose 238 mg/dL (80-115); Potassium 3.6 mmol/L (3.5-5.1); Protein, Total 6.7 g/dL (5.8-8.1); Sodium 140 mmol/L (136-145)
== END 2020-10-06 15:55 | disposition home or self-care (01) ==
LOC: ERS 12:29
DX: M79.602 Pain in left arm (principal); D64.9 Anemia, unspecified; E11.9 Type 2 diabetes mellitus without complications; I10 Essential (primary) hypertension; I25.2 Old myocardial infarction; K21.9 Gastro-esophageal reflux disease without esophagitis; E78.00 Pure hypercholesterolemia, unspecified; Z86.73 Personal history of transient ischemic attack (TIA), and cerebral infarction without residual deficits; Z79.84 Long term (current) use of oral hypoglycemic drugs; Z79.899 Other long term (current) drug therapy
CPT/HCPCS: 36415; 71045; 80053; 84484; 85025; 93005

== ENCOUNTER 2020-10-07 16:45 | Inpatient (IN) | payer MEDICARE ==
[2020-10-07 17:24] LABS: #Basophils 0.1 thou/uL (0.0-0.2); #Lymphocytes 3.7 thou/uL (1.20-3.40); #Monocytes 1.1 thou/uL (0.11-0.59); #Neutrophils 7.2 thou/uL (1.40-6.50); %Eosinophils 7.8 % (0.0-10.0); %Lymphocytes 27.9 % (21.0-51.0); %Monocytes 8.3 % (0.0-10.0); %Neutrophils 54.9 % (42.0-75.0); Mean Corpuscular HGB CONC 31.7 g/dL (32.0-36.0); Mean Corpuscular Hemoglobin 24.3 pg (27.0-31.0); Mean Corpuscular Volume 76.4 fL (78.0-98.0); Mean Platelet Volume 8.5 fL (7.4-10.4); Platelet Count 218 thou/uL (130-400); RBC Distribution Width 16.6 % (11.5-14.5); Red Blood Cell (RBC) Count 4.14 mill/uL (4.70-6.10); White Blood Cell (WBC) Count 13.2 thou/uL (4.8-10.8)
[2020-10-07 17:39] LABS: ALT (SGPT) 14 U/L (8-55); AST (SGOT) 23 U/L (5-34); Albumin 3.5 g/dL (3.4-4.8); Alkaline Phosphatase 132 U/L (40-110); Anion Gap 17 mmol/L (10-20); BUN (Urea Nitrogen) 11 mg/dL (8.4-25.7); Bilirubin, Total 0.6 mg/dL (0.2-1.2); Calc. Creatinine Clearance 0 mL/min (70-130); Carbon Dioxide 18 mmol/L (23-31); Chloride 113 mmol/L (98-107); Globulin 3.8 g/dL (2.4-3.5); Glucose 92 mg/dL (80-115); Potassium 3.9 mmol/L (3.5-5.1); Protein, Total 7.3 g/dL (5.8-8.1); Sodium 144 mmol/L (136-145)
[2020-10-07 17:40] LABS: Magnesium 1.8 mg/dL (1.6-2.6)
[2020-10-07 19:12] LABS: Bilirubin Negative (Negative); Blood, Urine Negative (Negative); Clarity Clear (Clear); Glucose, Urine (Dipstick) Normal (Negative); Ketone, Urine Negative (Negative); Leukocyte Negative Leu/uL (Negative); Nitrite Negative (Negative); Protein, Urine (Dipstick) Negative (Neg-Trace); Specific Gravity, Urine 1.011 (1.002-1.036); Urobilinogen Normal mg/dL (Less than 2); pH, Urine 6.5 (5.0-9.0)
[2020-10-07 20:54] LABS: Lactic Acid 1.8 mmol/L (0.5-2.2)
[2020-10-07] MEDS ORDERED: Sodium Chloride 0.9% 1,000 ML IV SCH (22:30)
[2020-10-07 22:58] VITALS: BMI 32.5
[2020-10-08] MEDS ORDERED: Ondansetron PF 4 MG/2 ML Vial IVP PRN (00:49)
[2020-10-08] MEDS ORDERED: Ondansetron ODT 4 MG TAB PO PRN (00:49)
[2020-10-08] MEDS ORDERED: Acetaminophen 325 MG TAB PO PRN (00:49)
[2020-10-08] MEDS ORDERED: Potassium Chloride 20 MEQ TAB PO SCH (01:00)
[2020-10-08] MEDS ORDERED: Dextrose 5% in Water 1,000 ML IV PRN (01:00)
[2020-10-08] MEDS ORDERED: Dextrose 50% Abboject 50 ML SYRINGE SLOW IVP PRN (01:00)
[2020-10-08] MEDS ORDERED: Diazepam 5 MG TAB PO PRN (01:16)
[2020-10-08] MEDS ORDERED: Thiamine HCl 200 MG/2 ML VIAL IM SCH (01:30)
[2020-10-08] MEDS ORDERED: Diazepam 5 MG TAB PO SCH (01:30)
[2020-10-08 01:45] LABS: Phosphorus 2.8 mg/dL (2.3-4.7)
[2020-10-08] MEDS ORDERED: Sodium Chloride 0.9% 1,000 ML IV SCH (02:00)
[2020-10-08] MEDS: Piperacillin/Tazobactam 4.5 GM in Sodium Chloride 0.9% 100 ML IVPB SCH ×3 (02:39→17:30)
[2020-10-08] MEDS: Vancomycin 1.5 GM in Premix Bag 1 BAG IVPB SCH ×2 (03:09→15:37)
[2020-10-08 04:22] LABS: SARS-CoV-2 PCR by NAA Not Detected (NotDetected)
[2020-10-08 04:31] LABS: #Basophils 0.1 thou/uL (0.0-0.2); #Eosinphils 1.3 thou/uL (0.0-0.7); #Lymphocytes 3.6 thou/uL (1.20-3.40); #Monocytes 1.1 thou/uL (0.11-0.59); %Eosinophils 12.9 % (0.0-10.0); %Lymphocytes 35.9 % (21.0-51.0); %Monocytes 10.7 % (0.0-10.0); %Neutrophils 39.5 % (42.0-75.0); Hemoglobin 9.3 g/dL (14.0-18.0); Mean Corpuscular HGB CONC 31.6 g/dL (32.0-36.0); Mean Corpuscular Hemoglobin 24.2 pg (27.0-31.0); Mean Corpuscular Volume 76.6 fL (78.0-98.0); Mean Platelet Volume 8.4 fL (7.4-10.4); Platelet Count 212 thou/uL (130-400); RBC Distribution Width 16.9 % (11.5-14.5); Red Blood Cell (RBC) Count 3.83 mill/uL (4.70-6.10); White Blood Cell (WBC) Count 10.1 thou/uL (4.8-10.8)
[2020-10-08 04:51] LABS: Anion Gap 14 mmol/L (10-20); BUN (Urea Nitrogen) 11 mg/dL (8.4-25.7); Calc. Creatinine Clearance 90 mL/min (70-130); Calcium 7.9 mg/dL (7.8-10.44); Carbon Dioxide 19 mmol/L (23-31); Chloride 111 mmol/L (98-107); Glucose 220 mg/dL (80-115); Potassium 4.1 mmol/L (3.5-5.1); Sodium 140 mmol/L (136-145)
[2020-10-08 05:12] LABS: Thyroid Stimulating Hormone 2.3537 uIU/mL (0.35-4.94)
[2020-10-08] MEDS: HumaLOG 300 UNITS/3 ML VIAL SC PRN ×2 (05:38→11:31)
[2020-10-08] MEDS ORDERED: FLU VACC QS2020-21(6MOS UP)/PF 60 MCG/0.5 ML SYRINGE IM ONE (09:00)
[2020-10-08] MEDS: Sodium Chloride 0.9% 1,000 ML IV SCH (10:33)
[2020-10-08] MEDS: Aspirin 325 MG TAB PO SCH (10:35)
[2020-10-08] MEDS: Rifaximin 550 MG TAB PO SCH ×2 (10:35→20:10)
[2020-10-08] MEDS: Enoxaparin Sodium 40 MG/0.4 ML SYRINGE SC SCH (10:35)
[2020-10-08] MEDS: Folic Acid 1 MG TAB PO SCH (10:36)
[2020-10-08] MEDS: Multivitamin W/ Minerals 1 TAB PO SCH (10:36)
[2020-10-08] MEDS: levETIRAcetam 500 MG TAB PO SCH ×2 (10:36→20:10)
[2020-10-08] MEDS: DULoxetine 60 MG CAP PO SCH (20:10)
[2020-10-08] MEDS: Atorvastatin Calcium 10 MG TAB PO SCH (20:10)
[2020-10-09] MEDS: Piperacillin/Tazobactam 4.5 GM in Sodium Chloride 0.9% 100 ML IVPB SCH ×3 (01:36→17:04)
[2020-10-09] MEDS: Sodium Chloride 0.9% 1,000 ML IV SCH ×2 (01:37→17:04)
[2020-10-09] MEDS: Vancomycin 1.5 GM in Premix Bag 1 BAG IVPB SCH ×2 (02:30→14:41)
[2020-10-09] MEDS ORDERED: Diazepam 5 MG TAB PO PRN (04:00)
[2020-10-09 04:45] LABS: #Basophils 0.1 thou/uL (0.0-0.2); #Eosinphils 1.7 thou/uL (0.0-0.7); #Neutrophils 4.9 thou/uL (1.40-6.50); %Basophils 0.8 % (0.0-1.0); %Eosinophils 16.2 % (0.0-10.0); %Lymphocytes 27.7 % (21.0-51.0); %Monocytes 9.3 % (0.0-10.0); Mean Corpuscular HGB CONC 31.3 g/dL (32.0-36.0); Mean Corpuscular Hemoglobin 24.3 pg (27.0-31.0); Mean Corpuscular Volume 77.4 fL (78.0-98.0); Mean Platelet Volume 8.3 fL (7.4-10.4); Platelet Count 195 thou/uL (130-400); RBC Distribution Width 17.1 % (11.5-14.5); Red Blood Cell (RBC) Count 3.71 mill/uL (4.70-6.10); White Blood Cell (WBC) Count 10.7 thou/uL (4.8-10.8)
[2020-10-09 04:58] LABS: Anion Gap 12 mmol/L (10-20); BUN (Urea Nitrogen) 7 mg/dL (8.4-25.7); Calc. Creatinine Clearance 87 mL/min (70-130); Calcium 7.7 mg/dL (7.8-10.44); Carbon Dioxide 20 mmol/L (23-31); Chloride 113 mmol/L (98-107); Glucose 177 mg/dL (80-115); Potassium 3.7 mmol/L (3.5-5.1); Sodium 141 mmol/L (136-145)
[2020-10-09] MEDS: Aspirin 325 MG TAB PO SCH (09:04)
[2020-10-09] MEDS: Rifaximin 550 MG TAB PO SCH ×2 (09:04→21:37)
[2020-10-09] MEDS: Enoxaparin Sodium 40 MG/0.4 ML SYRINGE SC SCH (09:04)
[2020-10-09] MEDS: Multivitamin W/ Minerals 1 TAB PO SCH (09:04)
[2020-10-09] MEDS: levETIRAcetam 500 MG TAB PO SCH ×2 (09:04→21:37)
[2020-10-09] MEDS: Thiamine 100 MG TAB PO SCH (09:04)
[2020-10-09] MEDS: Folic Acid 1 MG TAB PO SCH (09:04)
[2020-10-09] MEDS: Magnesium Oxide 400 MG TAB PO SCH (09:05)
[2020-10-09] MEDS: HumaLOG 300 UNITS/3 ML VIAL SC PRN (12:55)
[2020-10-09 14:43] LABS: Vancomycin, Trough 13.2 ug/mL
[2020-10-09] MEDS: Atorvastatin Calcium 10 MG TAB PO SCH (21:37)
[2020-10-09] MEDS: DULoxetine 60 MG CAP PO SCH (21:37)
[2020-10-10] MEDS: Piperacillin/Tazobactam 4.5 GM in Sodium Chloride 0.9% 100 ML IVPB SCH ×2 (02:03→10:30)
[2020-10-10] MEDS ORDERED: VANCOMYCIN 1.75 GM/350 ML BAG 1.75 GM in Premix Bag 1 BAG IVPB SCH (03:00)
[2020-10-10 07:12] LABS: Iron 29 ug/dL (65-175); Iron Binding Capacity, Total 235 mcg/dL (261-462)
[2020-10-10] MEDS: Rifaximin 550 MG TAB PO SCH (08:31)
[2020-10-10] MEDS: levETIRAcetam 500 MG TAB PO SCH (08:31)
[2020-10-10] MEDS: Thiamine 100 MG TAB PO SCH (08:31)
[2020-10-10] MEDS: Magnesium Oxide 400 MG TAB PO SCH (08:32)
[2020-10-10] MEDS: Folic Acid 1 MG TAB PO SCH (08:32)
[2020-10-10] MEDS: Multivitamin W/ Minerals 1 TAB PO SCH (08:32)
[2020-10-10] MEDS: Enoxaparin Sodium 40 MG/0.4 ML SYRINGE SC SCH (08:32)
[2020-10-10] MEDS: Aspirin 325 MG TAB PO SCH (08:32)
[2020-10-10] MEDS: HumaLOG 300 UNITS/3 ML VIAL SC PRN (11:37)
[2020-10-10 12:12] VITALS: BP 149/82; TEMP 98.1
[2020-10-10] MEDS ORDERED: Ferrous Sulfate 325 MG TAB PO SCH (17:00)
== END 2020-10-10 15:07 | disposition home or self-care (01) | DRG 441 ==
LOC: ERS 16:45 → 2NO 21:41 → T4-B 10-09 18:29
PROVIDERS: ADMIT Student in an Organized Health Care Education/Training Program; ATTEND Internal Medicine
DX: K72.00 Acute and subacute hepatic failure without coma (principal); G93.41 Metabolic encephalopathy; E11.9 Type 2 diabetes mellitus without complications; I10 Essential (primary) hypertension; K21.9 Gastro-esophageal reflux disease without esophagitis; E78.00 Pure hypercholesterolemia, unspecified; D64.9 Anemia, unspecified; E86.0 Dehydration; E78.5 Hyperlipidemia, unspecified; F10.11 Alcohol abuse, in remission; I35.0 Nonrheumatic aortic (valve) stenosis; G40.909 Epilepsy, unspecified, not intractable, without status epilepticus; Z20.822 Contact with and (suspected) exposure to COVID-19; K70.30 Alcoholic cirrhosis of liver without ascites; I25.2 Old myocardial infarction; Z86.73 Personal history of transient ischemic attack (TIA), and cerebral infarction without residual deficits; Z79.82 Long term (current) use of aspirin; Z87.11 Personal history of peptic ulcer disease
CPT/HCPCS: 36415; 36416; 70450; 71045; 72125; 76705; 80048; 80053; 80202; 80306; 80307; 81003; 82010; 82140; 82550; 82607; 82728; 83540; 83550; 83605; 83735; 84100; 84443; 84484; 85025; 87040; 87635; 93005; 93306; J1650; J1815; J2543; J3370; J3411; J3475; J3490; U0003; U0005

== ENCOUNTER 2020-10-27 23:59 | Inpatient (IN) | payer MEDICARE ==
[2020-10-28] MEDS ORDERED: Lorazepam 2 MG/ML VIAL ONE ×2 (00:44→09:45)
[2020-10-28 00:51] LABS: INR-International Normal Ratio 1.3; PTT 32.7 sec (22.9-36.1); Prothrombin Time 16.2 sec (12.0-14.7)
[2020-10-28 00:54] LABS: Acetaminophen Less than 6.0 mcg/mL (10.0-30.0); Alcohol Less than 10 mg/dL (Less than 10); Salicylate Less than 8.0 mg/dL (15.0-30.0)
[2020-10-28 00:56] LABS: ALT (SGPT) 18 U/L (8-55); AST (SGOT) 35 U/L (5-34); Albumin 3.2 g/dL (3.4-4.8); Alkaline Phosphatase 106 U/L (40-110); Anion Gap 16 mmol/L (10-20); BUN (Urea Nitrogen) 9 mg/dL (8.4-25.7); Bilirubin, Total 0.6 mg/dL (0.2-1.2); Calc. Creatinine Clearance 0 mL/min (70-130); Calcium 8.6 mg/dL (7.8-10.44); Carbon Dioxide 16 mmol/L (23-31); Chloride 110 mmol/L (98-107); Globulin 3.5 g/dL (2.4-3.5); Glucose 141 mg/dL (80-115); Potassium 3.6 mmol/L (3.5-5.1); Protein, Total 6.7 g/dL (5.8-8.1); Sodium 138 mmol/L (136-145)
[2020-10-28 00:57] LABS: Mean Corpuscular HGB CONC 30.7 g/dL (32.0-36.0); Mean Corpuscular Hemoglobin 25.2 pg (27.0-31.0); Mean Corpuscular Volume 82.2 fL (78.0-98.0); Platelet Count 210 thou/uL (130-400); Red Blood Cell (RBC) Count 3.98 mill/uL (4.70-6.10); White Blood Cell (WBC) Count 9.6 thou/uL (4.8-10.8)
[2020-10-28 01:05] LABS: #Basophils 0.1 thou/uL (0.0-0.2); #Eosinphils 1.2 thou/uL (0.0-0.7); #Lymphocytes 2.8 thou/uL (1.20-3.40); #Monocytes 1.2 thou/uL (0.11-0.59); #Neutrophils 4.3 thou/uL (1.40-6.50); %Basophils 0.9 % (0.0-1.0); %Eosinophils 12.2 % (0.0-10.0); %Lymphocytes 29.3 % (21.0-51.0); %Monocytes 12.6 % (0.0-10.0); Mean Platelet Volume 8.4 fL (7.4-10.4); RBC Distribution Width 23.9 % (11.5-14.5)
[2020-10-28] MEDS ORDERED: Dextrose 5% in Water 1,000 ML IV PRN (02:58)
[2020-10-28] MEDS ORDERED: Dextrose 50% Abboject 50 ML SYRINGE SLOW IVP PRN (02:58)
[2020-10-28] MEDS: HumaLOG 300 UNITS/3 ML VIAL SC PRN (05:54)
[2020-10-28] MEDS: Famotidine/PF 20 mg/2ml Vial SLOW IVP SCH ×2 (09:52→22:42)
[2020-10-28] MEDS: Enoxaparin Sodium 40 MG/0.4 ML SYRINGE SC SCH (09:53)
[2020-10-28] MEDS ORDERED: Iopamidol-370 76% 500 ML 1 ML ONE (10:07)
[2020-10-28] MEDS ORDERED: Succinylcholine 200 MG/10 ml SYRINGE FS ONE (10:58)
[2020-10-28] MEDS ORDERED: Lorazepam 2 MG/ML VIAL SLOW IVP SCH (12:00)
[2020-10-28 12:29] LABS: SARS-CoV-2 PCR by NAA Not Detected (NotDetected)
[2020-10-28] MEDS: Lorazepam 2 MG/ML VIAL SLOW IVP PRN (18:09)
[2020-10-28] MEDS: Rifaximin 550 MG TAB PER TUBE SCH (22:42)
[2020-10-29] MEDS: Lorazepam 2 MG/ML VIAL SLOW IVP PRN ×6 (01:18→22:09)
[2020-10-29 05:46] LABS: #Basophils 0.1 thou/uL (0.0-0.2); #Eosinphils 0.9 thou/uL (0.0-0.7); #Lymphocytes 3.3 thou/uL (1.20-3.40); #Monocytes 1.4 thou/uL (0.11-0.59); #Neutrophils 6.1 thou/uL (1.40-6.50); %Basophils 0.8 % (0.0-1.0); %Eosinophils 7.7 % (0.0-10.0); %Lymphocytes 28.2 % (21.0-51.0); %Monocytes 11.9 % (0.0-10.0); %Neutrophils 51.4 % (42.0-75.0); Hemoglobin 10.4 g/dL (14.0-18.0); Mean Corpuscular HGB CONC 30.2 g/dL (32.0-36.0); Mean Corpuscular Hemoglobin 25.1 pg (27.0-31.0); Mean Corpuscular Volume 83.1 fL (78.0-98.0); Mean Platelet Volume 8.8 fL (7.4-10.4); Platelet Count 225 thou/uL (130-400); RBC Distribution Width 24.8 % (11.5-14.5); Red Blood Cell (RBC) Count 4.13 mill/uL (4.70-6.10); White Blood Cell (WBC) Count 11.8 thou/uL (4.8-10.8)
[2020-10-29 05:48] LABS: Anion Gap 12 mmol/L (10-20); BUN (Urea Nitrogen) 11 mg/dL (8.4-25.7); Calc. Creatinine Clearance 93 mL/min (70-130); Calcium 8.4 mg/dL (7.8-10.44); Carbon Dioxide 20 mmol/L (23-31); Chloride 114 mmol/L (98-107); Glucose 148 mg/dL (80-115); Potassium 3.4 mmol/L (3.5-5.1); Sodium 143 mmol/L (136-145)
[2020-10-29] MEDS: Rifaximin 550 MG TAB PER TUBE SCH ×2 (09:30→21:21)
[2020-10-29] MEDS: Thiamine 100 MG TAB PER TUBE SCH (09:30)
[2020-10-29] MEDS: Enoxaparin Sodium 40 MG/0.4 ML SYRINGE SC SCH (09:30)
[2020-10-29] MEDS: Famotidine/PF 20 mg/2ml Vial SLOW IVP SCH ×2 (09:30→21:21)
[2020-10-30] MEDS: Lorazepam 2 MG/ML VIAL SLOW IVP PRN ×3 (04:48→12:23)
[2020-10-30 08:43] LABS: #Basophils 0.1 thou/uL (0.0-0.2); #Eosinphils 0.1 thou/uL (0.0-0.7); #Lymphocytes 2.2 thou/uL (1.20-3.40); #Monocytes 1.6 thou/uL (0.11-0.59); #Neutrophils 11.5 thou/uL (1.40-6.50); %Basophils 0.8 % (0.0-1.0); %Eosinophils 0.4 % (0.0-10.0); %Monocytes 10.6 % (0.0-10.0); %Neutrophils 74.1 % (42.0-75.0); Hemoglobin 11.2 g/dL (14.0-18.0); Mean Corpuscular HGB CONC 31.2 g/dL (32.0-36.0); Mean Corpuscular Hemoglobin 26.2 pg (27.0-31.0); Mean Platelet Volume 8.3 fL (7.4-10.4); Platelet Count 243 thou/uL (130-400); RBC Distribution Width 25.2 % (11.5-14.5); Red Blood Cell (RBC) Count 4.28 mill/uL (4.70-6.10); White Blood Cell (WBC) Count 15.5 thou/uL (4.8-10.8)
[2020-10-30 09:07] LABS: ALT (SGPT) 31 U/L (8-55); AST (SGOT) 95 U/L (5-34); Albumin 3.5 g/dL (3.4-4.8); Alkaline Phosphatase 97 U/L (40-110); Anion Gap 18 mmol/L (10-20); BUN (Urea Nitrogen) 18 mg/dL (8.4-25.7); Bilirubin, Total 1.6 mg/dL (0.2-1.2); Calc. Creatinine Clearance 76 mL/min (70-130); Calcium 8.7 mg/dL (7.8-10.44); Carbon Dioxide 18 mmol/L (23-31); Chloride 116 mmol/L (98-107); Glucose 143 mg/dL (80-115); Potassium 3.7 mmol/L (3.5-5.1); Protein, Total 7.5 g/dL (5.8-8.1); Sodium 148 mmol/L (136-145)
[2020-10-30] MEDS: Famotidine/PF 20 mg/2ml Vial SLOW IVP SCH ×2 (09:21→20:45)
[2020-10-30] MEDS: Enoxaparin Sodium 40 MG/0.4 ML SYRINGE SC SCH (09:21)
[2020-10-30] MEDS: Rifaximin 550 MG TAB PER TUBE SCH ×2 (09:21→20:45)
[2020-10-30] MEDS: Thiamine 100 MG TAB PER TUBE SCH (09:21)
[2020-10-30 09:42] LABS: Anisocytosis SLIGHT = 6-15 cells (100X) (0-5/hpf); Hypochromia SLIGHT = 6-15 cells (100X) (0-5/hpf); MDiff Complete? YES; Ovalocytes SLIGHT = 2-5 cells (100X) (0-1/hpf); Platelet Morphology Comment Appears Adequate; Polychromasia SLIGHT = 2-3 cells (100X) (0-2/hpf)
[2020-10-30] MEDS: Thiamine HCl 200 MG/2 ML VIAL SLOW IVP SCH (17:50)
[2020-10-31] MEDS: Lorazepam 2 MG/ML VIAL SLOW IVP PRN ×4 (00:15→20:47)
[2020-10-31 04:06] LABS: #Basophils 0.1 thou/uL (0.0-0.2); #Eosinphils 0.6 thou/uL (0.0-0.7); #Lymphocytes 2.8 thou/uL (1.20-3.40); #Monocytes 1.6 thou/uL (0.11-0.59); #Neutrophils 7.1 thou/uL (1.40-6.50); %Basophils 0.8 % (0.0-1.0); %Eosinophils 4.6 % (0.0-10.0); %Lymphocytes 23.2 % (21.0-51.0); %Monocytes 13.1 % (0.0-10.0); %Neutrophils 58.4 % (42.0-75.0); Anisocytosis SLIGHT = 6-15 cells (100X) (0-5/hpf); Hemoglobin 10.8 g/dL (14.0-18.0); MDiff Complete? YES; Mean Corpuscular HGB CONC 31.3 g/dL (32.0-36.0); Mean Corpuscular Hemoglobin 26.3 pg (27.0-31.0); Mean Platelet Volume 9.2 fL (7.4-10.4); Platelet Count 179 thou/uL (130-400); Platelet Morphology Comment Appears Adequate; RBC Distribution Width 25.1 % (11.5-14.5); Red Blood Cell (RBC) Count 4.09 mill/uL (4.70-6.10); White Blood Cell (WBC) Count 12.1 thou/uL (4.8-10.8)
[2020-10-31 04:11] LABS: ALT (SGPT) 38 U/L (8-55); AST (SGOT) 142 U/L (5-34); Albumin 3.1 g/dL (3.4-4.8); Alkaline Phosphatase 88 U/L (40-110); Anion Gap 11 mmol/L (10-20); BUN (Urea Nitrogen) 21 mg/dL (8.4-25.7); Bilirubin, Total 1.8 mg/dL (0.2-1.2); Calc. Creatinine Clearance 88 mL/min (70-130); Calcium 8.4 mg/dL (7.8-10.44); Carbon Dioxide 21 mmol/L (23-31); Chloride 118 mmol/L (98-107); Globulin 3.7 g/dL (2.4-3.5); Glucose 167 mg/dL (80-115); Potassium 3.4 mmol/L (3.5-5.1); Protein, Total 6.8 g/dL (5.8-8.1); Sodium 147 mmol/L (136-145)
[2020-10-31] MEDS: Enoxaparin Sodium 40 MG/0.4 ML SYRINGE SC SCH (09:22)
[2020-10-31] MEDS: Rifaximin 550 MG TAB PER TUBE SCH ×2 (09:22→20:48)
[2020-10-31] MEDS: Famotidine/PF 20 mg/2ml Vial SLOW IVP SCH (09:22)
[2020-10-31] MEDS: Famotidine 20 MG TAB PER TUBE SCH ×2 (09:43→20:47)
[2020-10-31] MEDS: Dextrose 5 %-0.45 % NaCl 1,000 ML IV SCH ×2 (09:53→18:47)
[2020-10-31] MEDS: Thiamine HCl 200 MG/2 ML VIAL SLOW IVP SCH (16:31)
[2020-10-31] MEDS: HumaLOG 300 UNITS/3 ML VIAL SC PRN (17:15)
[2020-11-01 05:52] LABS: #Basophils 0.1 thou/uL (0.0-0.2); #Eosinphils 1.1 thou/uL (0.0-0.7); #Lymphocytes 2.5 thou/uL (1.20-3.40); #Monocytes 1.5 thou/uL (0.11-0.59); #Neutrophils 6.4 thou/uL (1.40-6.50); %Basophils 0.7 % (0.0-1.0); %Eosinophils 9.7 % (0.0-10.0); %Lymphocytes 21.4 % (21.0-51.0); %Monocytes 12.8 % (0.0-10.0); %Neutrophils 55.4 % (42.0-75.0); ALT (SGPT) 53 U/L (8-55); AST (SGOT) 157 U/L (5-34); Albumin 2.8 g/dL (3.4-4.8); Alkaline Phosphatase 89 U/L (40-110); Anion Gap 15 mmol/L (10-20); BUN (Urea Nitrogen) 15 mg/dL (8.4-25.7); Bilirubin, Total 1.5 mg/dL (0.2-1.2); Calc. Creatinine Clearance 91 mL/min (70-130); Calcium 7.9 mg/dL (7.8-10.44); Carbon Dioxide 17 mmol/L (23-31); Chloride 117 mmol/L (98-107); Globulin 3.6 g/dL (2.4-3.5); Glucose 187 mg/dL (80-115); Hemoglobin 10.5 g/dL (14.0-18.0); Mean Corpuscular HGB CONC 31.9 g/dL (32.0-36.0); Mean Corpuscular Volume 84.5 fL (78.0-98.0); Mean Platelet Volume 9.5 fL (7.4-10.4); Platelet Count 174 thou/uL (130-400); Potassium 3.5 mmol/L (3.5-5.1); Protein, Total 6.4 g/dL (5.8-8.1); RBC Distribution Width 24.7 % (11.5-14.5); Red Blood Cell (RBC) Count 3.91 mill/uL (4.70-6.10); Sodium 145 mmol/L (136-145); White Blood Cell (WBC) Count 11.5 thou/uL (4.8-10.8)
[2020-11-01] MEDS: Dextrose 5 %-0.45 % NaCl 1,000 ML IV SCH ×2 (06:21→15:11)
[2020-11-01] MEDS: Enoxaparin Sodium 40 MG/0.4 ML SYRINGE SC SCH (08:25)
[2020-11-01] MEDS: Famotidine 20 MG TAB PER TUBE SCH ×2 (08:26→22:48)
[2020-11-01] MEDS: Rifaximin 550 MG TAB PER TUBE SCH ×2 (08:26→22:48)
[2020-11-01] MEDS: Lorazepam 2 MG/ML VIAL SLOW IVP PRN ×4 (10:44→23:00)
[2020-11-01] MEDS: HumaLOG 300 UNITS/3 ML VIAL SC PRN (17:23)
[2020-11-01] MEDS: Thiamine HCl 200 MG/2 ML VIAL SLOW IVP SCH (17:23)
[2020-11-02] MEDS: Lorazepam 2 MG/ML VIAL SLOW IVP PRN ×2 (00:57→22:23)
[2020-11-02] MEDS ORDERED: Lorazepam 2 MG/ML VIAL SLOW IVP SCH (02:00)
[2020-11-02] MEDS: Dextrose 5 %-0.45 % NaCl 1,000 ML IV SCH ×3 (02:09→18:12)
[2020-11-02 04:03] LABS: #Basophils 0.1 thou/uL (0.0-0.2); #Eosinphils 0.7 thou/uL (0.0-0.7); #Lymphocytes 2.5 thou/uL (1.20-3.40); #Monocytes 1.6 thou/uL (0.11-0.59); #Neutrophils 6.5 thou/uL (1.40-6.50); %Basophils 0.6 % (0.0-1.0); %Eosinophils 6.5 % (0.0-10.0); %Monocytes 13.7 % (0.0-10.0); %Neutrophils 57.1 % (42.0-75.0); Mean Corpuscular HGB CONC 32.9 g/dL (32.0-36.0); Mean Corpuscular Hemoglobin 27.4 pg (27.0-31.0); Mean Corpuscular Volume 83.3 fL (78.0-98.0); Mean Platelet Volume 9.5 fL (7.4-10.4); Platelet Count 160 thou/uL (130-400); RBC Distribution Width 24.3 % (11.5-14.5); Red Blood Cell (RBC) Count 3.64 mill/uL (4.70-6.10); White Blood Cell (WBC) Count 11.4 thou/uL (4.8-10.8)
[2020-11-02 04:19] LABS: ALT (SGPT) 53 U/L (8-55); AST (SGOT) 105 U/L (5-34); Albumin 2.7 g/dL (3.4-4.8); Alkaline Phosphatase 87 U/L (40-110); Anion Gap 11 mmol/L (10-20); BUN (Urea Nitrogen) 6 mg/dL (8.4-25.7); Bilirubin, Total 1.4 mg/dL (0.2-1.2); Calc. Creatinine Clearance 98 mL/min (70-130); Calcium 7.4 mg/dL (7.8-10.44); Carbon Dioxide 17 mmol/L (23-31); Chloride 115 mmol/L (98-107); Globulin 3.3 g/dL (2.4-3.5); Glucose 199 mg/dL (80-115); Potassium 3.1 mmol/L (3.5-5.1); Sodium 140 mmol/L (136-145)
[2020-11-02] MEDS: HumaLOG 300 UNITS/3 ML VIAL SC PRN ×2 (05:38→12:31)
[2020-11-02] MEDS: Famotidine 20 MG TAB PER TUBE SCH ×2 (10:15→20:53)
[2020-11-02] MEDS: Rifaximin 550 MG TAB PER TUBE SCH ×2 (10:15→20:53)
[2020-11-02] MEDS: Enoxaparin Sodium 40 MG/0.4 ML SYRINGE SC SCH (10:19)
[2020-11-02] MEDS ORDERED: Electrolyte Replacement Protocol FS PRN (11:00)
[2020-11-02] MEDS ORDERED: Potassium Chloride 20 MEQ TAB PO SCH (11:15)
[2020-11-02] MEDS ORDERED: Sodium Bicarbonate Tab 325 MG TAB PER TUBE PRN (13:00)
[2020-11-02] MEDS ORDERED: Pancrelipase DR 12,000 1 CAP FS PRN (13:00)
[2020-11-02] MEDS: Thiamine HCl 200 MG/2 ML VIAL SLOW IVP SCH (18:04)
[2020-11-03 04:43] LABS: Anion Gap 11 mmol/L (10-20); BUN (Urea Nitrogen) 5 mg/dL (8.4-25.7); Calc. Creatinine Clearance 108 mL/min (70-130); Calcium 7.9 mg/dL (7.8-10.44); Carbon Dioxide 17 mmol/L (23-31); Chloride 113 mmol/L (98-107); Glucose 200 mg/dL (80-115); Sodium 138 mmol/L (136-145)
[2020-11-03 04:45] LABS: Potassium 2.6 mmol/L (3.5-5.1)
[2020-11-03 05:04] LABS: #Basophils 0.1 thou/uL (0.0-0.2); #Eosinphils 0.4 thou/uL (0.0-0.7); #Lymphocytes 2.4 thou/uL (1.20-3.40); #Monocytes 1.6 thou/uL (0.11-0.59); #Neutrophils 9.2 thou/uL (1.40-6.50); %Basophils 0.7 % (0.0-1.0); %Eosinophils 3.1 % (0.0-10.0); %Lymphocytes 17.3 % (21.0-51.0); %Monocytes 11.5 % (0.0-10.0); %Neutrophils 67.4 % (42.0-75.0); Anisocytosis SLIGHT = 6-15 cells (100X) (0-5/hpf); Hemoglobin 10.3 g/dL (14.0-18.0); MDiff Complete? YES; Mean Corpuscular Hemoglobin 26.3 pg (27.0-31.0); Mean Corpuscular Volume 84.9 fL (78.0-98.0); Mean Platelet Volume 9.5 fL (7.4-10.4); Platelet Count 175 thou/uL (130-400); RBC Distribution Width 24.3 % (11.5-14.5); White Blood Cell (WBC) Count 13.6 thou/uL (4.8-10.8)
[2020-11-03] MEDS: Dextrose 5 %-0.45 % NaCl 1,000 ML IV SCH ×2 (10:20→18:10)
[2020-11-03] MEDS: Potassium Bicarbonate/Cit Ac 20 MEQ TAB PER TUBE SCH ×2 (10:21→13:18)
[2020-11-03] MEDS: Enoxaparin Sodium 40 MG/0.4 ML SYRINGE SC SCH (10:22)
[2020-11-03] MEDS: Rifaximin 550 MG TAB PER TUBE SCH ×2 (10:22→21:13)
[2020-11-03] MEDS: Famotidine 20 MG TAB PER TUBE SCH ×2 (10:22→21:13)
[2020-11-03] MEDS: HumaLOG 300 UNITS/3 ML VIAL SC PRN ×2 (10:43→18:18)
[2020-11-03] MEDS: Lorazepam 2 MG/ML VIAL SLOW IVP PRN ×4 (16:32→23:32)
[2020-11-03] MEDS: Thiamine HCl 200 MG/2 ML VIAL SLOW IVP SCH (18:39)
[2020-11-03] MEDS: Morphine 4 MG/ML VIAL SLOW IVP PRN ×2 (18:55→23:56)
[2020-11-03 19:52] LABS: Potassium 3.8 mmol/L (3.5-5.1)
[2020-11-03] MEDS ORDERED: Acetaminophen 325 MG Suppository PR SCH (23:45)
[2020-11-03 23:50] LABS: Actual Bicarbonate (HCO3a) 20.3 mEq/L (22-28); Base Excess (BEa) -1.7 mEq/L (-2.0 to +3.0); CO2 Tension 27.1 mmHg (35.0-45.0); Calcium, Ionized (arterial) 1.12 mmol/L (1.12-1.30); Carboxyhemoglobin (COHb) 1.3 gm% (0.0-3.0); Hemoglobin (Hb) 12.5 g/dL (14.0-18.0); O2 Tension (PaO2), arterial 61.5 mmHg (> 80.0); Potassium - ABG Lab 2.93 mmol/L (3.70-5.30); pH, Arterial 7.49 (7.35-7.45)
[2020-11-03 23:55] LABS: ALV-art Gradient 104.265 mmHg (0-20); Puncture Site LRA
[2020-11-03] MEDS ORDERED: Sodium Chloride 0.9% 500 ML IV SCH (23:59)
[2020-11-04] MEDS ORDERED: Potassium Chloride 40 MEQ in Sodium Chloride 0.9% 250 ML 250 ML IVPB SCH (00:15)
[2020-11-04 00:27] LABS: Hemoglobin 11.9 g/dL (14.0-18.0); Lactic Acid 3.1 mmol/L (0.5-2.2); Mean Corpuscular HGB CONC 32.1 g/dL (32.0-36.0); Mean Corpuscular Hemoglobin 27.2 pg (27.0-31.0); Mean Corpuscular Volume 84.7 fL (78.0-98.0); Mean Platelet Volume 8.5 fL (7.4-10.4); Platelet Count 241 thou/uL (130-400); RBC Distribution Width 24.6 % (11.5-14.5); Red Blood Cell (RBC) Count 4.37 mill/uL (4.70-6.10)
[2020-11-04 00:31] LABS: ALT (SGPT) 39 U/L (8-55); AST (SGOT) 48 U/L (5-34); Albumin 2.9 g/dL (3.4-4.8); Alkaline Phosphatase 108 U/L (40-110); Anion Gap 14 mmol/L (10-20); BUN (Urea Nitrogen) 5 mg/dL (8.4-25.7); Bilirubin, Total 1.3 mg/dL (0.2-1.2); Calc. Creatinine Clearance 76 mL/min (70-130); Calcium 8.1 mg/dL (7.8-10.44); Carbon Dioxide 18 mmol/L (23-31); Chloride 108 mmol/L (98-107); Globulin 3.8 g/dL (2.4-3.5); Glucose 235 mg/dL (80-115); Magnesium 1.7 mg/dL (1.6-2.6); Potassium 3.1 mmol/L (3.5-5.1); Protein, Total 6.7 g/dL (5.8-8.1); Sodium 137 mmol/L (136-145)
[2020-11-04 00:42] LABS: #Basophils 0.1 thou/uL (0.0-0.2); #Eosinphils 0.3 thou/uL (0.0-0.7); #Lymphocytes 2.8 thou/uL (1.20-3.40); #Monocytes 1.3 thou/uL (0.11-0.59); #Neutrophils 11.7 thou/uL (1.40-6.50); %Basophils 0.6 % (0.0-1.0); %Eosinophils 1.9 % (0.0-10.0); %Lymphocytes 17.2 % (21.0-51.0); %Monocytes 8.2 % (0.0-10.0); %Neutrophils 72.1 % (42.0-75.0); Anisocytosis MODERATE=16-30 cells (100X) (0-5/hpf); MDiff Complete? YES; Polychromasia SLIGHT = 2-3 cells (100X) (0-2/hpf); White Blood Cell (WBC) Count 16.2 thou/uL (4.8-10.8)
[2020-11-04] MEDS ORDERED: guaiFENesin ER 600 MG TAB PO SCH (00:45)
[2020-11-04] MEDS ORDERED: Cefepime 1 GM in Sodium Chloride 0.9% 100 ML IVPB SCH (01:00)
[2020-11-04] MEDS ORDERED: Vancomycin 1 GM in Premix Bag 1 BAG IVPB SCH (02:00)
[2020-11-04] MEDS: D5 1/2 NS w/20 mEq KCL 1,000 ML IV SCH ×3 (02:33→17:32)
[2020-11-04] MEDS: Piperacillin/Tazobactam 3.375 GM in Sodium Chloride 0.9% 100 ML IVPB SCH ×3 (03:22→17:27)
[2020-11-04 03:56] LABS: Anion Gap 13 mmol/L (10-20); BUN (Urea Nitrogen) 7 mg/dL (8.4-25.7); Calc. Creatinine Clearance 56 mL/min (70-130); Calcium 7.8 mg/dL (7.8-10.44); Carbon Dioxide 19 mmol/L (23-31); Chloride 108 mmol/L (98-107); Glucose 249 mg/dL (80-115); Magnesium 1.7 mg/dL (1.6-2.6); Potassium 3.1 mmol/L (3.5-5.1); Sodium 137 mmol/L (136-145)
[2020-11-04 04:30] LABS: #Basophils 0.1 thou/uL (0.0-0.2); #Eosinphils 0.1 thou/uL (0.0-0.7); #Lymphocytes 1.3 thou/uL (1.20-3.40); #Monocytes 0.4 thou/uL (0.11-0.59); #Neutrophils 4.3 thou/uL (1.40-6.50); %Basophils 0.9 % (0.0-1.0); %Monocytes 6.4 % (0.0-10.0); %Neutrophils 69.8 % (42.0-75.0); Anisocytosis MODERATE=16-30 cells (100X) (0-5/hpf); Hemoglobin 10.9 g/dL (14.0-18.0); MDiff Complete? YES; Mean Corpuscular HGB CONC 32.3 g/dL (32.0-36.0); Mean Corpuscular Hemoglobin 27.7 pg (27.0-31.0); Mean Corpuscular Volume 85.6 fL (78.0-98.0); Mean Platelet Volume 9.8 fL (7.4-10.4); Platelet Count 185 thou/uL (130-400); Platelet Morphology Comment Appears Adequate; RBC Distribution Width 24.8 % (11.5-14.5); Red Blood Cell (RBC) Count 3.93 mill/uL (4.70-6.10); White Blood Cell (WBC) Count 6.2 thou/uL (4.8-10.8)
[2020-11-04] MEDS: HumaLOG 300 UNITS/3 ML VIAL SC PRN (04:58)
[2020-11-04] MEDS: Vancomycin 1 GM in Premix Bag 1 BAG IVPB SCH ×3 (06:02→20:34)
[2020-11-04] MEDS ORDERED: Sodium Chloride 0.9% 1,000 ML IV SCH ×2 (08:45→16:45)
[2020-11-04] MEDS: Magnesium 2 GM/50 ML 2 GM in Premix Bag 1 BAG IVPB SCH (10:00)
[2020-11-04] MEDS: Enoxaparin Sodium 40 MG/0.4 ML SYRINGE SC SCH (10:01)
[2020-11-04] MEDS: Rifaximin 550 MG TAB PER TUBE SCH ×2 (10:02→20:34)
[2020-11-04] MEDS: guaiFENesin ER 600 MG TAB PO SCH ×2 (10:02→20:34)
[2020-11-04] MEDS: Famotidine 20 MG TAB PER TUBE SCH ×2 (10:02→20:34)
[2020-11-04 11:13] LABS: Bilirubin Negative (Negative); Blood, Urine 1+ (Negative); Clarity Turbid (Clear); Glucose, Urine (Dipstick) 100 mg/dL (Negative); Ketone, Urine Negative (Negative); Leukocyte 500 Leu/uL (Negative); Nitrite Negative (Negative); Protein, Urine (Dipstick) 20 mg/dL (Neg-Trace); RBC/HPF Greater than 50 HPF (0-3); Specific Gravity, Urine 1.013 (1.002-1.036); Squamous Epithelial 0-3 HPF (0-3); Urobilinogen Normal mg/dL (Less than 2); WBC/HPF 21-50 HPF (0-3)
[2020-11-04 11:14] LABS: Bacteria/HPF 1+ HPF (None Seen); Yeast-Budding 2+ HPF (None Seen)
[2020-11-04 11:15] LABS: Urine Culture Reflex Yes Yes
[2020-11-04] MEDS: Lorazepam 2 MG/ML VIAL SLOW IVP PRN ×3 (13:48→20:39)
[2020-11-04] MEDS ORDERED: levETIRAcetam 500 MG TAB PO SCH (15:45)
[2020-11-04] MEDS: Thiamine HCl 200 MG/2 ML VIAL SLOW IVP SCH (17:26)
[2020-11-04] MEDS: Ferrous Sulfate 325 MG TAB PO SCH (17:28)
[2020-11-04 19:01] LABS: Lactic Acid 3.3 mmol/L (0.5-2.2)
[2020-11-04] MEDS: levETIRAcetam 500 MG TAB PO SCH (20:34)
[2020-11-04] MEDS: DULoxetine 60 MG CAP PO SCH (20:34)
[2020-11-04] MEDS ORDERED: Sodium Chloride 0.9% 500 ML IV SCH (22:45)
[2020-11-05] MEDS: Sodium Chloride 0.9% 1,000 ML IV SCH ×4 (00:30→22:56)
[2020-11-05] MEDS: Piperacillin/Tazobactam 3.375 GM in Sodium Chloride 0.9% 100 ML IVPB SCH ×3 (01:06→17:08)
[2020-11-05] MEDS: Vancomycin 1 GM in Premix Bag 1 BAG IVPB SCH ×3 (05:21→21:25)
[2020-11-05 06:53] LABS: #Basophils 0.1 thou/uL (0.0-0.2); #Eosinphils 0.6 thou/uL (0.0-0.7); #Lymphocytes 2.1 thou/uL (1.20-3.40); #Monocytes 1.5 thou/uL (0.11-0.59); #Neutrophils 6.7 thou/uL (1.40-6.50); %Basophils 0.6 % (0.0-1.0); %Eosinophils 5.8 % (0.0-10.0); %Lymphocytes 19.1 % (21.0-51.0); %Monocytes 13.7 % (0.0-10.0); %Neutrophils 60.7 % (42.0-75.0); Hemoglobin 9.2 g/dL (14.0-18.0); Mean Corpuscular HGB CONC 31.2 g/dL (32.0-36.0); Mean Corpuscular Hemoglobin 26.8 pg (27.0-31.0); Mean Corpuscular Volume 85.9 fL (78.0-98.0); Mean Platelet Volume 9.3 fL (7.4-10.4); Platelet Count 142 thou/uL (130-400); RBC Distribution Width 24.7 % (11.5-14.5); Red Blood Cell (RBC) Count 3.41 mill/uL (4.70-6.10); White Blood Cell (WBC) Count 10.4 thou/uL (4.8-10.8)
[2020-11-05 07:12] LABS: Anion Gap 11 mmol/L (10-20); BUN (Urea Nitrogen) 13 mg/dL (8.4-25.7); Calc. Creatinine Clearance 93 mL/min (70-130); Calcium 7.3 mg/dL (7.8-10.44); Carbon Dioxide 18 mmol/L (23-31); Chloride 111 mmol/L (98-107); Glucose 162 mg/dL (80-115); Potassium 3.2 mmol/L (3.5-5.1); Sodium 137 mmol/L (136-145)
[2020-11-05 07:15] LABS: Vancomycin, Trough 32.3 ug/mL
[2020-11-05] MEDS: guaiFENesin ER 600 MG TAB PO SCH ×2 (08:08→21:24)
[2020-11-05] MEDS: levETIRAcetam 500 MG TAB PO SCH ×2 (08:08→21:24)
[2020-11-05] MEDS: Rifaximin 550 MG TAB PER TUBE SCH ×2 (08:08→21:24)
[2020-11-05] MEDS: Ferrous Sulfate 325 MG TAB PO SCH ×2 (08:08→17:06)
[2020-11-05] MEDS: Famotidine 20 MG TAB PER TUBE SCH ×2 (08:09→21:23)
[2020-11-05] MEDS: Enoxaparin Sodium 40 MG/0.4 ML SYRINGE SC SCH (08:09)
[2020-11-05] MEDS ORDERED: Potassium Bicarbonate/Cit Ac 20 MEQ TAB PER TUBE SCH (08:15)
[2020-11-05] MEDS ORDERED: Magnesium 2 GM/50 ML 2 GM in Premix Bag 1 BAG IVPB SCH (08:15)
[2020-11-05 09:11] LABS: Lactic Acid 2.2 mmol/L (0.5-2.2)
[2020-11-05] MEDS ORDERED: Iopamidol-370 76% 500 ML 1 ML ONE (10:21)
[2020-11-05 12:40] LABS: Vancomycin, Trough 20.8 ug/mL
[2020-11-05] MEDS: Magnesium 2 GM/50 ML 2 GM in Premix Bag 1 BAG IVPB SCH (12:55)
[2020-11-05] MEDS: Thiamine HCl 200 MG/2 ML VIAL SLOW IVP SCH (17:08)
[2020-11-05 20:55] LABS: SARS-CoV-2 PCR by NAA Not Detected (NotDetected)
[2020-11-05] MEDS: DULoxetine 60 MG CAP PO SCH (21:24)
[2020-11-05] MEDS ORDERED: Acetaminophen 325 MG TAB PO PRN (22:20)
[2020-11-06] MEDS: Piperacillin/Tazobactam 3.375 GM in Sodium Chloride 0.9% 100 ML IVPB SCH ×3 (00:44→17:58)
[2020-11-06 03:59] LABS: Anion Gap 11 mmol/L (10-20); BUN (Urea Nitrogen) 12 mg/dL (8.4-25.7); Calc. Creatinine Clearance 102 mL/min (70-130); Calcium 6.7 mg/dL (7.8-10.44); Carbon Dioxide 18 mmol/L (23-31); Chloride 116 mmol/L (98-107); Glucose 160 mg/dL (80-115); Magnesium 1.9 mg/dL (1.6-2.6); Potassium 3.1 mmol/L (3.5-5.1); Sodium 142 mmol/L (136-145)
[2020-11-06 04:29] LABS: #Eosinphils 0.3 thou/uL (0.0-0.7); #Lymphocytes 1.7 thou/uL (1.20-3.40); #Monocytes 1.3 thou/uL (0.11-0.59); %Basophils 0.5 % (0.0-1.0); %Eosinophils 3.3 % (0.0-10.0); %Lymphocytes 17.9 % (21.0-51.0); %Monocytes 13.5 % (0.0-10.0); %Neutrophils 64.8 % (42.0-75.0); Anisocytosis MODERATE=16-30 cells (100X) (0-5/hpf); Hemoglobin 9.1 g/dL (14.0-18.0); MDiff Complete? YES; Mean Corpuscular HGB CONC 32.1 g/dL (32.0-36.0); Mean Corpuscular Hemoglobin 27.5 pg (27.0-31.0); Mean Corpuscular Volume 85.5 fL (78.0-98.0); Mean Platelet Volume 9.2 fL (7.4-10.4); Platelet Count 150 thou/uL (130-400); RBC Distribution Width 24.4 % (11.5-14.5); White Blood Cell (WBC) Count 9.3 thou/uL (4.8-10.8)
[2020-11-06] MEDS: Sodium Chloride 0.9% 1,000 ML IV SCH ×2 (05:26→08:45)
[2020-11-06] MEDS: Vancomycin 1 GM in Premix Bag 1 BAG IVPB SCH ×2 (05:26→14:37)
[2020-11-06] MEDS ORDERED: Magnesium 2 GM/50 ML 2 GM in Premix Bag 1 BAG IVPB SCH (06:30)
[2020-11-06] MEDS ORDERED: Potassium Chloride 20 MEQ TAB PO SCH (06:30)
[2020-11-06] MEDS: Rifaximin 550 MG TAB PER TUBE SCH ×2 (08:44→21:34)
[2020-11-06] MEDS: Famotidine 20 MG TAB PER TUBE SCH ×2 (08:44→21:34)
[2020-11-06] MEDS: guaiFENesin ER 600 MG TAB PO SCH ×2 (08:44→21:34)
[2020-11-06] MEDS: Ferrous Sulfate 325 MG TAB PO SCH ×2 (08:44→17:58)
[2020-11-06] MEDS: levETIRAcetam 500 MG TAB PO SCH ×2 (08:44→21:34)
[2020-11-06] MEDS: Enoxaparin Sodium 40 MG/0.4 ML SYRINGE SC SCH (08:45)
[2020-11-06] MEDS: Potassium Chloride 20 MEQ in Premix Bag 1 BAG IVPB SCH ×2 (10:26→13:26)
[2020-11-06] MEDS ORDERED: Calcium Gluconate 4.6 MEQ in Sodium Chloride 0.9% 100 ML IVPB SCH (11:39)
[2020-11-06] MEDS: Albuterol Sulfate 2.5 mg/3 ml Neb EZPAP PRN (12:15)
[2020-11-06 12:59] LABS: Vancomycin, Trough 24.4 ug/mL
[2020-11-06] MEDS: methylPREDNISolone Sod Succ 40 MG VIAL IVP SCH (13:26)
[2020-11-06] MEDS: Lorazepam 2 MG/ML VIAL SLOW IVP PRN (13:27)
[2020-11-06] MEDS ORDERED: Furosemide 20 MG/2 ML VIAL SLOW IVP SCH (14:15)
[2020-11-06] MEDS: VANCOMYCIN 1.25 GM/250 ML BAG 1.25 GM in Premix Bag 1 BAG IVPB SCH (14:37)
[2020-11-06] MEDS: Thiamine HCl 200 MG/2 ML VIAL SLOW IVP SCH (17:58)
[2020-11-06] MEDS: DULoxetine 60 MG CAP PO SCH (21:34)
[2020-11-07] MEDS: Piperacillin/Tazobactam 3.375 GM in Sodium Chloride 0.9% 100 ML IVPB SCH ×2 (00:33→08:35)
[2020-11-07] MEDS: Albuterol Sulfate 2.5 mg/3 ml Neb EZPAP PRN (01:48)
[2020-11-07] MEDS: VANCOMYCIN 1.25 GM/250 ML BAG 1.25 GM in Premix Bag 1 BAG IVPB SCH (05:37)
[2020-11-07 05:39] LABS: #Basophils 0.1 thou/uL (0.0-0.2); #Eosinphils 0.1 thou/uL (0.0-0.7); #Lymphocytes 1.9 thou/uL (1.20-3.40); #Monocytes 1.6 thou/uL (0.11-0.59); #Neutrophils 8.6 thou/uL (1.40-6.50); %Basophils 0.4 % (0.0-1.0); %Lymphocytes 15.8 % (21.0-51.0); %Monocytes 12.9 % (0.0-10.0); %Neutrophils 69.8 % (42.0-75.0); Anisocytosis SLIGHT = 6-15 cells (100X) (0-5/hpf); Band 4 % (5-11); Burr Cells SLIGHT = 2-5 cells (100X) (0-1/hpf); Eosinophils 1 % (0-10); Hemoglobin 9.9 g/dL (14.0-18.0); Lymphocytes 7 % (21-51); MDiff Complete? YES; Mean Corpuscular HGB CONC 31.4 g/dL (32.0-36.0); Mean Corpuscular Hemoglobin 26.7 pg (27.0-31.0); Mean Corpuscular Volume 85.2 fL (78.0-98.0); Mean Platelet Volume 8.7 fL (7.4-10.4); Monocytes 11 % (0-10); Neutrophil 77 % (42-75); Platelet Count 198 thou/uL (130-400); RBC Distribution Width 24.8 % (11.5-14.5); Red Blood Cell (RBC) Count 3.69 mill/uL (4.70-6.10); White Blood Cell (WBC) Count 12.3 thou/uL (4.8-10.8)
[2020-11-07 06:06] LABS: Anion Gap 15 mmol/L (10-20); BUN (Urea Nitrogen) 11 mg/dL (8.4-25.7); Calc. Creatinine Clearance 88 mL/min (70-130); Calcium 7.9 mg/dL (7.8-10.44); Carbon Dioxide 17 mmol/L (23-31); Chloride 115 mmol/L (98-107); Glucose 181 mg/dL (80-115); Magnesium 1.9 mg/dL (1.6-2.6); Potassium 2.8 mmol/L (3.5-5.1); Sodium 144 mmol/L (136-145)
[2020-11-07] MEDS ORDERED: Magnesium 2 GM/50 ML 2 GM in Premix Bag 1 BAG IVPB SCH (06:15)
[2020-11-07] MEDS: Potassium Chloride 20 MEQ in Premix Bag 1 BAG IVPB SCH ×4 (06:18→15:21)
[2020-11-07] MEDS: methylPREDNISolone Sod Succ 40 MG VIAL IVP SCH (08:36)
[2020-11-07] MEDS: levETIRAcetam 500 MG TAB PO SCH ×2 (08:36→23:37)
[2020-11-07] MEDS: Rifaximin 550 MG TAB PER TUBE SCH ×2 (08:36→23:36)
[2020-11-07] MEDS: Enoxaparin Sodium 40 MG/0.4 ML SYRINGE SC SCH (08:36)
[2020-11-07] MEDS: Famotidine 20 MG TAB PER TUBE SCH ×2 (08:36→23:36)
[2020-11-07] MEDS: guaiFENesin ER 600 MG TAB PO SCH ×2 (08:36→23:36)
[2020-11-07] MEDS: Ferrous Sulfate 325 MG TAB PO SCH ×2 (08:36→15:21)
[2020-11-07] MEDS: Thiamine HCl 200 MG/2 ML VIAL SLOW IVP SCH (15:21)
[2020-11-07] MEDS: HumaLOG 300 UNITS/3 ML VIAL SC PRN (18:17)
[2020-11-07 18:49] LABS: Potassium 3.5 mmol/L (3.5-5.1)
[2020-11-07 18:56] LABS: Anion Gap 13 mmol/L (10-20); BUN (Urea Nitrogen) 14 mg/dL (8.4-25.7); Calc. Creatinine Clearance 77 mL/min (70-130); Calcium 7.7 mg/dL (7.8-10.44); Carbon Dioxide 19 mmol/L (23-31); Chloride 116 mmol/L (98-107); Glucose 294 mg/dL (80-115); Potassium 3.4 mmol/L (3.5-5.1); Sodium 145 mmol/L (136-145)
[2020-11-07] MEDS: Amoxicillin/Potassium Clav 875 MG TAB PO SCH (23:36)
[2020-11-07] MEDS: DULoxetine 60 MG CAP PO SCH (23:36)
[2020-11-08 04:30] LABS: Anion Gap 11 mmol/L (10-20); BUN (Urea Nitrogen) 15 mg/dL (8.4-25.7); Calc. Creatinine Clearance 98 mL/min (70-130); Calcium 7.5 mg/dL (7.8-10.44); Carbon Dioxide 17 mmol/L (23-31); Chloride 118 mmol/L (98-107); Glucose 207 mg/dL (80-115); Sodium 143 mmol/L (136-145)
[2020-11-08 04:37] LABS: Potassium 2.6 mmol/L (3.5-5.1)
[2020-11-08 04:59] LABS: #Lymphocytes 2.1 thou/uL (1.20-3.40); #Monocytes 1.6 thou/uL (0.11-0.59); %Basophils 0.1 % (0.0-1.0); %Eosinophils 0.1 % (0.0-10.0); %Lymphocytes 12.8 % (21.0-51.0); %Monocytes 9.3 % (0.0-10.0); %Neutrophils 77.8 % (42.0-75.0); Anisocytosis MODERATE=16-30 cells (100X) (0-5/hpf); Hemoglobin 9.4 g/dL (14.0-18.0); MDiff Complete? YES; Mean Corpuscular HGB CONC 31.3 g/dL (32.0-36.0); Mean Corpuscular Hemoglobin 26.8 pg (27.0-31.0); Mean Corpuscular Volume 85.6 fL (78.0-98.0); Mean Platelet Volume 8.9 fL (7.4-10.4); Platelet Count 212 thou/uL (130-400); RBC Distribution Width 24.7 % (11.5-14.5); Red Blood Cell (RBC) Count 3.49 mill/uL (4.70-6.10); White Blood Cell (WBC) Count 16.7 thou/uL (4.8-10.8)
[2020-11-08] MEDS: Potassium Chloride 20 MEQ in Premix Bag 1 BAG IVPB SCH ×3 (05:30→10:54)
[2020-11-08] MEDS: Ferrous Sulfate 325 MG TAB PO SCH ×2 (08:26→17:09)
[2020-11-08] MEDS: Enoxaparin Sodium 40 MG/0.4 ML SYRINGE SC SCH (08:27)
[2020-11-08] MEDS: methylPREDNISolone Sod Succ 40 MG VIAL IVP SCH (08:27)
[2020-11-08] MEDS: Amoxicillin/Potassium Clav 875 MG TAB PO SCH ×2 (08:27→20:26)
[2020-11-08] MEDS: Famotidine 20 MG TAB PER TUBE SCH ×2 (08:27→20:27)
[2020-11-08] MEDS: guaiFENesin ER 600 MG TAB PO SCH ×2 (08:27→20:27)
[2020-11-08] MEDS: levETIRAcetam 500 MG TAB PO SCH ×2 (08:27→20:26)
[2020-11-08] MEDS ORDERED: Potassium Chloride 20 MEQ TAB PO SCH ×4 (11:45→23:30)
[2020-11-08 14:00] LABS: Potassium 2.9 mmol/L (3.5-5.1)
[2020-11-08] MEDS: HumaLOG 300 UNITS/3 ML VIAL SC PRN ×2 (17:10→18:24)
[2020-11-08] MEDS: Thiamine HCl 200 MG/2 ML VIAL SLOW IVP SCH (17:12)
[2020-11-08 20:26] LABS: Potassium 3.1 mmol/L (3.5-5.1)
[2020-11-08] MEDS: DULoxetine 60 MG CAP PO SCH (20:27)
[2020-11-09] MEDS: Albuterol Sulfate 2.5 mg/3 ml Neb EZPAP PRN (00:24)
[2020-11-09] MEDS: HumaLOG 300 UNITS/3 ML VIAL SC PRN ×3 (05:40→19:21)
[2020-11-09 05:57] LABS: Hemoglobin 9.8 g/dL (14.0-18.0); Mean Corpuscular HGB CONC 31.4 g/dL (32.0-36.0); Mean Corpuscular Hemoglobin 26.9 pg (27.0-31.0); Mean Corpuscular Volume 85.5 fL (78.0-98.0); Mean Platelet Volume 8.2 fL (7.4-10.4); Platelet Count 256 thou/uL (130-400); RBC Distribution Width 24.6 % (11.5-14.5); Red Blood Cell (RBC) Count 3.65 mill/uL (4.70-6.10); White Blood Cell (WBC) Count 19.8 thou/uL (4.8-10.8)
[2020-11-09 06:24] LABS: Anion Gap 14 mmol/L (10-20); BUN (Urea Nitrogen) 13 mg/dL (8.4-25.7); Calc. Creatinine Clearance 113 mL/min (70-130); Calcium 7.1 mg/dL (7.8-10.44); Carbon Dioxide 14 mmol/L (23-31); Chloride 117 mmol/L (98-107); Glucose 182 mg/dL (80-115); Potassium 3.8 mmol/L (3.5-5.1); Sodium 141 mmol/L (136-145)
[2020-11-09] MEDS: guaiFENesin ER 600 MG TAB PO SCH ×2 (09:02→20:35)
[2020-11-09] MEDS: Famotidine 20 MG TAB PER TUBE SCH ×2 (09:02→20:35)
[2020-11-09] MEDS: levETIRAcetam 500 MG TAB PO SCH ×2 (09:02→20:35)
[2020-11-09] MEDS: predniSONE 20 MG TAB PO SCH (09:03)
[2020-11-09] MEDS: Enoxaparin Sodium 40 MG/0.4 ML SYRINGE SC SCH (09:03)
[2020-11-09] MEDS: Amoxicillin/Potassium Clav 875 MG TAB PO SCH ×2 (09:03→20:35)
[2020-11-09] MEDS: Ferrous Sulfate 325 MG TAB PO SCH ×2 (11:46→17:30)
[2020-11-09] MEDS: Thiamine HCl 200 MG/2 ML VIAL SLOW IVP SCH (17:30)
[2020-11-09] MEDS: Vancomycin 1.5 GRAM/300 ML BAG 1.5 GM in Premix Bag 1 BAG IVPB SCH (17:31)
[2020-11-09] MEDS: DULoxetine 60 MG CAP PO SCH (20:35)
[2020-11-10] MEDS: HumaLOG 300 UNITS/3 ML VIAL SC PRN (01:33)
[2020-11-10] MEDS: Vancomycin 1.5 GRAM/300 ML BAG 1.5 GM in Premix Bag 1 BAG IVPB SCH ×2 (05:53→16:09)
[2020-11-10 05:54] LABS: Hemoglobin 9.7 g/dL (14.0-18.0); Mean Corpuscular HGB CONC 30.7 g/dL (32.0-36.0); Mean Corpuscular Hemoglobin 26.3 pg (27.0-31.0); Mean Corpuscular Volume 85.7 fL (78.0-98.0); Mean Platelet Volume 8.7 fL (7.4-10.4); Platelet Count 214 thou/uL (130-400); RBC Distribution Width 24.5 % (11.5-14.5); Red Blood Cell (RBC) Count 3.69 mill/uL (4.70-6.10); White Blood Cell (WBC) Count 18.7 thou/uL (4.8-10.8)
[2020-11-10 08:01] LABS: Actual Bicarbonate (HCO3a) 19.1 mEq/L (22-28); Base Excess (BEa) -2.9 mEq/L (-2.0 to +3.0); Calcium, Ionized (arterial) 1.08 mmol/L (1.12-1.30); Carboxyhemoglobin (COHb) 0.8 gm% (0.0-3.0); Potassium - ABG Lab 2.61 mmol/L (3.70-5.30)
[2020-11-10 08:10] LABS: CO2 Tension 25.1 mmHg (35.0-45.0); Puncture Site RRA
[2020-11-10] MEDS: Enoxaparin Sodium 40 MG/0.4 ML SYRINGE SC SCH (09:49)
[2020-11-10] MEDS: guaiFENesin ER 600 MG TAB PO SCH ×2 (09:49→20:58)
[2020-11-10] MEDS: Famotidine 20 MG TAB PER TUBE SCH ×2 (09:49→20:58)
[2020-11-10] MEDS: Ferrous Sulfate 325 MG TAB PO SCH ×2 (09:49→16:09)
[2020-11-10] MEDS: levETIRAcetam 500 MG TAB PO SCH ×2 (09:49→20:58)
[2020-11-10] MEDS: Piperacillin/Tazobactam 3.375 GM in Sodium Chloride 0.9% 100 ML IVPB SCH ×3 (09:56→21:10)
[2020-11-10] MEDS: predniSONE 20 MG TAB PO SCH (11:02)
[2020-11-10] MEDS: Thiamine HCl 200 MG/2 ML VIAL SLOW IVP SCH (17:16)
[2020-11-10] MEDS: DULoxetine 60 MG CAP PO SCH (20:58)
[2020-11-11] MEDS: Piperacillin/Tazobactam 3.375 GM in Sodium Chloride 0.9% 100 ML IVPB SCH ×4 (03:15→21:23)
[2020-11-11 04:53] LABS: Vancomycin, Trough 13.7 ug/mL
[2020-11-11] MEDS: Vancomycin 1.5 GRAM/300 ML BAG 1.5 GM in Premix Bag 1 BAG IVPB SCH ×2 (05:19→17:56)
[2020-11-11] MEDS: Famotidine 20 MG TAB PER TUBE SCH ×2 (10:32→21:23)
[2020-11-11] MEDS: Ferrous Sulfate 325 MG TAB PO SCH ×2 (10:32→17:56)
[2020-11-11] MEDS: levETIRAcetam 500 MG TAB PO SCH ×2 (10:33→21:23)
[2020-11-11] MEDS: guaiFENesin ER 600 MG TAB PO SCH ×2 (10:33→21:23)
[2020-11-11] MEDS: Enoxaparin Sodium 40 MG/0.4 ML SYRINGE SC SCH (10:33)
[2020-11-11] MEDS: Thiamine HCl 200 MG/2 ML VIAL SLOW IVP SCH (18:20)
[2020-11-11] MEDS: DULoxetine 60 MG CAP PO SCH (21:23)
[2020-11-12] MEDS: Piperacillin/Tazobactam 3.375 GM in Sodium Chloride 0.9% 100 ML IVPB SCH ×4 (03:53→20:50)
[2020-11-12] MEDS: Vancomycin 1.5 GRAM/300 ML BAG 1.5 GM in Premix Bag 1 BAG IVPB SCH ×2 (05:27→17:43)
[2020-11-12] MEDS: HumaLOG 300 UNITS/3 ML VIAL SC PRN (05:47)
[2020-11-12 08:26] LABS: ALT (SGPT) 12 U/L (8-55); AST (SGOT) 31 U/L (5-34); Albumin 1.9 g/dL (3.4-4.8); Alkaline Phosphatase 100 U/L (40-110); Anion Gap 10 mmol/L (10-20); BUN (Urea Nitrogen) 7 mg/dL (8.4-25.7); Bilirubin, Total 1.1 mg/dL (0.2-1.2); Calc. Creatinine Clearance 119 mL/min (70-130); Calcium 6.8 mg/dL (7.8-10.44); Carbon Dioxide 19 mmol/L (23-31); Chloride 114 mmol/L (98-107); Globulin 3.5 g/dL (2.4-3.5); Glucose 124 mg/dL (80-115); Protein, Total 5.4 g/dL (5.8-8.1); Sodium 141 mmol/L (136-145)
[2020-11-12 08:28] LABS: Potassium 2.3 mmol/L (3.5-5.1)
[2020-11-12 09:02] LABS: Eosinophils 4 % (0-10); Hemoglobin 9.9 g/dL (14.0-18.0); Hypochromia SLIGHT = 6-15 cells (100X) (0-5/hpf); Lymphocytes 8 % (21-51); MDiff Complete? YES; Mean Corpuscular HGB CONC 31.1 g/dL (32.0-36.0); Mean Corpuscular Hemoglobin 26.7 pg (27.0-31.0); Mean Corpuscular Volume 85.8 fL (78.0-98.0); Mean Platelet Volume 8.6 fL (7.4-10.4); Microcytosis SLIGHT = 6-15 cells (100X) (0-5/hpf); Monocytes 1 % (0-10); Neutrophil 87 % (42-75); Ovalocytes SLIGHT = 2-5 cells (100X) (0-1/hpf); Platelet Count 206 thou/uL (130-400); Platelet Morphology Comment Appears Adequate; Poikilocytosis SLIGHT = 6-15 cells (100X) (0-5/hpf); Polychromasia SLIGHT = 2-3 cells (100X) (0-2/hpf); Red Blood Cell (RBC) Count 3.71 mill/uL (4.70-6.10); White Blood Cell (WBC) Count 23.7 thou/uL (4.8-10.8)
[2020-11-12] MEDS: Potassium Chloride 20 MEQ in Premix Bag 1 BAG IVPB SCH ×4 (09:04→15:58)
[2020-11-12] MEDS: levETIRAcetam 500 MG TAB PO SCH ×2 (09:05→20:50)
[2020-11-12] MEDS: Ferrous Sulfate 325 MG TAB PO SCH ×2 (09:05→17:44)
[2020-11-12] MEDS: Enoxaparin Sodium 40 MG/0.4 ML SYRINGE SC SCH (09:05)
[2020-11-12] MEDS: Famotidine 20 MG TAB PER TUBE SCH ×2 (09:05→20:49)
[2020-11-12] MEDS: guaiFENesin ER 600 MG TAB PO SCH ×2 (09:05→20:49)
[2020-11-12 16:37] LABS: Vancomycin, Trough 16.4 ug/mL
[2020-11-12] MEDS: Thiamine HCl 200 MG/2 ML VIAL SLOW IVP SCH (17:43)
[2020-11-12] MEDS: DULoxetine 60 MG CAP PO SCH (20:49)
[2020-11-13] MEDS: Acetaminophen 650 MG Suppository PR PRN (02:11)
[2020-11-13] MEDS ORDERED: ALPRAZolam 0.25 MG TAB PO SCH (02:45)
[2020-11-13] MEDS ORDERED: Furosemide 40 MG/4 ML VIAL SLOW IVP SCH (03:00)
[2020-11-13] MEDS: Piperacillin/Tazobactam 3.375 GM in Sodium Chloride 0.9% 100 ML IVPB SCH ×4 (03:04→21:17)
[2020-11-13] MEDS: Vancomycin 1.5 GRAM/300 ML BAG 1.5 GM in Premix Bag 1 BAG IVPB SCH ×2 (05:45→17:17)
[2020-11-13] MEDS ORDERED: Magnesium 2 GM/50 ML 2 GM in Premix Bag 1 BAG IVPB SCH (06:15)
[2020-11-13 07:24] LABS: Anion Gap 9 mmol/L (10-20); BUN (Urea Nitrogen) 7 mg/dL (8.4-25.7); Calc. Creatinine Clearance 113 mL/min (70-130); Calcium 7.1 mg/dL (7.8-10.44); Carbon Dioxide 24 mmol/L (23-31); Chloride 112 mmol/L (98-107); Glucose 164 mg/dL (80-115); Sodium 143 mmol/L (136-145)
[2020-11-13 07:34] LABS: Potassium 2.3 mmol/L (3.5-5.1)
[2020-11-13] MEDS: Ferrous Sulfate 325 MG TAB PO SCH ×2 (09:32→17:16)
[2020-11-13] MEDS: Famotidine 20 MG TAB PER TUBE SCH (09:32)
[2020-11-13] MEDS: Enoxaparin Sodium 40 MG/0.4 ML SYRINGE SC SCH (09:32)
[2020-11-13] MEDS: guaiFENesin ER 600 MG TAB PO SCH ×2 (09:32→20:08)
[2020-11-13] MEDS: levETIRAcetam 500 MG TAB PO SCH ×2 (09:32→20:08)
[2020-11-13] MEDS: Potassium Chloride 20 MEQ in Premix Bag 1 BAG IVPB SCH ×4 (09:33→16:53)
[2020-11-13] MEDS: HumaLOG 300 UNITS/3 ML VIAL SC PRN (11:37)
[2020-11-13] MEDS ORDERED: Propofol 1,000 MG/100 ML VIAL IV ONE (15:36)
[2020-11-13] MEDS ORDERED: Ventilator Sedation Protocol 1 EACH FS ONE (16:17)
[2020-11-13] MEDS ORDERED: Electrolyte Replacement Protocol 1 EACH FS ONE (16:17)
[2020-11-13] MEDS ORDERED: Propofol 1,000 MG/100 ML VIAL IV PRN (16:30)
[2020-11-13] MEDS ORDERED: Electrolyte Replacement Protocol FS PRN (16:30)
[2020-11-13] MEDS ORDERED: Morphine 2 MG/ML VIAL SLOW IVP PRN (16:30)
[2020-11-13] MEDS ORDERED: Propofol BOLUS 1,000 MG/100 ML VIAL IV PRN ×2 (16:30)
[2020-11-13] MEDS ORDERED: Fentanyl CADD 100 ML IV SCH (16:30)
[2020-11-13] MEDS ORDERED: DISCONTINUE PREVIOUS NARCOTIC PAIN MEDICATIONS AND BENZODIAZEPINES FS SCH (16:30)
[2020-11-13] MEDS ORDERED: Fentanyl BOLUS 250 ML IVPB PRN (16:30)
[2020-11-13] MEDS: Lorazepam 2 MG/ML VIAL SLOW IVP PRN ×2 (16:32→16:41)
[2020-11-13 16:42] LABS: Actual Bicarbonate (HCO3a) 23.1 mEq/L (22-28); Base Excess (BEa) -2.1 mEq/L (-2.0 to +3.0); CO2 Tension 40.8 mmHg (35.0-45.0); Calcium, Ionized (arterial) 1.08 mmol/L (1.12-1.30); Carboxyhemoglobin (COHb) 1.4 gm% (0.0-3.0); Hemoglobin (Hb) 11.5 g/dL (14.0-18.0); Potassium - ABG Lab 3.19 mmol/L (3.70-5.30); pH, Arterial 7.37 (7.35-7.45)
[2020-11-13 16:50] LABS: O2 Tension (PaO2), arterial 46.2 mmHg (> 80.0); Puncture Site RBA
[2020-11-13] MEDS: Sodium Chloride 0.9% 1,000 ML IV SCH (17:16)
[2020-11-13] MEDS: Thiamine HCl 200 MG/2 ML VIAL SLOW IVP SCH (17:22)
[2020-11-13] MEDS: Propofol 1,000 MG/100 ML VIAL IV PRN (19:28)
[2020-11-13] MEDS: DULoxetine 60 MG CAP PO SCH (20:07)
[2020-11-13] MEDS: methylPREDNISolone Sod Succ 40 MG VIAL IVP SCH (21:17)
[2020-11-13] MEDS: Aluminum & Magnesium Hydroxide 60 ML, Lidocaine 2% Viscous Solution 30 ML, diphenhydrAM... SSW SCH (21:22)
[2020-11-13 21:39] LABS: Potassium 2.9 mmol/L (3.5-5.1)
[2020-11-13] MEDS: Potassium Chloride 40 MEQ in Sodium Chloride 0.9% 250 ML 250 ML IVPB SCH (22:08)
[2020-11-14] MEDS: Propofol 1,000 MG/100 ML VIAL IV PRN ×4 (00:26→17:58)
[2020-11-14] MEDS: Piperacillin/Tazobactam 3.375 GM in Sodium Chloride 0.9% 100 ML IVPB SCH ×4 (02:21→20:51)
[2020-11-14] MEDS: Potassium Chloride 40 MEQ in Sodium Chloride 0.9% 250 ML 250 ML IVPB SCH (03:05)
[2020-11-14 04:28] LABS: #Eosinphils 0.1 thou/uL (0.0-0.7); #Lymphocytes 1.1 thou/uL (1.20-3.40); #Monocytes 0.5 thou/uL (0.11-0.59); #Neutrophils 18.1 thou/uL (1.40-6.50); %Basophils 0.1 % (0.0-1.0); %Eosinophils 0.4 % (0.0-10.0); %Lymphocytes 5.7 % (21.0-51.0); %Monocytes 2.3 % (0.0-10.0); %Neutrophils 91.5 % (42.0-75.0); Hemoglobin 9.2 g/dL (14.0-18.0); Mean Corpuscular HGB CONC 31.1 g/dL (32.0-36.0); Mean Corpuscular Hemoglobin 26.9 pg (27.0-31.0); Mean Corpuscular Volume 86.6 fL (78.0-98.0); Mean Platelet Volume 9.4 fL (7.4-10.4); Platelet Count 149 thou/uL (130-400); RBC Distribution Width 24.1 % (11.5-14.5); Red Blood Cell (RBC) Count 3.42 mill/uL (4.70-6.10); White Blood Cell (WBC) Count 19.7 thou/uL (4.8-10.8)
[2020-11-14 04:55] LABS: Anion Gap 12 mmol/L (10-20); BUN (Urea Nitrogen) 13 mg/dL (8.4-25.7); Calc. Creatinine Clearance 105 mL/min (70-130); Calcium 7.1 mg/dL (7.8-10.44); Carbon Dioxide 21 mmol/L (23-31); Chloride 113 mmol/L (98-107); Glucose 208 mg/dL (80-115); Potassium 3.6 mmol/L (3.5-5.1); Sodium 142 mmol/L (136-145)
[2020-11-14] MEDS: Vancomycin 1.5 GRAM/300 ML BAG 1.5 GM in Premix Bag 1 BAG IVPB SCH (05:55)
[2020-11-14] MEDS: methylPREDNISolone Sod Succ 40 MG VIAL IVP SCH ×3 (06:02→21:02)
[2020-11-14] MEDS ORDERED: Magnesium 2 GM/50 ML 2 GM in Premix Bag 1 BAG IVPB SCH (06:15)
[2020-11-14] MEDS: HumaLOG 300 UNITS/3 ML VIAL SC PRN ×3 (06:18→18:11)
[2020-11-14] MEDS: Sodium Chloride 0.9% 1,000 ML IV SCH ×2 (07:09→21:42)
[2020-11-14] MEDS: Ferrous Sulfate 325 MG TAB PO SCH ×2 (07:09→16:41)
[2020-11-14] MEDS: levETIRAcetam 500 MG TAB PO SCH ×2 (07:10→20:23)
[2020-11-14] MEDS: Enoxaparin Sodium 40 MG/0.4 ML SYRINGE SC SCH (07:10)
[2020-11-14] MEDS: guaiFENesin ER 600 MG TAB PO SCH ×2 (07:10→20:23)
[2020-11-14 07:54] LABS: Base Excess (BEa) -0.1 mEq/L (-2.0 to +3.0); CO2 Tension 26.7 mmHg (35.0-45.0); Calcium, Ionized (arterial) 1.05 mmol/L (1.12-1.30); Carboxyhemoglobin (COHb) 1.3 gm% (0.0-3.0); Hemoglobin (Hb) 9.2 g/dL (14.0-18.0); O2 Tension (PaO2), arterial 65.5 mmHg (> 80.0); Potassium - ABG Lab 3.92 mmol/L (3.70-5.30); pH, Arterial 7.53 (7.35-7.45)
[2020-11-14 07:55] LABS: ALV-art Gradient 257.625 mmHg (0-20); Puncture Site RBA
[2020-11-14] MEDS: Pantoprazole 40 MG GRANULES PACKET PER TUBE SCH (08:54)
[2020-11-14] MEDS: Aluminum & Magnesium Hydroxide 60 ML, Lidocaine 2% Viscous Solution 30 ML, diphenhydrAM... SSW SCH ×2 (10:03→21:41)
[2020-11-14] MEDS: Thiamine HCl 200 MG/2 ML VIAL SLOW IVP SCH (16:41)
[2020-11-14 16:50] LABS: Vancomycin, Trough 21.3 ug/mL
[2020-11-14] MEDS ORDERED: Vancomycin HCl 1.5 GM in Sodium Chloride 0.9% 250 ML 300 ML IVPB SCH (17:00)
[2020-11-14] MEDS ORDERED: Sodium Chloride 0.9% 500 ML IVPB SCH (18:45)
[2020-11-14] MEDS: DULoxetine 60 MG CAP PO SCH (20:23)
[2020-11-15] MEDS ORDERED: Albumin 25% 25 GM/100 ML BOT IVPB SCH (01:00)
[2020-11-15] MEDS: HumaLOG 300 UNITS/3 ML VIAL SC PRN ×5 (01:03→22:13)
[2020-11-15] MEDS: Piperacillin/Tazobactam 3.375 GM in Sodium Chloride 0.9% 100 ML IVPB SCH ×4 (03:17→21:12)
[2020-11-15] MEDS: VANCOMYCIN 1.25 GM/250 ML BAG 1.25 GM in Premix Bag 1 BAG IVPB SCH ×2 (04:50→16:14)
[2020-11-15] MEDS: methylPREDNISolone Sod Succ 40 MG VIAL IVP SCH ×3 (05:32→21:08)
[2020-11-15] MEDS: Lorazepam 2 MG/ML VIAL SLOW IVP PRN (05:32)
[2020-11-15] MEDS: Ferrous Sulfate 325 MG TAB PO SCH ×2 (07:08→16:13)
[2020-11-15] MEDS: Enoxaparin Sodium 40 MG/0.4 ML SYRINGE SC SCH (07:08)
[2020-11-15] MEDS: Pantoprazole 40 MG GRANULES PACKET PER TUBE SCH (07:08)
[2020-11-15] MEDS: levETIRAcetam 500 MG TAB PO SCH ×2 (07:08→21:04)
[2020-11-15] MEDS: guaiFENesin ER 600 MG TAB PO SCH ×2 (07:08→22:47)
[2020-11-15 07:21] LABS: Mean Corpuscular HGB CONC 30.5 g/dL (32.0-36.0); Mean Corpuscular Hemoglobin 26.7 pg (27.0-31.0); Mean Corpuscular Volume 87.7 fL (78.0-98.0); Mean Platelet Volume 9.6 fL (7.4-10.4); Platelet Count 168 thou/uL (130-400); RBC Distribution Width 24.4 % (11.5-14.5); Red Blood Cell (RBC) Count 3.36 mill/uL (4.70-6.10); White Blood Cell (WBC) Count 17.4 thou/uL (4.8-10.8)
[2020-11-15 07:25] LABS: Anion Gap 12 mmol/L (10-20); BUN (Urea Nitrogen) 34 mg/dL (8.4-25.7); Calc. Creatinine Clearance 89 mL/min (70-130); Calcium 7.1 mg/dL (7.8-10.44); Carbon Dioxide 16 mmol/L (23-31); Chloride 116 mmol/L (98-107); Glucose 327 mg/dL (80-115); Magnesium 2.5 mg/dL (1.6-2.6); Sodium 140 mmol/L (136-145)
[2020-11-15 07:44] LABS: #Lymphocytes 1.2 thou/uL (1.20-3.40); #Monocytes 0.8 thou/uL (0.11-0.59); #Neutrophils 15.4 thou/uL (1.40-6.50); %Basophils 0.2 % (0.0-1.0); %Eosinophils 0.2 % (0.0-10.0); %Lymphocytes 6.6 % (21.0-51.0); %Monocytes 4.6 % (0.0-10.0); %Neutrophils 88.4 % (42.0-75.0); Band 4 % (5-11); Burr Cells SLIGHT = 2-5 cells (100X) (0-1/hpf); Hypochromia SLIGHT = 6-15 cells (100X) (0-5/hpf); Lymphocytes 8 % (21-51); MDiff Complete? YES; Monocytes 2 % (0-10); Neutrophil 86 % (42-75); Platelet Morphology Comment Appears Adequate; Polychromasia SLIGHT = 2-3 cells (100X) (0-2/hpf); Schistocytes SLIGHT = 2-5 cells (100X) (0-1/hpf)
[2020-11-15] MEDS: Propofol 1,000 MG/100 ML VIAL IV PRN ×3 (09:03→21:39)
[2020-11-15] MEDS: Aluminum & Magnesium Hydroxide 60 ML, Lidocaine 2% Viscous Solution 30 ML, diphenhydrAM... SSW SCH ×2 (09:42→21:16)
[2020-11-15] MEDS: NPH, Human Insulin Isophane 300 UNIT/3 ML VIAL SC SCH ×2 (09:42→21:05)
[2020-11-15] MEDS: Thiamine HCl 200 MG/2 ML VIAL SLOW IVP SCH (16:14)
[2020-11-15] MEDS: DULoxetine 60 MG CAP PO SCH (21:04)
[2020-11-16] MEDS: Piperacillin/Tazobactam 3.375 GM in Sodium Chloride 0.9% 100 ML IVPB SCH ×4 (03:47→21:41)
[2020-11-16] MEDS: HumaLOG 300 UNITS/3 ML VIAL SC PRN ×3 (04:18→21:50)
[2020-11-16] MEDS: Propofol 1,000 MG/100 ML VIAL IV PRN ×3 (04:18→21:58)
[2020-11-16 05:00] LABS: #Eosinphils 0.1 thou/uL (0.0-0.7); #Lymphocytes 1.4 thou/uL (1.20-3.40); #Monocytes 1.1 thou/uL (0.11-0.59); #Neutrophils 14.4 thou/uL (1.40-6.50); %Basophils 0.2 % (0.0-1.0); %Eosinophils 0.3 % (0.0-10.0); %Lymphocytes 8.2 % (21.0-51.0); %Monocytes 6.2 % (0.0-10.0); %Neutrophils 85.1 % (42.0-75.0); Hemoglobin 9.9 g/dL (14.0-18.0); Mean Corpuscular HGB CONC 30.5 g/dL (32.0-36.0); Mean Corpuscular Volume 88.4 fL (78.0-98.0); Mean Platelet Volume 9.4 fL (7.4-10.4); Platelet Count 176 thou/uL (130-400); RBC Distribution Width 25.1 % (11.5-14.5); Red Blood Cell (RBC) Count 3.66 mill/uL (4.70-6.10)
[2020-11-16] MEDS: methylPREDNISolone Sod Succ 40 MG VIAL IVP SCH ×3 (05:12→21:36)
[2020-11-16 05:23] LABS: Anion Gap 12 mmol/L (10-20); BUN (Urea Nitrogen) 34 mg/dL (8.4-25.7); Calc. Creatinine Clearance 101 mL/min (70-130); Calcium 7.2 mg/dL (7.8-10.44); Carbon Dioxide 18 mmol/L (23-31); Chloride 116 mmol/L (98-107); Glucose 285 mg/dL (80-115); Magnesium 2.4 mg/dL (1.6-2.6); Potassium 3.9 mmol/L (3.5-5.1); Sodium 142 mmol/L (136-145)
[2020-11-16] MEDS: VANCOMYCIN 1.25 GM/250 ML BAG 1.25 GM in Premix Bag 1 BAG IVPB SCH (05:25)
[2020-11-16] MEDS: Ferrous Sulfate 325 MG TAB PO SCH ×2 (07:04→17:37)
[2020-11-16] MEDS: Aluminum & Magnesium Hydroxide 60 ML, Lidocaine 2% Viscous Solution 30 ML, diphenhydrAM... SSW SCH ×2 (07:04→22:15)
[2020-11-16] MEDS: levETIRAcetam 500 MG TAB PO SCH ×2 (07:05→21:40)
[2020-11-16] MEDS: Pantoprazole 40 MG GRANULES PACKET PER TUBE SCH (07:05)
[2020-11-16] MEDS: guaiFENesin ER 600 MG TAB PO SCH ×2 (07:05→21:59)
[2020-11-16] MEDS: Enoxaparin Sodium 40 MG/0.4 ML SYRINGE SC SCH (07:05)
[2020-11-16] MEDS: NPH, Human Insulin Isophane 300 UNIT/3 ML VIAL SC SCH ×3 (07:06→21:42)
[2020-11-16 07:44] LABS: Actual Bicarbonate (HCO3a) 23.2 mEq/L (22-28); CO2 Tension 32.4 mmHg (35.0-45.0); Calcium, Ionized (arterial) 1.11 mmol/L (1.12-1.30); Carboxyhemoglobin (COHb) 0.3 gm% (0.0-3.0); Potassium - ABG Lab 3.71 mmol/L (3.70-5.30); pH, Arterial 7.47 (7.35-7.45)
[2020-11-16 07:49] LABS: Puncture Site LRA
[2020-11-16] MEDS: Metoclopramide HCl 10 MG/2 ML VIAL IVP SCH ×3 (17:37→21:42)
[2020-11-16] MEDS: Thiamine HCl 200 MG/2 ML VIAL SLOW IVP SCH (17:37)
[2020-11-16] MEDS: DULoxetine 60 MG CAP PO SCH (21:40)
[2020-11-16] MEDS ORDERED: GUAIFENESIN SF SOLN 200 MG/10 ML UDCUP PO PRN (23:00)
[2020-11-17] MEDS: Metoclopramide HCl 10 MG/2 ML VIAL IVP SCH ×4 (02:05→20:12)
[2020-11-17] MEDS: Piperacillin/Tazobactam 3.375 GM in Sodium Chloride 0.9% 100 ML IVPB SCH ×4 (03:56→21:02)
[2020-11-17] MEDS: HumaLOG 300 UNITS/3 ML VIAL SC PRN ×3 (05:17→16:03)
[2020-11-17] MEDS: methylPREDNISolone Sod Succ 40 MG VIAL IVP SCH ×3 (05:21→21:21)
[2020-11-17] MEDS: Propofol 1,000 MG/100 ML VIAL IV PRN ×3 (05:31→23:59)
[2020-11-17 07:32] LABS: Base Excess (BEa) 0.6 mEq/L (-2.0 to +3.0); CO2 Tension 34.2 mmHg (35.0-45.0); Calcium, Ionized (arterial) 1.17 mmol/L (1.12-1.30); Carboxyhemoglobin (COHb) 1.3 gm% (0.0-3.0); Hemoglobin (Hb) 11.9 g/dL (14.0-18.0); O2 Tension (PaO2), arterial 69.4 mmHg (> 80.0); Potassium - ABG Lab 4.12 mmol/L (3.70-5.30); pH, Arterial 7.46 (7.35-7.45)
[2020-11-17 07:54] LABS: Puncture Site RRA
[2020-11-17] MEDS: Enoxaparin Sodium 40 MG/0.4 ML SYRINGE SC SCH (09:11)
[2020-11-17] MEDS: levETIRAcetam 500 MG TAB PO SCH ×2 (09:12→20:26)
[2020-11-17] MEDS: Ferrous Sulfate 325 MG TAB PO SCH ×2 (09:12→17:02)
[2020-11-17] MEDS: Pantoprazole 40 MG GRANULES PACKET PER TUBE SCH (09:12)
[2020-11-17] MEDS: NPH, Human Insulin Isophane 300 UNIT/3 ML VIAL SC SCH ×2 (09:13→20:35)
[2020-11-17] MEDS: Aluminum & Magnesium Hydroxide 60 ML, Lidocaine 2% Viscous Solution 30 ML, diphenhydrAM... SSW SCH (09:36)
[2020-11-17 12:41] LABS: Anion Gap 6 mmol/L (10-20); BUN (Urea Nitrogen) 27 mg/dL (8.4-25.7); Calc. Creatinine Clearance 131 mL/min (70-130); Calcium 6.5 mg/dL (7.8-10.44); Carbon Dioxide 22 mmol/L (23-31); Chloride 121 mmol/L (98-107); Glucose 248 mg/dL (80-115); Magnesium 1.8 mg/dL (1.6-2.6); Potassium 4.6 mmol/L (3.5-5.1); Sodium 144 mmol/L (136-145)
[2020-11-17] MEDS ORDERED: Magnesium 2 GM/50 ML 2 GM in Premix Bag 1 BAG IVPB SCH (13:00)
[2020-11-17] MEDS: Thiamine HCl 200 MG/2 ML VIAL SLOW IVP SCH (17:02)
[2020-11-17 17:50] LABS: #Eosinphils 0.1 thou/uL (0.0-0.7); #Lymphocytes 1.3 thou/uL (1.20-3.40); #Monocytes 1.3 thou/uL (0.11-0.59); %Basophils 0.1 % (0.0-1.0); %Eosinophils 0.3 % (0.0-10.0); %Lymphocytes 7.9 % (21.0-51.0); %Monocytes 7.8 % (0.0-10.0); Hemoglobin 11.6 g/dL (14.0-18.0); MDiff Complete? YES; Mean Corpuscular HGB CONC 29.9 g/dL (32.0-36.0); Mean Corpuscular Hemoglobin 26.6 pg (27.0-31.0); Mean Corpuscular Volume 89.1 fL (78.0-98.0); Ovalocytes SLIGHT = 2-5 cells (100X) (0-1/hpf); Platelet Count 119 thou/uL (130-400); Platelet Morphology Comment Appears Adequate; Poikilocytosis SLIGHT = 6-15 cells (100X) (0-5/hpf); Red Blood Cell (RBC) Count 4.38 mill/uL (4.70-6.10); White Blood Cell (WBC) Count 16.7 thou/uL (4.8-10.8)
[2020-11-17] MEDS: DULoxetine 60 MG CAP PO SCH (20:25)
[2020-11-18] MEDS: Aluminum & Magnesium Hydroxide 60 ML, Lidocaine 2% Viscous Solution 30 ML, diphenhydrAM... SSW SCH ×3 (02:41→20:58)
[2020-11-18] MEDS: Metoclopramide HCl 10 MG/2 ML VIAL IVP SCH ×4 (02:45→20:02)
[2020-11-18] MEDS: Piperacillin/Tazobactam 3.375 GM in Sodium Chloride 0.9% 100 ML IVPB SCH ×4 (02:50→20:11)
[2020-11-18] MEDS: Lorazepam 2 MG/ML VIAL SLOW IVP PRN ×2 (02:54→19:50)
[2020-11-18] MEDS: methylPREDNISolone Sod Succ 40 MG VIAL IVP SCH ×3 (05:46→22:27)
[2020-11-18 06:21] LABS: Anion Gap 10 mmol/L (10-20); BUN (Urea Nitrogen) 23 mg/dL (8.4-25.7); Calc. Creatinine Clearance 135 mL/min (70-130); Calcium 7.5 mg/dL (7.8-10.44); Carbon Dioxide 21 mmol/L (23-31); Chloride 116 mmol/L (98-107); Glucose 178 mg/dL (80-115); Potassium 4.3 mmol/L (3.5-5.1); Sodium 143 mmol/L (136-145)
[2020-11-18] MEDS: HumaLOG 300 UNITS/3 ML VIAL SC PRN ×4 (06:45→23:35)
[2020-11-18] MEDS ORDERED: Magnesium 2 GM/50 ML 2 GM in Premix Bag 1 BAG IVPB SCH (06:45)
[2020-11-18 07:03] LABS: #Lymphocytes 1.4 thou/uL (1.20-3.40); #Monocytes 1.3 thou/uL (0.11-0.59); #Neutrophils 13.6 thou/uL (1.40-6.50); %Basophils 0.1 % (0.0-1.0); %Eosinophils 0.2 % (0.0-10.0); %Lymphocytes 8.3 % (21.0-51.0); %Neutrophils 83.3 % (42.0-75.0); Anisocytosis SLIGHT = 6-15 cells (100X) (0-5/hpf); Hemoglobin 10.1 g/dL (14.0-18.0); MDiff Complete? YES; Mean Corpuscular HGB CONC 29.8 g/dL (32.0-36.0); Mean Corpuscular Hemoglobin 26.4 pg (27.0-31.0); Mean Corpuscular Volume 88.5 fL (78.0-98.0); Mean Platelet Volume 9.4 fL (7.4-10.4); Platelet Count 161 thou/uL (130-400); RBC Distribution Width 24.4 % (11.5-14.5); Red Blood Cell (RBC) Count 3.82 mill/uL (4.70-6.10); White Blood Cell (WBC) Count 16.3 thou/uL (4.8-10.8)
[2020-11-18 07:10] LABS: Actual Bicarbonate (HCO3a) 23.9 mEq/L (22-28); Base Excess (BEa) 0.6 mEq/L (-2.0 to +3.0); CO2 Tension 34.6 mmHg (35.0-45.0); Calcium, Ionized (arterial) 1.14 mmol/L (1.12-1.30); Carboxyhemoglobin (COHb) 1.4 gm% (0.0-3.0); Hemoglobin (Hb) 13.7 g/dL (14.0-18.0); O2 Tension (PaO2), arterial 67.3 mmHg (> 80.0); pH, Arterial 7.46 (7.35-7.45)
[2020-11-18 07:31] LABS: Puncture Site RRA
[2020-11-18] MEDS: Propofol 1,000 MG/100 ML VIAL IV PRN ×2 (08:32→17:51)
[2020-11-18] MEDS: Ferrous Sulfate 325 MG TAB PO SCH ×2 (08:33→17:01)
[2020-11-18] MEDS: levETIRAcetam 500 MG TAB PO SCH ×2 (08:33→20:02)
[2020-11-18] MEDS: Enoxaparin Sodium 40 MG/0.4 ML SYRINGE SC SCH (08:33)
[2020-11-18] MEDS: Pantoprazole 40 MG GRANULES PACKET PER TUBE SCH (08:33)
[2020-11-18] MEDS: NPH, Human Insulin Isophane 300 UNIT/3 ML VIAL SC SCH ×2 (08:34→20:04)
[2020-11-18] MEDS: Thiamine HCl 200 MG/2 ML VIAL SLOW IVP SCH (17:01)
[2020-11-18] MEDS: Morphine 4 MG/ML VIAL SLOW IVP PRN (20:01)
[2020-11-18] MEDS: DULoxetine 60 MG CAP PO SCH (20:02)
[2020-11-19] MEDS: Propofol 1,000 MG/100 ML VIAL IV PRN ×3 (03:36→21:07)
[2020-11-19] MEDS: Metoclopramide HCl 10 MG/2 ML VIAL IVP SCH ×4 (03:36→21:04)
[2020-11-19] MEDS: Piperacillin/Tazobactam 3.375 GM in Sodium Chloride 0.9% 100 ML IVPB SCH ×4 (03:36→21:05)
[2020-11-19 04:15] LABS: Anion Gap 9 mmol/L (10-20); BUN (Urea Nitrogen) 22 mg/dL (8.4-25.7); Calc. Creatinine Clearance 129 mL/min (70-130); Calcium 7.7 mg/dL (7.8-10.44); Carbon Dioxide 24 mmol/L (23-31); Chloride 116 mmol/L (98-107); Glucose 150 mg/dL (80-115); Potassium 3.1 mmol/L (3.5-5.1); Sodium 146 mmol/L (136-145)
[2020-11-19 04:16] LABS: Phosphorus 2.6 mg/dL (2.3-4.7)
[2020-11-19 05:55] LABS: Anisocytosis MODERATE=16-30 cells (100X) (0-5/hpf); Band 3 % (5-11); Elliptocytes SLIGHT = 2-5 cells (100X) (0-1/hpf); Hemoglobin 11.1 g/dL (14.0-18.0); Lymphocytes 5 % (21-51); MDiff Complete? YES; Mean Corpuscular HGB CONC 29.4 g/dL (32.0-36.0); Mean Corpuscular Hemoglobin 25.8 pg (27.0-31.0); Mean Corpuscular Volume 87.9 fL (78.0-98.0); Mean Platelet Volume 10.3 fL (7.4-10.4); Monocytes 9 % (0-10); Neutrophil 83 % (42-75); Platelet Count 188 thou/uL (130-400); RBC Distribution Width 24.5 % (11.5-14.5); White Blood Cell (WBC) Count 20.6 thou/uL (4.8-10.8)
[2020-11-19] MEDS: methylPREDNISolone Sod Succ 40 MG VIAL IVP SCH ×2 (06:10→07:49)
[2020-11-19] MEDS ORDERED: Magnesium 2 GM/50 ML 2 GM in Premix Bag 1 BAG IVPB SCH (06:30)
[2020-11-19] MEDS ORDERED: Potassium Chloride 40 MEQ in Sodium Chloride 0.9% 250 ML 250 ML IVPB SCH (06:30)
[2020-11-19] MEDS: Ferrous Sulfate 325 MG TAB PO SCH ×2 (07:22→17:49)
[2020-11-19] MEDS: levETIRAcetam 500 MG TAB PO SCH ×2 (07:23→21:05)
[2020-11-19] MEDS: Pantoprazole 40 MG GRANULES PACKET PER TUBE SCH (07:23)
[2020-11-19] MEDS: Enoxaparin Sodium 40 MG/0.4 ML SYRINGE SC SCH (07:24)
[2020-11-19] MEDS ORDERED: Potassium Chloride 20 MEQ TAB PO SCH (07:30)
[2020-11-19 07:39] LABS: Actual Bicarbonate (HCO3a) 25.1 mEq/L (22-28); Calcium, Ionized (arterial) 1.14 mmol/L (1.12-1.30); Carboxyhemoglobin (COHb) 1.3 gm% (0.0-3.0); Hemoglobin (Hb) 11.7 g/dL (14.0-18.0); O2 Tension (PaO2), arterial 80.5 mmHg (> 80.0); Potassium - ABG Lab 3.07 mmol/L (3.70-5.30); pH, Arterial 7.44 (7.35-7.45)
[2020-11-19] MEDS: NPH, Human Insulin Isophane 300 UNIT/3 ML VIAL SC SCH ×2 (07:49→21:08)
[2020-11-19 07:51] LABS: Puncture Site RRA
[2020-11-19] MEDS: Aluminum & Magnesium Hydroxide 60 ML, Lidocaine 2% Viscous Solution 30 ML, diphenhydrAM... SSW SCH ×2 (07:52→21:19)
[2020-11-19] MEDS: Thiamine HCl 200 MG/2 ML VIAL SLOW IVP SCH ×2 (17:54→18:47)
[2020-11-19] MEDS ORDERED: Furosemide 40 MG/4 ML VIAL SLOW IVP SCH (18:00)
[2020-11-19] MEDS: DULoxetine 60 MG CAP PO SCH (21:04)
[2020-11-20] MEDS: Metoclopramide HCl 10 MG/2 ML VIAL IVP SCH ×4 (02:52→20:04)
[2020-11-20] MEDS: Piperacillin/Tazobactam 3.375 GM in Sodium Chloride 0.9% 100 ML IVPB SCH ×4 (02:52→20:45)
[2020-11-20 07:08] LABS: Actual Bicarbonate (HCO3a) 29.2 mEq/L (22-28); Base Excess (BEa) 5.5 mEq/L (-2.0 to +3.0); Calcium, Ionized (arterial) 1.13 mmol/L (1.12-1.30); Carboxyhemoglobin (COHb) 1.1 gm% (0.0-3.0); Hemoglobin (Hb) 11.3 g/dL (14.0-18.0); O2 Tension (PaO2), arterial 65.5 mmHg (> 80.0); Potassium - ABG Lab 3.03 mmol/L (3.70-5.30); pH, Arterial 7.49 (7.35-7.45)
[2020-11-20 07:10] LABS: Puncture Site LRA
[2020-11-20] MEDS: Enoxaparin Sodium 40 MG/0.4 ML SYRINGE SC SCH (09:01)
[2020-11-20] MEDS: Propofol 1,000 MG/100 ML VIAL IV PRN ×2 (09:04→23:48)
[2020-11-20] MEDS: Pantoprazole 40 MG GRANULES PACKET PER TUBE SCH (09:11)
[2020-11-20] MEDS: levETIRAcetam 500 MG TAB PO SCH ×2 (09:11→20:43)
[2020-11-20] MEDS: methylPREDNISolone Sod Succ 40 MG VIAL IVP SCH (09:13)
[2020-11-20] MEDS: NPH, Human Insulin Isophane 300 UNIT/3 ML VIAL SC SCH ×3 (09:16→20:44)
[2020-11-20 10:07] LABS: Hemoglobin 10.1 g/dL (14.0-18.0); Mean Corpuscular HGB CONC 29.2 g/dL (32.0-36.0); Mean Corpuscular Hemoglobin 25.6 pg (27.0-31.0); Mean Corpuscular Volume 87.7 fL (78.0-98.0); Mean Platelet Volume 10.1 fL (7.4-10.4); Platelet Count 183 thou/uL (130-400); RBC Distribution Width 24.3 % (11.5-14.5); Red Blood Cell (RBC) Count 3.96 mill/uL (4.70-6.10); White Blood Cell (WBC) Count 19.1 thou/uL (4.8-10.8)
[2020-11-20 10:28] LABS: Phosphorus 2.5 mg/dL (2.3-4.7)
[2020-11-20] MEDS ORDERED: Furosemide 40 MG/4 ML VIAL SLOW IVP SCH ×2 (10:28→12:30)
[2020-11-20 10:29] LABS: Anion Gap 10 mmol/L (10-20); BUN (Urea Nitrogen) 25 mg/dL (8.4-25.7); Calc. Creatinine Clearance 116 mL/min (70-130); Calcium 7.4 mg/dL (7.8-10.44); Carbon Dioxide 25 mmol/L (23-31); Chloride 116 mmol/L (98-107); Glucose 95 mg/dL (80-115); Magnesium 1.9 mg/dL (1.6-2.6); Sodium 148 mmol/L (136-145)
[2020-11-20] MEDS ORDERED: Potassium Chloride 40 MEQ in Premix Bag 1 BAG IVPB SCH (10:45)
[2020-11-20] MEDS: Aluminum & Magnesium Hydroxide 60 ML, Lidocaine 2% Viscous Solution 30 ML, diphenhydrAM... SSW SCH ×2 (10:45→20:45)
[2020-11-20 11:06] LABS: Eosinophils 5 % (0-10); Hypersemented Neutrophil SLIGHT; Lymphocytes 17 % (21-51); MDiff Complete? YES; Metamyelocyte 1 % (0-0); Monocytes 9 % (0-10); Neutrophil 68 % (42-75); Platelet Morphology Comment Appears Adequate; Polychromasia SLIGHT = 2-3 cells (100X) (0-2/hpf)
[2020-11-20] MEDS ORDERED: Magnesium 2 GM/50 ML 2 GM in Premix Bag 1 BAG IVPB SCH (12:15)
[2020-11-20] MEDS: HumaLOG 300 UNITS/3 ML VIAL SC PRN (16:50)
[2020-11-20 17:10] LABS: Potassium 6.6 mmol/L (3.5-5.1)
[2020-11-20] MEDS: Thiamine HCl 200 MG/2 ML VIAL SLOW IVP SCH (18:37)
[2020-11-20 19:33] LABS: Potassium 5.7 mmol/L (3.5-5.1)
[2020-11-20] MEDS: Lorazepam 2 MG/ML VIAL SLOW IVP PRN (19:46)
[2020-11-21] MEDS: Piperacillin/Tazobactam 3.375 GM in Sodium Chloride 0.9% 100 ML IVPB SCH ×4 (02:19→20:19)
[2020-11-21] MEDS: Metoclopramide HCl 10 MG/2 ML VIAL IVP SCH ×4 (02:19→20:19)
[2020-11-21] MEDS: Morphine 4 MG/ML VIAL SLOW IVP PRN (02:33)
[2020-11-21 05:32] LABS: Anion Gap 11 mmol/L (10-20); BUN (Urea Nitrogen) 23 mg/dL (8.4-25.7); Calc. Creatinine Clearance 113 mL/min (70-130); Calcium 7.8 mg/dL (7.8-10.44); Carbon Dioxide 27 mmol/L (23-31); Chloride 112 mmol/L (98-107); Glucose 122 mg/dL (80-115); Potassium 2.8 mmol/L (3.5-5.1); Sodium 147 mmol/L (136-145)
[2020-11-21 06:01] LABS: #Eosinphils 0.5 thou/uL (0.0-0.7); #Lymphocytes 3.3 thou/uL (1.20-3.40); #Monocytes 1.8 thou/uL (0.11-0.59); #Neutrophils 10.2 thou/uL (1.40-6.50); %Basophils 0.2 % (0.0-1.0); %Eosinophils 2.9 % (0.0-10.0); %Lymphocytes 21.1 % (21.0-51.0); %Monocytes 11.5 % (0.0-10.0); %Neutrophils 64.3 % (42.0-75.0); Anisocytosis SLIGHT = 6-15 cells (100X) (0-5/hpf); Hemoglobin 11.6 g/dL (14.0-18.0); MDiff Complete? YES; Mean Corpuscular HGB CONC 29.8 g/dL (32.0-36.0); Mean Corpuscular Hemoglobin 26.3 pg (27.0-31.0); Mean Corpuscular Volume 88.2 fL (78.0-98.0); Mean Platelet Volume 10.8 fL (7.4-10.4); Platelet Count 162 thou/uL (130-400); RBC Distribution Width 24.5 % (11.5-14.5); Red Blood Cell (RBC) Count 4.42 mill/uL (4.70-6.10); White Blood Cell (WBC) Count 15.9 thou/uL (4.8-10.8)
[2020-11-21] MEDS ORDERED: Magnesium 2 GM/50 ML 2 GM in Premix Bag 1 BAG IVPB SCH (06:15)
[2020-11-21] MEDS: Potassium Chloride 20 MEQ in Premix Bag 1 BAG IVPB SCH ×3 (06:29→09:59)
[2020-11-21 07:32] LABS: Actual Bicarbonate (HCO3a) 27.7 mEq/L (22-28); Base Excess (BEa) 3.1 mEq/L (-2.0 to +3.0); CO2 Tension 42.2 mmHg (35.0-45.0); Calcium, Ionized (arterial) 1.13 mmol/L (1.12-1.30); Carboxyhemoglobin (COHb) 1.3 gm% (0.0-3.0); Hemoglobin (Hb) 11.7 g/dL (14.0-18.0); O2 Tension (PaO2), arterial 67.5 mmHg (> 80.0); Potassium - ABG Lab 3.17 mmol/L (3.70-5.30); pH, Arterial 7.44 (7.35-7.45)
[2020-11-21 07:33] LABS: Puncture Site LRA
[2020-11-21] MEDS ORDERED: Scopolamine 1.5 mg/72 hour Patch TD SCH (08:00)
[2020-11-21] MEDS: Enoxaparin Sodium 40 MG/0.4 ML SYRINGE SC SCH (08:20)
[2020-11-21] MEDS: levETIRAcetam 500 MG TAB PO SCH ×2 (08:21→20:19)
[2020-11-21] MEDS: Pantoprazole 40 MG GRANULES PACKET PER TUBE SCH (08:21)
[2020-11-21] MEDS: methylPREDNISolone Sod Succ 40 MG VIAL IVP SCH (08:24)
[2020-11-21] MEDS ORDERED: Furosemide 40 MG/4 ML VIAL SLOW IVP SCH (09:00)
[2020-11-21] MEDS: Aluminum & Magnesium Hydroxide 60 ML, Lidocaine 2% Viscous Solution 30 ML, diphenhydrAM... SSW SCH ×2 (09:53→21:58)
[2020-11-21] MEDS: NPH, Human Insulin Isophane 300 UNIT/3 ML VIAL SC SCH ×2 (09:55→21:59)
[2020-11-21] MEDS: Lorazepam 2 MG/ML VIAL SLOW IVP PRN ×2 (10:02→21:59)
[2020-11-21] MEDS: Propofol 1,000 MG/100 ML VIAL IV PRN (15:20)
[2020-11-21] MEDS: HumaLOG 300 UNITS/3 ML VIAL SC PRN (15:50)
[2020-11-21] MEDS: Thiamine HCl 200 MG/2 ML VIAL SLOW IVP SCH (16:45)
[2020-11-21 19:09] LABS: Potassium 3.3 mmol/L (3.5-5.1)
[2020-11-21] MEDS ORDERED: Potassium Chloride 20 MEQ TAB PO SCH (20:00)
[2020-11-21] MEDS: Acetaminophen 650 MG Suppository PR PRN (20:22)
[2020-11-21] MEDS ORDERED: Acetaminophen 325 MG Suppository PR SCH (22:45)
[2020-11-22] MEDS: Metoclopramide HCl 10 MG/2 ML VIAL IVP SCH ×4 (02:39→21:26)
[2020-11-22] MEDS: Piperacillin/Tazobactam 3.375 GM in Sodium Chloride 0.9% 100 ML IVPB SCH ×4 (02:39→21:25)
[2020-11-22] MEDS: Lorazepam 2 MG/ML VIAL SLOW IVP PRN (03:56)
[2020-11-22 04:47] LABS: Anion Gap 17 mmol/L (10-20); BUN (Urea Nitrogen) 24 mg/dL (8.4-25.7); Calc. Creatinine Clearance 91 mL/min (70-130); Carbon Dioxide 24 mmol/L (23-31); Chloride 111 mmol/L (98-107); Potassium 3.2 mmol/L (3.5-5.1); Sodium 149 mmol/L (136-145)
[2020-11-22 04:48] LABS: Calcium 8.4 mg/dL (7.8-10.44); Glucose 232 mg/dL (80-115)
[2020-11-22 05:17] LABS: Hemoglobin 12.1 g/dL (14.0-18.0); Mean Corpuscular HGB CONC 29.2 g/dL (32.0-36.0); Mean Corpuscular Hemoglobin 26.1 pg (27.0-31.0); Mean Corpuscular Volume 89.5 fL (78.0-98.0); Mean Platelet Volume 9.7 fL (7.4-10.4); Platelet Count 210 thou/uL (130-400); RBC Distribution Width 23.9 % (11.5-14.5); Red Blood Cell (RBC) Count 4.63 mill/uL (4.70-6.10); White Blood Cell (WBC) Count 21.8 thou/uL (4.8-10.8)
[2020-11-22 05:18] LABS: Band 24 % (5-11); Lymphocytes 12 % (21-51); MDiff Complete? YES; Monocytes 3 % (0-10); Neutrophil 61 % (42-75)
[2020-11-22] MEDS: HumaLOG 300 UNITS/3 ML VIAL SC PRN (05:25)
[2020-11-22] MEDS: Propofol 1,000 MG/100 ML VIAL IV PRN ×3 (05:34→19:55)
[2020-11-22] MEDS ORDERED: Potassium Chloride 40 MEQ in Sodium Chloride 0.9% 250 ML 250 ML IVPB SCH (07:30)
[2020-11-22 07:35] LABS: Actual Bicarbonate (HCO3a) 24.8 mEq/L (22-28); Base Excess (BEa) 1.9 mEq/L (-2.0 to +3.0); CO2 Tension 32.9 mmHg (35.0-45.0); Calcium, Ionized (arterial) 1.17 mmol/L (1.12-1.30); Carboxyhemoglobin (COHb) 1.6 gm% (0.0-3.0); Hemoglobin (Hb) 11.1 g/dL (14.0-18.0); Potassium - ABG Lab 2.33 mmol/L (3.70-5.30)
[2020-11-22 07:38] LABS: ALV-art Gradient 258.375 mmHg (0-20); Puncture Site LRA
[2020-11-22] MEDS: Ondansetron PF 4 MG/2 ML Vial IVP PRN (10:09)
[2020-11-22] MEDS: Pantoprazole 40 MG GRANULES PACKET PER TUBE SCH (10:09)
[2020-11-22] MEDS: levETIRAcetam 500 MG TAB PO SCH ×2 (10:09→21:25)
[2020-11-22] MEDS: Enoxaparin Sodium 40 MG/0.4 ML SYRINGE SC SCH (10:09)
[2020-11-22] MEDS: NPH, Human Insulin Isophane 300 UNIT/3 ML VIAL SC SCH ×2 (10:14→23:20)
[2020-11-22] MEDS: MEROPENEM 1 GM/50 ML 1 GM in Premix Bag 1 BAG IVPB SCH ×2 (10:17→17:26)
[2020-11-22] MEDS: Aluminum & Magnesium Hydroxide 60 ML, Lidocaine 2% Viscous Solution 30 ML, diphenhydrAM... SSW SCH ×2 (12:46→21:34)
[2020-11-22] MEDS ORDERED: Potassium Chloride 20 MEQ TAB PO SCH (15:30)
[2020-11-22] MEDS: Thiamine HCl 200 MG/2 ML VIAL SLOW IVP SCH (17:26)
[2020-11-23] MEDS: Metoclopramide HCl 10 MG/2 ML VIAL IVP SCH (01:49)
[2020-11-23] MEDS: MEROPENEM 1 GM/50 ML 1 GM in Premix Bag 1 BAG IVPB SCH ×3 (01:50→17:43)
[2020-11-23] MEDS: Piperacillin/Tazobactam 3.375 GM in Sodium Chloride 0.9% 100 ML IVPB SCH (02:30)
[2020-11-23 04:36] LABS: Anion Gap 12 mmol/L (10-20); BUN (Urea Nitrogen) 23 mg/dL (8.4-25.7); Calc. Creatinine Clearance 122 mL/min (70-130); Calcium 8.2 mg/dL (7.8-10.44); Carbon Dioxide 25 mmol/L (23-31); Chloride 120 mmol/L (98-107); Glucose 182 mg/dL (80-115); Sodium 155 mmol/L (136-145)
[2020-11-23 04:38] LABS: Potassium 2.2 mmol/L (3.5-5.1)
[2020-11-23 05:01] LABS: #Basophils 0.1 thou/uL (0.0-0.2); #Eosinphils 0.4 thou/uL (0.0-0.7); #Lymphocytes 2.4 thou/uL (1.20-3.40); #Monocytes 1.3 thou/uL (0.11-0.59); #Neutrophils 18.9 thou/uL (1.40-6.50); %Basophils 0.3 % (0.0-1.0); %Eosinophils 1.7 % (0.0-10.0); %Lymphocytes 10.6 % (21.0-51.0); %Monocytes 5.8 % (0.0-10.0); %Neutrophils 81.6 % (42.0-75.0); Anisocytosis MODERATE=16-30 cells (100X) (0-5/hpf); Hemoglobin 10.1 g/dL (14.0-18.0); MDiff Complete? YES; Mean Corpuscular HGB CONC 30.5 g/dL (32.0-36.0); Mean Corpuscular Hemoglobin 27.8 pg (27.0-31.0); Mean Platelet Volume 9.9 fL (7.4-10.4); Platelet Count 137 thou/uL (130-400); RBC Distribution Width 23.1 % (11.5-14.5); Red Blood Cell (RBC) Count 3.64 mill/uL (4.70-6.10); White Blood Cell (WBC) Count 23.2 thou/uL (4.8-10.8)
[2020-11-23] MEDS: Potassium Chloride 40 MEQ in Sodium Chloride 0.9% 250 ML 250 ML IVPB SCH ×2 (05:21→09:26)
[2020-11-23] MEDS: Propofol 1,000 MG/100 ML VIAL IV PRN ×3 (05:23→21:37)
[2020-11-23] MEDS ORDERED: Lactated Ringer's 1,000 ML IV SCH (05:30)
[2020-11-23 07:35] LABS: Actual Bicarbonate (HCO3a) 26.9 mEq/L (22-28); Base Excess (BEa) 2.6 mEq/L (-2.0 to +3.0); CO2 Tension 40.4 mmHg (35.0-45.0); Calcium, Ionized (arterial) 1.23 mmol/L (1.12-1.30); Carboxyhemoglobin (COHb) 0.7 gm% (0.0-3.0); O2 Tension (PaO2), arterial 66.5 mmHg (> 80.0); Potassium - ABG Lab 2.24 mmol/L (3.70-5.30); pH, Arterial 7.44 (7.35-7.45)
[2020-11-23 07:40] LABS: Puncture Site LRA
[2020-11-23 07:49] LABS: Anion Gap 10 mmol/L (10-20); BUN (Urea Nitrogen) 22 mg/dL (8.4-25.7); Calc. Creatinine Clearance 120 mL/min (70-130); Calcium 8.1 mg/dL (7.8-10.44); Carbon Dioxide 26 mmol/L (23-31); Chloride 120 mmol/L (98-107); Glucose 170 mg/dL (80-115); Sodium 154 mmol/L (136-145)
[2020-11-23 07:55] LABS: Potassium 2.3 mmol/L (3.5-5.1)
[2020-11-23] MEDS ORDERED: Loperamide HCl 2 MG CAP PER TUBE SCH (08:15)
[2020-11-23] MEDS ORDERED: Potassium Chloride 40 MEQ in Premix Bag 1 BAG IVPB SCH (08:45)
[2020-11-23] MEDS: Pantoprazole 40 MG GRANULES PACKET PER TUBE SCH (09:26)
[2020-11-23] MEDS: levETIRAcetam 500 MG TAB PO SCH ×2 (09:26→21:14)
[2020-11-23] MEDS: Enoxaparin Sodium 40 MG/0.4 ML SYRINGE SC SCH (09:26)
[2020-11-23] MEDS: NPH, Human Insulin Isophane 300 UNIT/3 ML VIAL SC SCH ×2 (09:27→21:32)
[2020-11-23 10:18] LABS: Creatinine, Urine 94.85 mg/dL (63-166); Potassium, Urine 22.6 mmol/L
[2020-11-23] MEDS: Aluminum & Magnesium Hydroxide 60 ML, Lidocaine 2% Viscous Solution 30 ML, diphenhydrAM... SSW SCH ×2 (10:39→21:14)
[2020-11-23] MEDS: Dextrose 5% in Water 1,000 ML IV SCH ×3 (10:42→22:46)
[2020-11-23] MEDS ORDERED: Potassium Phosphate 30 MMOL in Sodium Chloride 0.9% 500 ML IVPB SCH (12:00)
[2020-11-23 12:28] LABS: Phosphorus 1.5 mg/dL (2.3-4.7)
[2020-11-23 15:23] LABS: Anion Gap 12 mmol/L (10-20); BUN (Urea Nitrogen) 21 mg/dL (8.4-25.7); Calc. Creatinine Clearance 114 mL/min (70-130); Carbon Dioxide 23 mmol/L (23-31); Chloride 119 mmol/L (98-107); Glucose 225 mg/dL (80-115); Sodium 151 mmol/L (136-145)
[2020-11-23 15:28] LABS: Potassium 2.5 mmol/L (3.5-5.1)
[2020-11-23] MEDS ORDERED: Spironolactone 100 MG TAB PO SCH (16:15)
[2020-11-23] MEDS ORDERED: Fentanyl BOLUS 250 ML IVPB PRN (16:32)
[2020-11-23] MEDS ORDERED: Fentanyl CADD 100 ML IV SCH (16:45)
[2020-11-23] MEDS: Micafungin 100 MG in Sodium Chloride 0.9% 100 ML IVPB SCH (17:43)
[2020-11-23] MEDS ORDERED: Potassium Chloride 20 MEQ in Premix Bag 1 BAG IVPB SCH (18:00)
[2020-11-23] MEDS ORDERED: Potassium Phosphate 30 MMOL in Sodium Chloride 0.9% 250 ML 250 ML IVPB SCH ×2 (18:00→21:00)
[2020-11-23] MEDS: Ondansetron PF 4 MG/2 ML Vial IVP PRN (19:32)
[2020-11-23] MEDS: HumaLOG 300 UNITS/3 ML VIAL SC PRN (21:18)
[2020-11-23 23:09] LABS: Anion Gap 11 mmol/L (10-20); BUN (Urea Nitrogen) 19 mg/dL (8.4-25.7); Calc. Creatinine Clearance 130 mL/min (70-130); Calcium 7.4 mg/dL (7.8-10.44); Carbon Dioxide 25 mmol/L (23-31); Chloride 115 mmol/L (98-107); Glucose 209 mg/dL (80-115); Sodium 148 mmol/L (136-145)
[2020-11-23 23:11] LABS: Potassium 2.6 mmol/L (3.5-5.1)
[2020-11-24] MEDS: MEROPENEM 1 GM/50 ML 1 GM in Premix Bag 1 BAG IVPB SCH ×3 (02:17→18:04)
[2020-11-24] MEDS: Dextrose 5% in Water 1,000 ML IV SCH (05:46)
[2020-11-24] MEDS: Ondansetron PF 4 MG/2 ML Vial IVP PRN (05:46)
[2020-11-24] MEDS: Propofol 1,000 MG/100 ML VIAL IV PRN ×3 (05:46→16:33)
[2020-11-24 07:15] LABS: Anion Gap 11 mmol/L (10-20); BUN (Urea Nitrogen) 17 mg/dL (8.4-25.7); Calc. Creatinine Clearance 149 mL/min (70-130); Carbon Dioxide 22 mmol/L (23-31); Chloride 113 mmol/L (98-107); Glucose 116 mg/dL (80-115); Magnesium 1.5 mg/dL (1.6-2.6); Sodium 143 mmol/L (136-145)
[2020-11-24 07:18] LABS: Albumin 1.7 g/dL (3.4-4.8); Phosphorus 2.3 mg/dL (2.3-4.7)
[2020-11-24 07:20] LABS: Potassium 2.8 mmol/L (3.5-5.1)
[2020-11-24 07:23] LABS: Actual Bicarbonate (HCO3a) 27.7 mEq/L (22-28); Base Excess (BEa) 3.6 mEq/L (-2.0 to +3.0); CO2 Tension 39.7 mmHg (35.0-45.0); Calcium, Ionized (arterial) 1.09 mmol/L (1.12-1.30); Carboxyhemoglobin (COHb) 0.3 gm% (0.0-3.0); Hemoglobin (Hb) 9.2 g/dL (14.0-18.0); O2 Tension (PaO2), arterial 67.1 mmHg (> 80.0); pH, Arterial 7.46 (7.35-7.45)
[2020-11-24 07:24] LABS: ALV-art Gradient 239.775 mmHg (0-20); Puncture Site RRA
[2020-11-24] MEDS ORDERED: Dextrose 5% in Water 1,000 ML IV SCH (07:38)
[2020-11-24] MEDS ORDERED: Magnesium Sulfate 4 GM in Sodium Chloride 0.9% 250 ML 250 ML IVPB SCH (07:45)
[2020-11-24] MEDS ORDERED: Potassium Phosphate 30 MMOL in Sodium Chloride 0.9% 250 ML 250 ML IVPB SCH (07:45)
[2020-11-24] MEDS: Spironolactone 100 MG TAB PO SCH (08:23)
[2020-11-24] MEDS: Enoxaparin Sodium 40 MG/0.4 ML SYRINGE SC SCH (08:29)
[2020-11-24] MEDS: Pantoprazole 40 MG GRANULES PACKET PER TUBE SCH (08:29)
[2020-11-24] MEDS: Thiamine 100 MG TAB PER TUBE SCH (08:30)
[2020-11-24] MEDS: levETIRAcetam 500 MG TAB PO SCH ×2 (08:30→21:45)
[2020-11-24] MEDS: Aluminum & Magnesium Hydroxide 60 ML, Lidocaine 2% Viscous Solution 30 ML, diphenhydrAM... SSW SCH ×2 (09:00→21:47)
[2020-11-24] MEDS: NPH, Human Insulin Isophane 300 UNIT/3 ML VIAL SC SCH ×2 (10:30→21:47)
[2020-11-24] MEDS: Potassium Chloride 20 MEQ in Premix Bag 1 BAG IVPB SCH ×2 (11:18→12:53)
[2020-11-24] MEDS: Albumin 25% 25 GM/100 ML BOT IVPB SCH ×3 (12:57→23:51)
[2020-11-24 15:11] LABS: #Basophils 0.1 thou/uL (0.0-0.2); #Eosinphils 0.5 thou/uL (0.0-0.7); #Monocytes 0.9 thou/uL (0.11-0.59); %Basophils 0.3 % (0.0-1.0); %Eosinophils 2.7 % (0.0-10.0); %Lymphocytes 10.4 % (21.0-51.0); %Monocytes 4.6 % (0.0-10.0); Hemoglobin 8.4 g/dL (14.0-18.0); Mean Corpuscular HGB CONC 30.1 g/dL (32.0-36.0); Mean Corpuscular Hemoglobin 26.7 pg (27.0-31.0); Mean Corpuscular Volume 88.6 fL (78.0-98.0); Mean Platelet Volume 9.7 fL (7.4-10.4); Platelet Count 131 thou/uL (130-400); RBC Distribution Width 22.2 % (11.5-14.5); Red Blood Cell (RBC) Count 3.13 mill/uL (4.70-6.10); White Blood Cell (WBC) Count 19.5 thou/uL (4.8-10.8)
[2020-11-24 15:25] LABS: Potassium 3.5 mmol/L (3.5-5.1)
[2020-11-24] MEDS: Micafungin 100 MG in Sodium Chloride 0.9% 100 ML IVPB SCH (17:00)
[2020-11-25] MEDS: MEROPENEM 1 GM/50 ML 1 GM in Premix Bag 1 BAG IVPB SCH ×3 (02:10→17:41)
[2020-11-25] MEDS: Propofol 1,000 MG/100 ML VIAL IV PRN ×3 (02:10→21:29)
[2020-11-25 06:17] LABS: #Basophils 0.1 thou/uL (0.0-0.2); #Eosinphils 0.6 thou/uL (0.0-0.7); #Lymphocytes 1.6 thou/uL (1.20-3.40); #Neutrophils 14.1 thou/uL (1.40-6.50); %Basophils 0.4 % (0.0-1.0); %Eosinophils 3.3 % (0.0-10.0); %Monocytes 5.9 % (0.0-10.0); %Neutrophils 81.5 % (42.0-75.0); Hemoglobin 7.9 g/dL (14.0-18.0); Mean Corpuscular HGB CONC 32.1 g/dL (32.0-36.0); Mean Corpuscular Hemoglobin 28.7 pg (27.0-31.0); Mean Corpuscular Volume 89.3 fL (78.0-98.0); Mean Platelet Volume 9.3 fL (7.4-10.4); Platelet Count 132 thou/uL (130-400); RBC Distribution Width 22.5 % (11.5-14.5); Red Blood Cell (RBC) Count 2.77 mill/uL (4.70-6.10); White Blood Cell (WBC) Count 17.3 thou/uL (4.8-10.8)
[2020-11-25] MEDS: Albumin 25% 25 GM/100 ML BOT IVPB SCH ×2 (06:20→11:37)
[2020-11-25 06:35] LABS: Albumin 2.6 g/dL (3.4-4.8); Anion Gap 12 mmol/L (10-20); BUN (Urea Nitrogen) 11 mg/dL (8.4-25.7); Calc. Creatinine Clearance 138 mL/min (70-130); Calcium 7.4 mg/dL (7.8-10.44); Carbon Dioxide 23 mmol/L (23-31); Chloride 111 mmol/L (98-107); Glucose 103 mg/dL (80-115); Magnesium 1.9 mg/dL (1.6-2.6); Phosphorus 1.5 mg/dL (2.3-4.7); Potassium 3.4 mmol/L (3.5-5.1); Sodium 143 mmol/L (136-145)
[2020-11-25] MEDS ORDERED: Magnesium 2 GM/50 ML 2 GM in Premix Bag 1 BAG IVPB SCH (06:45)
[2020-11-25] MEDS ORDERED: Potassium Phosphate 22 MMOL in Sodium Chloride 0.9% 250 ML 250 ML IVPB SCH (07:00)
[2020-11-25 07:14] LABS: Actual Bicarbonate (HCO3a) 26.5 mEq/L (22-28); Base Excess (BEa) 3.1 mEq/L (-2.0 to +3.0); CO2 Tension 35.5 mmHg (35.0-45.0); Calcium, Ionized (arterial) 1.08 mmol/L (1.12-1.30); Carboxyhemoglobin (COHb) 1.1 gm% (0.0-3.0); Hemoglobin (Hb) 7.9 g/dL (14.0-18.0); Potassium - ABG Lab 2.91 mmol/L (3.70-5.30); pH, Arterial 7.49 (7.35-7.45)
[2020-11-25 07:18] LABS: O2 Tension (PaO2), arterial 56.5 mmHg (> 80.0); Puncture Site RRA
[2020-11-25 07:19] LABS: ALV-art Gradient 255.625 mmHg (0-20)
[2020-11-25] MEDS: Lorazepam 2 MG/ML VIAL SLOW IVP PRN ×2 (07:49→21:29)
[2020-11-25] MEDS: Pantoprazole 40 MG GRANULES PACKET PER TUBE SCH (08:39)
[2020-11-25] MEDS: Thiamine 100 MG TAB PER TUBE SCH (08:39)
[2020-11-25] MEDS: levETIRAcetam 500 MG TAB PO SCH ×2 (08:39→21:26)
[2020-11-25] MEDS: Enoxaparin Sodium 40 MG/0.4 ML SYRINGE SC SCH (08:40)
[2020-11-25] MEDS: Aluminum & Magnesium Hydroxide 60 ML, Lidocaine 2% Viscous Solution 30 ML, diphenhydrAM... SSW SCH ×2 (08:41→21:25)
[2020-11-25] MEDS: Spironolactone 100 MG TAB PO SCH (08:42)
[2020-11-25] MEDS: NPH, Human Insulin Isophane 300 UNIT/3 ML VIAL SC SCH ×2 (08:43→21:26)
[2020-11-25] MEDS: Metoclopramide HCl 10 MG/2 ML VIAL IVP SCH ×2 (13:33→21:29)
[2020-11-25] MEDS: Potassium Bicarbonate/Cit Ac 20 MEQ TAB PO SCH ×2 (14:22→21:26)
[2020-11-25] MEDS ORDERED: Dextrose 50% Abboject 50 ML SYRINGE ONE (15:47)
[2020-11-25] MEDS: Micafungin 100 MG in Sodium Chloride 0.9% 100 ML IVPB SCH (18:09)
[2020-11-26] MEDS: MEROPENEM 1 GM/50 ML 1 GM in Premix Bag 1 BAG IVPB SCH ×3 (02:13→17:26)
[2020-11-26] MEDS: Propofol 1,000 MG/100 ML VIAL IV PRN ×4 (03:54→21:00)
[2020-11-26] MEDS: Metoclopramide HCl 10 MG/2 ML VIAL IVP SCH ×3 (05:18→21:07)
[2020-11-26 05:41] LABS: Hemoglobin 8.5 g/dL (14.0-18.0); Mean Corpuscular HGB CONC 31.4 g/dL (32.0-36.0); Mean Corpuscular Volume 89.3 fL (78.0-98.0); Mean Platelet Volume 10.1 fL (7.4-10.4); Platelet Count 134 thou/uL (130-400); RBC Distribution Width 22.5 % (11.5-14.5); Red Blood Cell (RBC) Count 3.03 mill/uL (4.70-6.10); White Blood Cell (WBC) Count 16.3 thou/uL (4.8-10.8)
[2020-11-26 05:42] LABS: Albumin 2.6 g/dL (3.4-4.8); Anion Gap 8 mmol/L (10-20); BUN (Urea Nitrogen) 13 mg/dL (8.4-25.7); Calc. Creatinine Clearance 148 mL/min (70-130); Calcium 7.9 mg/dL (7.8-10.44); Carbon Dioxide 29 mmol/L (23-31); Chloride 108 mmol/L (98-107); Glucose 111 mg/dL (80-115); Potassium 4.1 mmol/L (3.5-5.1); Sodium 141 mmol/L (136-145)
[2020-11-26 05:46] LABS: Phosphorus 1.7 mg/dL (2.3-4.7)
[2020-11-26 06:05] LABS: Band 3 % (5-11); Eosinophils 3 % (0-10); Hypochromia SLIGHT = 6-15 cells (100X) (0-5/hpf); Lymphocytes 8 % (21-51); MDiff Complete? YES; Monocytes 3 % (0-10); Neutrophil 83 % (42-75); Platelet Morphology Comment Appears Adequate
[2020-11-26] MEDS ORDERED: Potassium Phosphate 30 MMOL in Sodium Chloride 0.9% 250 ML 250 ML IVPB SCH (07:00)
[2020-11-26] MEDS ORDERED: Magnesium 2 GM/50 ML 2 GM in Premix Bag 1 BAG IVPB SCH (07:00)
[2020-11-26 07:13] LABS: Actual Bicarbonate (HCO3a) 26.8 mEq/L (22-28); Base Excess (BEa) 3.2 mEq/L (-2.0 to +3.0); CO2 Tension 36.6 mmHg (35.0-45.0); Hemoglobin (Hb) 8.9 g/dL (14.0-18.0); pH, Arterial 7.48 (7.35-7.45)
[2020-11-26 07:14] LABS: O2 Tension (PaO2), arterial 46.8 mmHg (> 80.0)
[2020-11-26 07:15] LABS: Puncture Site RRA
[2020-11-26] MEDS: Aluminum & Magnesium Hydroxide 60 ML, Lidocaine 2% Viscous Solution 30 ML, diphenhydrAM... SSW SCH ×2 (08:32→21:35)
[2020-11-26] MEDS: Thiamine 100 MG TAB PER TUBE SCH (08:41)
[2020-11-26] MEDS: Spironolactone 100 MG TAB PO SCH (08:41)
[2020-11-26] MEDS: Pantoprazole 40 MG GRANULES PACKET PER TUBE SCH (08:41)
[2020-11-26] MEDS: Potassium Bicarbonate/Cit Ac 20 MEQ TAB PO SCH ×3 (08:41→21:05)
[2020-11-26] MEDS: levETIRAcetam 500 MG TAB PO SCH ×2 (08:42→21:05)
[2020-11-26] MEDS: Enoxaparin Sodium 40 MG/0.4 ML SYRINGE SC SCH (08:42)
[2020-11-26] MEDS ORDERED: Torsemide 10 MG TAB PER TUBE SCH (09:00)
[2020-11-26] MEDS: Lorazepam 2 MG/ML VIAL SLOW IVP PRN ×4 (10:49→20:30)
[2020-11-26] MEDS: NPH, Human Insulin Isophane 300 UNIT/3 ML VIAL SC SCH ×2 (14:09→21:06)
[2020-11-26] MEDS: Micafungin 100 MG in Sodium Chloride 0.9% 100 ML IVPB SCH (20:59)
[2020-11-26] MEDS: HumaLOG 300 UNITS/3 ML VIAL SC PRN (21:09)
[2020-11-26] MEDS: Morphine 4 MG/ML VIAL SLOW IVP PRN (22:12)
[2020-11-27] MEDS: MEROPENEM 1 GM/50 ML 1 GM in Premix Bag 1 BAG IVPB SCH (01:25)
[2020-11-27] MEDS: Propofol 1,000 MG/100 ML VIAL IV PRN ×3 (01:30→17:26)
[2020-11-27] MEDS: Lorazepam 2 MG/ML VIAL SLOW IVP PRN (01:52)
[2020-11-27] MEDS: Morphine 4 MG/ML VIAL SLOW IVP PRN (02:32)
[2020-11-27 04:29] LABS: #Basophils 0.1 thou/uL (0.0-0.2); #Eosinphils 0.6 thou/uL (0.0-0.7); #Lymphocytes 1.2 thou/uL (1.20-3.40); #Monocytes 0.6 thou/uL (0.11-0.59); #Neutrophils 10.2 thou/uL (1.40-6.50); %Basophils 0.5 % (0.0-1.0); %Eosinophils 4.5 % (0.0-10.0); %Lymphocytes 9.7 % (21.0-51.0); %Monocytes 5.1 % (0.0-10.0); %Neutrophils 80.3 % (42.0-75.0); Hemoglobin 8.5 g/dL (14.0-18.0); Mean Corpuscular HGB CONC 31.2 g/dL (32.0-36.0); Mean Corpuscular Hemoglobin 27.8 pg (27.0-31.0); Mean Corpuscular Volume 89.1 fL (78.0-98.0); Mean Platelet Volume 9.5 fL (7.4-10.4); Platelet Count 141 thou/uL (130-400); RBC Distribution Width 22.4 % (11.5-14.5); Red Blood Cell (RBC) Count 3.04 mill/uL (4.70-6.10); White Blood Cell (WBC) Count 12.7 thou/uL (4.8-10.8)
[2020-11-27 04:47] LABS: Anion Gap 9 mmol/L (10-20); BUN (Urea Nitrogen) 16 mg/dL (8.4-25.7); Calc. Creatinine Clearance 153 mL/min (70-130); Calcium 7.6 mg/dL (7.8-10.44); Carbon Dioxide 29 mmol/L (23-31); Chloride 107 mmol/L (98-107); Glucose 183 mg/dL (80-115); Potassium 4.9 mmol/L (3.5-5.1); Sodium 140 mmol/L (136-145)
[2020-11-27] MEDS: Metoclopramide HCl 10 MG/2 ML VIAL IVP SCH ×3 (05:52→20:16)
[2020-11-27] MEDS: HumaLOG 300 UNITS/3 ML VIAL SC PRN (05:52)
[2020-11-27 07:13] LABS: Base Excess (BEa) 4.6 mEq/L (-2.0 to +3.0); CO2 Tension 42.6 mmHg (35.0-45.0); Calcium, Ionized (arterial) 1.09 mmol/L (1.12-1.30); Carboxyhemoglobin (COHb) 1.2 gm% (0.0-3.0); Hemoglobin (Hb) 10.5 g/dL (14.0-18.0); Potassium - ABG Lab 4.67 mmol/L (3.70-5.30); pH, Arterial 7.45 (7.35-7.45)
[2020-11-27 07:18] LABS: Puncture Site RRA
[2020-11-27] MEDS ORDERED: Vecuronium 10 MG VIAL IV SCH (07:30)
[2020-11-27] MEDS ORDERED: Lidocaine 1% w/Epinephrine 1:100K 20 ML VIAL FS SCH (07:30)
[2020-11-27] MEDS ORDERED: Fentanyl 100 MCG/2 ML VIAL SLOW IVP SCH (07:30)
[2020-11-27] MEDS ORDERED: Midazolam HCl 2 mg/2 ml Vial FS SCH ×2 (07:30)
[2020-11-27 07:33] LABS: Albumin 2.2 g/dL (3.4-4.8); Phosphorus 2.3 mg/dL (2.3-4.7)
[2020-11-27] MEDS ORDERED: Magnesium 2 GM/50 ML 2 GM in Premix Bag 1 BAG IVPB SCH (08:15)
[2020-11-27] MEDS: Fentanyl 100 MCG/2 ML VIAL SLOW IVP SCH ×2 (08:19→08:37)
[2020-11-27] MEDS ORDERED: CEFAZOLIN 2 GM in Premix Bag 1 BAG IVPB SCH (08:30)
[2020-11-27] MEDS ORDERED: Vecuronium 10 MG VIAL IVP PRN (09:09)
[2020-11-27] MEDS ORDERED: Vecuronium 10 MG VIAL ONE (09:12)
[2020-11-27] MEDS ORDERED: VANCOMYCIN 2 GRAM/400 ML BAG 2 GM in Premix Bag 1 BAG IVPB SCH (10:00)
[2020-11-27] MEDS: Cefepime 1 GM in Sodium Chloride 0.9% 100 ML IVPB SCH ×2 (10:04→20:15)
[2020-11-27] MEDS: Spironolactone 100 MG TAB PO SCH (10:05)
[2020-11-27] MEDS: Potassium Bicarbonate/Cit Ac 20 MEQ TAB PO SCH ×3 (10:05→20:16)
[2020-11-27] MEDS: Thiamine 100 MG TAB PER TUBE SCH (10:06)
[2020-11-27] MEDS: levETIRAcetam 500 MG TAB PO SCH ×2 (10:06→20:16)
[2020-11-27] MEDS: Pantoprazole 40 MG GRANULES PACKET PER TUBE SCH (10:06)
[2020-11-27] MEDS: Torsemide 10 MG TAB PER TUBE SCH (10:28)
[2020-11-27] MEDS: NPH, Human Insulin Isophane 300 UNIT/3 ML VIAL SC SCH ×2 (10:29→20:20)
[2020-11-27] MEDS: Aluminum & Magnesium Hydroxide 60 ML, Lidocaine 2% Viscous Solution 30 ML, diphenhydrAM... SSW SCH ×2 (11:48→20:20)
[2020-11-27] MEDS: Albumin 25% 25 GM/100 ML BOT IVPB SCH ×2 (12:56→17:22)
[2020-11-27] MEDS: Micafungin 100 MG in Sodium Chloride 0.9% 100 ML IVPB SCH (17:22)
[2020-11-27] MEDS: Vancomycin 1 GM in Premix Bag 1 BAG IVPB SCH (20:20)
[2020-11-28] MEDS: Propofol 1,000 MG/100 ML VIAL IV PRN ×3 (00:12→18:20)
[2020-11-28] MEDS: Albumin 25% 25 GM/100 ML BOT IVPB SCH ×2 (00:12→05:36)
[2020-11-28] MEDS: Lorazepam 2 MG/ML VIAL SLOW IVP PRN ×2 (00:12→07:53)
[2020-11-28 04:18] LABS: #Eosinphils 0.5 thou/uL (0.0-0.7); #Lymphocytes 1.4 thou/uL (1.20-3.40); #Monocytes 0.6 thou/uL (0.11-0.59); %Basophils 0.3 % (0.0-1.0); %Lymphocytes 10.2 % (21.0-51.0); %Monocytes 4.6 % (0.0-10.0); %Neutrophils 80.9 % (42.0-75.0); Hemoglobin 7.9 g/dL (14.0-18.0); Mean Corpuscular Hemoglobin 28.5 pg (27.0-31.0); Mean Corpuscular Volume 88.8 fL (78.0-98.0); Mean Platelet Volume 9.6 fL (7.4-10.4); Platelet Count 134 thou/uL (130-400); RBC Distribution Width 22.3 % (11.5-14.5); Red Blood Cell (RBC) Count 2.76 mill/uL (4.70-6.10); White Blood Cell (WBC) Count 13.6 thou/uL (4.8-10.8)
[2020-11-28 04:37] LABS: Albumin 3.1 g/dL (3.4-4.8); Anion Gap 12 mmol/L (10-20); BUN (Urea Nitrogen) 13 mg/dL (8.4-25.7); Calc. Creatinine Clearance 164 mL/min (70-130); Calcium 8.2 mg/dL (7.8-10.44); Carbon Dioxide 29 mmol/L (23-31); Chloride 106 mmol/L (98-107); Glucose 129 mg/dL (80-115); Potassium 4.3 mmol/L (3.5-5.1); Sodium 143 mmol/L (136-145)
[2020-11-28] MEDS ORDERED: Potassium Phosphate 15 MMOL in Sodium Chloride 0.9% 100 ML IVPB SCH (05:00)
[2020-11-28] MEDS: Metoclopramide HCl 10 MG/2 ML VIAL IVP SCH (05:36)
[2020-11-28 07:35] LABS: Actual Bicarbonate (HCO3a) 30.9 mEq/L (22-28); Base Excess (BEa) 6.4 mEq/L (-2.0 to +3.0); CO2 Tension 44.6 mmHg (35.0-45.0); Calcium, Ionized (arterial) 1.09 mmol/L (1.12-1.30); Carboxyhemoglobin (COHb) 1.1 gm% (0.0-3.0); Hemoglobin (Hb) 8.3 g/dL (14.0-18.0); O2 Tension (PaO2), arterial 61.8 mmHg (> 80.0); Potassium - ABG Lab 4.27 mmol/L (3.70-5.30); pH, Arterial 7.46 (7.35-7.45)
[2020-11-28 07:36] LABS: Puncture Site RRA
[2020-11-28] MEDS: Vecuronium 10 MG VIAL IVP PRN ×4 (08:41→20:35)
[2020-11-28] MEDS: Vancomycin 1 GM in Premix Bag 1 BAG IVPB SCH (09:51)
[2020-11-28] MEDS: Cefepime 1 GM in Sodium Chloride 0.9% 100 ML IVPB SCH ×2 (09:52→20:35)
[2020-11-28] MEDS: Pantoprazole 40 MG GRANULES PACKET PER TUBE SCH (09:54)
[2020-11-28] MEDS: Thiamine 100 MG TAB PER TUBE SCH (09:54)
[2020-11-28] MEDS: Spironolactone 100 MG TAB PO SCH (09:54)
[2020-11-28] MEDS: levETIRAcetam 500 MG TAB PO SCH ×2 (09:54→20:35)
[2020-11-28] MEDS: Potassium Bicarbonate/Cit Ac 20 MEQ TAB PO SCH ×2 (09:54→15:55)
[2020-11-28] MEDS: NPH, Human Insulin Isophane 300 UNIT/3 ML VIAL SC SCH ×2 (09:55→21:03)
[2020-11-28] MEDS: Torsemide 10 MG TAB PER TUBE SCH (09:55)
[2020-11-28] MEDS: Enoxaparin Sodium 40 MG/0.4 ML SYRINGE SC SCH (10:24)
[2020-11-28] MEDS: Sterile Water 10 ML VIAL FS PRN ×2 (10:28→14:50)
[2020-11-28] MEDS: Aluminum & Magnesium Hydroxide 60 ML, Lidocaine 2% Viscous Solution 30 ML, diphenhydrAM... SSW SCH (16:45)
[2020-11-28] MEDS: Micafungin 100 MG in Sodium Chloride 0.9% 100 ML IVPB SCH (18:20)
[2020-11-28] MEDS: PHOS-NAK 1 PKT PACK PO SCH (20:35)
[2020-11-28 21:27] LABS: Vancomycin, Trough 19.1 ug/mL
[2020-11-28] MEDS: Vancomycin HCl 750 MG in Sodium Chloride 0.9% 250 ML 250 ML IVPB SCH (22:03)
[2020-11-29] MEDS: Propofol 1,000 MG/100 ML VIAL IV PRN ×3 (01:29→23:10)
[2020-11-29] MEDS: Vecuronium 10 MG VIAL IVP PRN ×6 (01:29→23:51)
[2020-11-29 06:44] LABS: Hemoglobin 9.2 g/dL (14.0-18.0); Mean Corpuscular HGB CONC 30.2 g/dL (32.0-36.0); Mean Corpuscular Hemoglobin 26.9 pg (27.0-31.0); Mean Corpuscular Volume 89.1 fL (78.0-98.0); Mean Platelet Volume 10.3 fL (7.4-10.4); Platelet Count 141 thou/uL (130-400); RBC Distribution Width 22.4 % (11.5-14.5); Red Blood Cell (RBC) Count 3.43 mill/uL (4.70-6.10)
[2020-11-29 07:07] LABS: Anion Gap 13 mmol/L (10-20); BUN (Urea Nitrogen) 12 mg/dL (8.4-25.7); Calc. Creatinine Clearance 152 mL/min (70-130); Calcium 8.2 mg/dL (7.8-10.44); Carbon Dioxide 30 mmol/L (23-31); Chloride 104 mmol/L (98-107); Glucose 138 mg/dL (80-115); Sodium 143 mmol/L (136-145)
[2020-11-29 07:16] LABS: Actual Bicarbonate (HCO3a) 33.1 mEq/L (22-28); Base Excess (BEa) 8.8 mEq/L (-2.0 to +3.0); Calcium, Ionized (arterial) 1.13 mmol/L (1.12-1.30); Carboxyhemoglobin (COHb) 1.1 gm% (0.0-3.0); Hemoglobin (Hb) 9.2 g/dL (14.0-18.0); pH, Arterial 7.49 (7.35-7.45)
[2020-11-29 07:17] LABS: Puncture Site RRA
[2020-11-29 07:19] LABS: Phosphorus 2.5 mg/dL (2.3-4.7)
[2020-11-29] MEDS ORDERED: Magnesium 2 GM/50 ML 2 GM in Premix Bag 1 BAG IVPB SCH (08:00)
[2020-11-29 08:28] LABS: Band 12 % (5-11); Eosinophils 2 % (0-10); Hypochromia SLIGHT = 6-15 cells (100X) (0-5/hpf); Lymphocytes 8 % (21-51); MDiff Complete? YES; Metamyelocyte 1 % (0-0); Monocytes 7 % (0-10); Myelocyte 1 % (0-0); Neutrophil 68 % (42-75); Platelet Morphology Comment Appears Decreased; Polychromasia SLIGHT = 2-3 cells (100X) (0-2/hpf); Reactive Lymphocytes 1 % (0-10)
[2020-11-29] MEDS ORDERED: Ergocalciferol 1.25 MG(50,000 UNITS) CAP PO SCH (09:00)
[2020-11-29] MEDS: Cefepime 1 GM in Sodium Chloride 0.9% 100 ML IVPB SCH ×2 (09:25→20:11)
[2020-11-29] MEDS: Thiamine 100 MG TAB PER TUBE SCH (09:26)
[2020-11-29] MEDS: levETIRAcetam 500 MG TAB PO SCH ×2 (09:27→20:12)
[2020-11-29] MEDS: PHOS-NAK 1 PKT PACK PO SCH ×3 (09:27→20:12)
[2020-11-29] MEDS: Torsemide 10 MG TAB PER TUBE SCH (09:27)
[2020-11-29] MEDS: Spironolactone 100 MG TAB PO SCH (09:28)
[2020-11-29] MEDS: Pantoprazole 40 MG GRANULES PACKET PER TUBE SCH (09:28)
[2020-11-29] MEDS: Enoxaparin Sodium 40 MG/0.4 ML SYRINGE SC SCH (09:28)
[2020-11-29] MEDS: NPH, Human Insulin Isophane 300 UNIT/3 ML VIAL SC SCH ×2 (09:29→20:13)
[2020-11-29] MEDS: Vancomycin HCl 750 MG in Sodium Chloride 0.9% 250 ML 250 ML IVPB SCH ×2 (09:32→21:45)
[2020-11-29] MEDS: Lorazepam 2 MG/ML VIAL SLOW IVP PRN ×3 (09:36→19:36)
[2020-11-29] MEDS: Sterile Water 10 ML VIAL FS PRN ×4 (09:38→23:51)
[2020-11-29] MEDS: HumaLOG 300 UNITS/3 ML VIAL SC PRN ×2 (10:14→15:48)
[2020-11-29 14:10] VITALS: BMI 27.4
[2020-11-29] MEDS: Micafungin 100 MG in Sodium Chloride 0.9% 100 ML IVPB SCH (17:34)
[2020-11-30] MEDS: Sterile Water 10 ML VIAL FS PRN ×3 (03:34→20:54)
[2020-11-30] MEDS: Vecuronium 10 MG VIAL IVP PRN ×6 (03:34→20:54)
[2020-11-30] MEDS: Lorazepam 2 MG/ML VIAL SLOW IVP PRN ×6 (03:34→20:56)
[2020-11-30 04:07] LABS: #Basophils 0.1 thou/uL (0.0-0.2); #Eosinphils 0.8 thou/uL (0.0-0.7); #Lymphocytes 2.1 thou/uL (1.20-3.40); #Monocytes 0.8 thou/uL (0.11-0.59); #Neutrophils 13.3 thou/uL (1.40-6.50); %Basophils 0.3 % (0.0-1.0); %Eosinophils 4.5 % (0.0-10.0); %Lymphocytes 12.4 % (21.0-51.0); %Monocytes 4.4 % (0.0-10.0); %Neutrophils 78.4 % (42.0-75.0); Hemoglobin 8.6 g/dL (14.0-18.0); Mean Corpuscular HGB CONC 29.7 g/dL (32.0-36.0); Mean Corpuscular Volume 90.7 fL (78.0-98.0); Platelet Count 146 thou/uL (130-400); RBC Distribution Width 22.2 % (11.5-14.5); Red Blood Cell (RBC) Count 3.18 mill/uL (4.70-6.10)
[2020-11-30 04:24] LABS: BUN (Urea Nitrogen) 16 mg/dL (8.4-25.7); Calc. Creatinine Clearance 152 mL/min (70-130); Calcium 8.3 mg/dL (7.8-10.44); Glucose 103 mg/dL (80-115)
[2020-11-30 04:33] LABS: Anion Gap 15 mmol/L (10-20); Carbon Dioxide 31 mmol/L (23-31); Chloride 103 mmol/L (98-107); Potassium 3.5 mmol/L (3.5-5.1); Sodium 145 mmol/L (136-145)
[2020-11-30] MEDS ORDERED: Potassium Bicarbonate/Cit Ac 20 MEQ TAB PER TUBE SCH (05:30)
[2020-11-30 06:52] LABS: Actual Bicarbonate (HCO3a) 35.7 mEq/L (22-28); Base Excess (BEa) 7.5 mEq/L (-2.0 to +3.0); Calcium, Ionized (arterial) 1.15 mmol/L (1.12-1.30); Carboxyhemoglobin (COHb) 0.8 gm% (0.0-3.0); Hemoglobin (Hb) 9.8 g/dL (14.0-18.0); O2 Tension (PaO2), arterial 73.1 mmHg (> 80.0); Potassium - ABG Lab 3.99 mmol/L (3.70-5.30)
[2020-11-30 07:23] LABS: CO2 Tension 74.3 mmHg (35.0-45.0)
[2020-11-30 07:24] LABS: ALV-art Gradient 333.125 mmHg (0-20); Puncture Site RRA
[2020-11-30] MEDS: Propofol 1,000 MG/100 ML VIAL IV PRN ×2 (09:43→19:40)
[2020-11-30] MEDS: Torsemide 10 MG TAB PER TUBE SCH (09:44)
[2020-11-30] MEDS: Cefepime 1 GM in Sodium Chloride 0.9% 100 ML IVPB SCH ×2 (09:45→20:34)
[2020-11-30] MEDS: Vancomycin HCl 750 MG in Sodium Chloride 0.9% 250 ML 250 ML IVPB SCH ×2 (09:45→21:49)
[2020-11-30] MEDS: Spironolactone 100 MG TAB PO SCH (09:45)
[2020-11-30] MEDS: Enoxaparin Sodium 40 MG/0.4 ML SYRINGE SC SCH (09:45)
[2020-11-30] MEDS: NPH, Human Insulin Isophane 300 UNIT/3 ML VIAL SC SCH ×2 (09:46→20:36)
[2020-11-30] MEDS: PHOS-NAK 1 PKT PACK PO SCH ×3 (09:46→20:34)
[2020-11-30] MEDS: Pantoprazole 40 MG GRANULES PACKET PER TUBE SCH (09:46)
[2020-11-30] MEDS: levETIRAcetam 500 MG TAB PO SCH ×2 (09:46→20:34)
[2020-11-30] MEDS: Thiamine 100 MG TAB PER TUBE SCH (09:47)
[2020-11-30 10:42] LABS: Vancomycin, Trough 15.7 ug/mL
[2020-11-30] MEDS ORDERED: Spironolactone 100 MG TAB PO SCH ×2 (11:15)
[2020-11-30] MEDS ORDERED: Torsemide 20 MG TAB PER TUBE SCH (12:45)
[2020-12-01] MEDS: Lorazepam 2 MG/ML VIAL SLOW IVP PRN ×4 (03:09→15:40)
[2020-12-01] MEDS: Sterile Water 10 ML VIAL FS PRN (03:09)
[2020-12-01] MEDS: Vecuronium 10 MG VIAL IVP PRN (03:09)
[2020-12-01 04:02] LABS: #Basophils 0.1 thou/uL (0.0-0.2); #Eosinphils 0.8 thou/uL (0.0-0.7); #Lymphocytes 2.5 thou/uL (1.20-3.40); #Monocytes 1.2 thou/uL (0.11-0.59); %Basophils 0.3 % (0.0-1.0); %Eosinophils 4.5 % (0.0-10.0); %Lymphocytes 14.2 % (21.0-51.0); Hemoglobin 8.8 g/dL (14.0-18.0); Mean Corpuscular Hemoglobin 27.9 pg (27.0-31.0); Mean Corpuscular Volume 89.9 fL (78.0-98.0); Mean Platelet Volume 9.7 fL (7.4-10.4); Platelet Count 135 thou/uL (130-400); RBC Distribution Width 22.3 % (11.5-14.5); Red Blood Cell (RBC) Count 3.14 mill/uL (4.70-6.10); White Blood Cell (WBC) Count 17.6 thou/uL (4.8-10.8)
[2020-12-01 04:40] LABS: BUN (Urea Nitrogen) 16 mg/dL (8.4-25.7); Calc. Creatinine Clearance 135 mL/min (70-130); Calcium 8.6 mg/dL (7.8-10.44); Glucose 74 mg/dL (80-115)
[2020-12-01 04:49] LABS: Anion Gap 11 mmol/L (10-20); Carbon Dioxide 40 mmol/L (23-31); Chloride 100 mmol/L (98-107); Potassium 3.7 mmol/L (3.5-5.1); Sodium 147 mmol/L (136-145)
[2020-12-01] MEDS: Propofol 1,000 MG/100 ML VIAL IV PRN (06:11)
[2020-12-01 06:58] LABS: Actual Bicarbonate (HCO3a) 36.5 mEq/L (22-28); Base Excess (BEa) 12.5 mEq/L (-2.0 to +3.0); CO2 Tension 45.1 mmHg (35.0-45.0); Calcium, Ionized (arterial) 1.09 mmol/L (1.12-1.30); Carboxyhemoglobin (COHb) 1.3 gm% (0.0-3.0); Hemoglobin (Hb) 8.2 g/dL (14.0-18.0); Potassium - ABG Lab 3.47 mmol/L (3.70-5.30); pH, Arterial 7.53 (7.35-7.45)
[2020-12-01 07:35] LABS: ALV-art Gradient 397.025 mmHg (0-20); O2 Tension (PaO2), arterial 45.7 mmHg (> 80.0); Puncture Site RRA
[2020-12-01] MEDS ORDERED: Torsemide 20 MG TAB PER TUBE SCH ×2 (09:00)
[2020-12-01] MEDS ORDERED: NPH, Human Insulin Isophane 300 UNIT/3 ML VIAL SC SCH (09:06)
[2020-12-01] MEDS ORDERED: Morphine 4 MG/ML VIAL SLOW IVP PRN (09:13)
[2020-12-01] MEDS: levETIRAcetam 500 MG TAB PO SCH (09:30)
[2020-12-01] MEDS: PHOS-NAK 1 PKT PACK PO SCH ×2 (09:30→15:13)
[2020-12-01] MEDS: Thiamine 100 MG TAB PER TUBE SCH (09:30)
[2020-12-01] MEDS: NPH, Human Insulin Isophane 300 UNIT/3 ML VIAL SC SCH (09:30)
[2020-12-01] MEDS: Cefepime 1 GM in Sodium Chloride 0.9% 100 ML IVPB SCH (09:30)
[2020-12-01] MEDS: Enoxaparin Sodium 40 MG/0.4 ML SYRINGE SC SCH (09:55)
[2020-12-01 11:44] VITALS: BP 131/70
[2020-12-01] MEDS: Morphine 4 MG/ML VIAL SLOW IVP PRN (12:56)
[2020-12-01] MEDS: Pantoprazole 40 MG GRANULES PACKET PER TUBE SCH (15:15)
[2020-12-01 15:18] VITALS: TEMP 98.1
== END 2020-12-01 15:15 | disposition hospice, inpatient (51) | DRG 4 ==
LOC: ERS 23:59 → 2NO 10-28 01:36 → IMCU/EMU 10-30 14:14 → SURG B 11-08 23:12 → IMCU/EMU 11-10 08:25 → CCU 11-13 16:03
PROVIDERS: ADMIT Student in an Organized Health Care Education/Training Program; ATTEND Family Medicine
PROC: HZ2ZZZZ Detoxification Services for Substance Abuse Treatment (ICD-10-PCS; 2020-10-28)
PROC: 0DH67UZ Insertion of Feeding Device into Stomach, Via Natural or Artificial Opening (ICD-10-PCS; 2020-11-02)
PROC: 0D9670Z Drainage of Stomach with Drainage Device, Via Natural or Artificial Opening (ICD-10-PCS; 2020-11-04)
PROC: 8E0ZXY6 Isolation (ICD-10-PCS; 2020-11-10)
PROC: 5A0945A Assistance with Respiratory Ventilation, 24-96 Consecutive Hours, High Flow/Velocity Cannula (ICD-10-PCS; 2020-11-10)
PROC: 0BH18EZ Insertion of Endotracheal Airway into Trachea, Via Natural or Artificial Opening Endoscopic (ICD-10-PCS; 2020-11-13)
PROC: 5A1955Z Respiratory Ventilation, Greater than 96 Consecutive Hours (ICD-10-PCS; 2020-11-13)
PROC: 0D9P70Z Drainage of Rectum with Drainage Device, Via Natural or Artificial Opening (ICD-10-PCS; 2020-11-24)
PROC: 0B113F4 Bypass Trachea to Cutaneous with Tracheostomy Device, Percutaneous Approach (ICD-10-PCS; principal; 2020-11-27)
PROC: 0DH63UZ Insertion of Feeding Device into Stomach, Percutaneous Approach (ICD-10-PCS; 2020-11-27)
DX: K70.40 Alcoholic hepatic failure without coma (principal); A41.9 Sepsis, unspecified organism; J69.0 Pneumonitis due to inhalation of food and vomit; J80 Acute respiratory distress syndrome; R65.20 Severe sepsis without septic shock; G93.41 Metabolic encephalopathy; K56.7 Ileus, unspecified; D68.4 Acquired coagulation factor deficiency; F10.231 Alcohol dependence with withdrawal delirium; E87.2 Acidosis; E87.3 Alkalosis; E87.0 Hyperosmolality and hypernatremia; E46 Unspecified protein-calorie malnutrition; Z20.822 Contact with and (suspected) exposure to COVID-19; Z66 Do not resuscitate; Z51.5 Encounter for palliative care; R62.7 Adult failure to thrive; I10 Essential (primary) hypertension; K21.9 Gastro-esophageal reflux disease without esophagitis; E78.00 Pure hypercholesterolemia, unspecified; F32.9 Major depressive disorder, single episode, unspecified; K70.30 Alcoholic cirrhosis of liver without ascites; G83.24 Monoplegia of upper limb affecting left nondominant side; D64.9 Anemia, unspecified; I25.10 Atherosclerotic heart disease of native coronary artery without angina pectoris; Y90.0 Blood alcohol level of less than 20 mg/100 ml; I35.0 Nonrheumatic aortic (valve) stenosis; J98.6 Disorders of diaphragm; G40.909 Epilepsy, unspecified, not intractable, without status epilepticus; E78.2 Mixed hyperlipidemia; E11.65 Type 2 diabetes mellitus with hyperglycemia; K27.7 Chronic peptic ulcer, site unspecified, without hemorrhage or perforation; E87.8 Other disorders of electrolyte and fluid balance, not elsewhere classified; E87.6 Hypokalemia; J20.9 Acute bronchitis, unspecified; R45.1 Restlessness and agitation; R19.7 Diarrhea, unspecified; E88.09 Other disorders of plasma-protein metabolism, not elsewhere classified; E11.649 Type 2 diabetes mellitus with hypoglycemia without coma; T50.1X5A Adverse effect of loop [high-ceiling] diuretics, initial encounter; E55.9 Vitamin D deficiency, unspecified; E87.70 Fluid overload, unspecified; Z68.25 Body mass index [BMI] 25.0-25.9, adult; Z78.1 Physical restraint status; I25.2 Old myocardial infarction; Z98.890 Other specified postprocedural states; Z86.73 Personal history of transient ischemic attack (TIA), and cerebral infarction without residual deficits; Z79.899 Other long term (current) drug therapy; Z79.4 Long term (current) use of insulin
CPT/HCPCS: 31624; 36415; 36416; 36600; 70450; 70496; 70498; 71045; 71260; 74018; 74177; 80048; 80053; 80202; 80307; 81001; 82040; 82140; 82306; 82570; 82805; 83605; 83630; 83735; 83880; 84100; 84133; 84443; 84484; 85025; 85027; 85610; 85730; 87040; 87045; 87046; 87070; 87077; 87081; 87086; 87149; 87186; 87205; 87324; 87328; 87329; 87427; 87449; 87635; 93005; 93010; 94002; 94003; 94640; 95816; 95819; 95957; 96374; J0690; J0692; J1650; J1815; J1940; J2001; J2060; J2185; J2248; J2250; J2270; J2405; J2543; J2704; J2765; J2920; J3010; J3370; J3411; J3475; J3480; J3490; J7030; J7050; J7512; J7611; J7620; P9047; Q0163; Q9967; S0028; U0003; U0005

== ENCOUNTER 2020-12-01 15:25 | Inpatient (IN) | payer OTHER ==
[2020-12-01] MEDS ORDERED: Morphine 2 MG/ML VIAL SLOW IVP PRN ×2 (16:05→16:06)
[2020-12-01] MEDS ORDERED: Lorazepam 2 MG/ML VIAL SLOW IVP PRN ×2 (16:06→16:15)
[2020-12-01] MEDS ORDERED: Bisacodyl 10 MG SUPP PR PRN (16:06)
[2020-12-01] MEDS ORDERED: diphenhydrAMINE 50 MG/ML VIAL IVP PRN (16:15)
[2020-12-01] MEDS ORDERED: Acetaminophen 650 MG Suppository PR PRN (16:15)
[2020-12-01] MEDS ORDERED: Haloperidol Lactate 5 MG/ML VIAL SLOW IVP PRN (16:15)
[2020-12-01] MEDS ORDERED: Ondansetron PF 4 MG/2 ML Vial IVP PRN (16:15)
== END 2020-12-01 16:15 | disposition expired | DRG 951 ==
LOC: CCU 15:25
PROVIDERS: ADMIT Internal Medicine; ATTEND Internal Medicine
DX: Z51.5 Encounter for palliative care (principal); K72.00 Acute and subacute hepatic failure without coma; J96.01 Acute respiratory failure with hypoxia; J69.0 Pneumonitis due to inhalation of food and vomit; A41.9 Sepsis, unspecified organism; R65.21 Severe sepsis with septic shock; G93.41 Metabolic encephalopathy; E72.20 Disorder of urea cycle metabolism, unspecified; D68.9 Coagulation defect, unspecified; E87.2 Acidosis; Z66 Do not resuscitate; Z20.822 Contact with and (suspected) exposure to COVID-19; I10 Essential (primary) hypertension; K27.9 Peptic ulcer, site unspecified, unspecified as acute or chronic, without hemorrhage or perforation; K21.9 Gastro-esophageal reflux disease without esophagitis; E11.9 Type 2 diabetes mellitus without complications; E78.5 Hyperlipidemia, unspecified; K70.30 Alcoholic cirrhosis of liver without ascites; F10.11 Alcohol abuse, in remission; D64.9 Anemia, unspecified; R62.7 Adult failure to thrive; E87.6 Hypokalemia; E83.42 Hypomagnesemia; E83.39 Other disorders of phosphorus metabolism; E55.9 Vitamin D deficiency, unspecified; Z79.82 Long term (current) use of aspirin; Z79.4 Long term (current) use of insulin; Z79.899 Other long term (current) drug therapy; I25.2 Old myocardial infarction; I69.344 Monoplegia of lower limb following cerebral infarction affecting left non-dominant side
CPT/HCPCS: J2270